=== PATIENT | female | born 1945 | race Caucasian/White ===

== ENCOUNTER 2018-12-16 11:54 | Inpatient (IN) ==
--- NOTE | 2018-12-16 13:00 | Emergency Department Note ---
Disposition Clinical Impression: Leg weakness Qualifiers: Laterality: left Qualified Code(s): R29.898 - Other symptoms and signs involving the musculoskeletal system Disposition: Admitted As Inpatient Condition: Good Time of Disposition: 16:57 Weakness HPI - General Chief complaint: ED Weakness Stated complaint: difficulty walking Time Seen by Provider: 12/16/18 12:00 Source: EMS Mode of arrival: ambulatory Limitations: no limitations Nursing Notes Reviewed: Yes Vital Signs Reviewed: Yes - History of Present Illness HPI Narrative: 73-year-old female presents to the emergency department for generalized weakness. Home health nurse came in today and said that she was having a more difficult time walking or worried that something was wrong. Patient has had no fevers, chills, cough congestion, painful urination or any pain anywhere else. She says she does feel little bit weaker in her legs where she is having more difficult time lifting up and moving them.. Patient said she noticed this about 2-3 days ago and it slowly progressively gotten worse. She is not complaining of any pain. She did fall partly 2 weeks ago said she has been acting normal since then. Patient otherwise having no other complaints at this time. Pain Scale: 0 - Related Data Allergies Allergy/AdvReac Type Severity Reaction Status Date / Time No Known Allergies Allergy Verified 11/20/18 11:42 All systems ED: reviewed and negative except as stated. Review of Systems: As Per HPI Past Medical History - Past Medical History Attestation: Yes The following information was validated with the patient. Source: patient Medical history: Reports: CVA, hyperlipidemia, hypertension, myocardial infarction, seizures Psychiatric history: Reports: no psych history - Social History Smoking Status: Light tobacco smoker Smokeless Tobacco Status: No Alcohol use: Reports: none Drug use: Reports: none Physical Exam - General Limitations: no limitations General appearance: alert, in no apparent distress - Head Head exam: atraumatic, normocephalic, normal inspection - Eye Eye exam: Present: normal appearance, PERRL, EOMI - ENT ENT exam: normal exam, normal oropharynx, mucous membranes moist - Neck Neck exam: Present: normal inspection, full ROM, trachea midline - Chest Chest inspection: Present: normal inspection, symmetric chest wall rise - Respiratory Respiratory exam: Present: normal lung sounds bilaterally - Cardiovascular Cardiovascular exam: Present: regular rate, normal rhythm, normal heart sounds - Abdominal Exam Abdominal exam: Present: soft, Non-Tender, normal bowel sounds. Absent: tenderness, distention, guarding, rebound, rigidity - Extremities Exam Extremities exam: Present: normal inspection, full ROM. Absent: tenderness, pedal edema - Back Exam Back exam: Present: normal inspection, full ROM. Absent: tenderness, CVA tenderness (R), CVA tenderness (L) - Neurological Exam Neurological exam: Present: alert, oriented X3 - Expanded Neurological Exam Patient oriented to: Present: person, place, time Cranial nerves: EOM function (II, III, IV, ): Normal, facial sensation (V): Normal, facial palsy (VII): Normal, spinal accessory function (XI): Normal, tongue deviation (XII): Normal Cerebellar function: finger to nose: Normal, heel to martinez: Normal Motor strength - LUE: 4/5 Motor strength - RUE: 4/5 Motor strength - LLE: 4/5 Motor strength - RLE: 4/5 Upper motor neuron exam: rosette neglect: Absent bilaterally, pronator drift: Absent bilaterally Sensory exam upper extremity: light touch: Normal Sensory exam lower extremity: light touch: Normal Coma Scale Eye Opening: Spontaneous Coma Scale Motor Response: Obeys Commands Coma Scale Verbal Response: Oriented Coma Scale Total: 15 - Skin Skin exam: Present: warm, dry, intact, normal color Course Course Narrative: We have basic lab work including CBC BMP, mag, urinalysis chest x-ray troponin as well as a CT of the head throat any acute pathology. Patient stable at this time. Disposition is pending results Vital Signs Temperature 97.7 F 12/16/18 11:56 Pulse Rate 61 12/16/18 11:56 Respiratory Rate 16 12/16/18 11:56 Blood Pressure 161/61 12/16/18 11:56 O2 Sat by Pulse Oximetry 100 12/16/18 11:56 Temperature 97.7 F 12/16/18 11:56 Pulse Rate 95 12/16/18 13:53 Respiratory Rate 16 12/16/18 11:56 Blood Pressure 153/70 12/16/18 13:53 O2 Sat by Pulse Oximetry 100 12/16/18 13:53 Oxygen Delivery Oxygen Delivery Room Air Weakness - MDM Narrative Medical decision making narrative: 73-year-old female here with weakness. Labs BACK no acute abnormalities. Lumbar x-ray had no acute findings head CT also was normal. Patient is still unable to walk but she did have a normal neurological exam of both motor and sensation to both legs bilaterally. Due to this they wanted to admit the patient for further evaluation of the leg weakness. Patient's okay with this plan. Spoke with the on-call hospitalist Dr. Kruse who agreed to admit the patient to their service. Patient is admitted in stable condition. They wanted us to speak with pain management and Dr. Funes before the admission. I did speak with both of them and they said they will consult and see the patient while in the hospital. Patient stable at time of disposition Chest X-Ray 12/16/18 12:18 IMPRESSION: No acute process. D/ / Rashid Izquierdo MD / Rashid Izquierdo MD Interpreting Provider: Rashid Izquierdo MD Head CT 12/16/18 12:18 IMPRESSION: No acute intracranial abnormality. Multiple remote infarcts as described above. Consider MRI for further evaluation. D/ / Evin Maki MD / Evin Maki MD Interpreting Provider: Evin Maki MD Lumbar Spine X-Ray 12/16/18 12:19 IMPRESSION: Unchanged compression deformity of L1 and moderate multilevel degenerative changes. D/ / Evin Maki MD / Evin Maki MD Interpreting Provider: Evin Maki MD - Medical Records Medical records reviewed: Yes I reviewed the patient's medical records. - Lab Data Lab results reviewed: Yes I reviewed the patient's lab results. Result diagrams: 12/16/18 13:30 12/16/18 13:55 Lab Results 12/16/18 12/16/18 12/16/18 Range/Units 13:05 13:30 13:30 WBC 6.5 (4.3-11.1) K/mcL RBC 3.90 (3.82-4.97) M/mcL Hgb 12.5 (11.5-15.4) g/dL Hct 38.6 (35.3-44.9) % MCV 99.0 (83.0-100.0) fL MCH 32.1 (28.0-33.3) pg MCHC 32.4 (31.6-35.5) g/dL RDW 14.0 (11.5-14.5) % Plt Count 121 L (140-400) K/mcL MPV 10.5 (9.4-12.4) fL Immature Gran % 0.3 (0-4) % Seg Neutrophils % 65.0 % Lymphocytes % 23.5 % Monocytes % 8.8 % Eosinophils % 1.8 % Basophils % 0.6 % Neutrophils # 4.2 (1.6-8.9) K/mcL Lymphocytes # 1.5 (0.6-4.6) K/mcL Monocytes # 0.6 (0.0-1.3) K/mcL Eosinophils # 0.1 (0.0-0.6) K/mcL Basophils # 0.0 (0.0-0.2) K/mcL Sodium (136-145) mEq/L Potassium (3.5-5.1) mEq/L Chloride (98-107) mEq/L Carbon Dioxide (23-29) mEq/L BUN (8-23) mg/dL Creatinine (0.60-1.20) mg/dL Est GFR ( Amer) (> 60) Est GFR (Non-Af Amer) (> 60) BUN/Creatinine Ratio (6-26) Glucose (70-105) mg/dL Calculated Osmolality (280-300) Calcium (8.6-10.3) mg/dL Magnesium (1.6-2.6) mg/dL Total Bilirubin (0.3-1.0) mg/dL AST (13-39) Units/L ALT (7-52) Units/L Alkaline Phosphatase (34-104) Units/L Troponin I < 0.03 (< 0.04) ng/mL Serum Total Protein (6.4-8.9) g/dL Albumin (3.5-5.7) g/dL Globulin (2.4-3.5) g/dL Albumin/Globulin Ratio (1.1-2.2) Urine Color (Yellow) Urine Clarity (Clear) Urine pH (5.0-8.0) pH Units Ur Specific [place] (1.010-1.025) Urine Protein (Neg-Trace) mg/dL Urine Glucose (UA) (Normal) mg/dL Urine Ketones (Negative) mg/dL Urine Blood (Negative) Urine Nitrite (Negative) Urine Bilirubin (Negative) Urine Urobilinogen (Normal) mg/dL Ur Leukocyte Esterase (Negative) Ur Culture Indicated? (NO) Specimen Rejected Hemolyzed 12/16/18 12/16/18 Range/Units 13:40 13:55 WBC (4.3-11.1) K/mcL RBC (3.82-4.97) M/mcL Hgb (11.5-15.4) g/dL Hct (35.3-44.9) % MCV (83.0-100.0) fL MCH (28.0-33.3) pg MCHC (31.6-35.5) g/dL RDW (11.5-14.5) % Plt Count (140-400) K/mcL MPV (9.4-12.4) fL Immature Gran % (0-4) % Seg Neutrophils % % Lymphocytes % % Monocytes % % Eosinophils % % Basophils % % Neutrophils # (1.6-8.9) K/mcL Lymphocytes # (0.6-4.6) K/mcL Monocytes # (0.0-1.3) K/mcL Eosinophils # (0.0-0.6) K/mcL Basophils # (0.0-0.2) K/mcL Sodium 133 L (136-145) mEq/L Potassium 4.7 (3.5-5.1) mEq/L Chloride 108 H (98-107) mEq/L Carbon Dioxide 18 L (23-29) mEq/L BUN 39 H (8-23) mg/dL Creatinine 1.73 H (0.60-1.20) mg/dL Est GFR ( Amer) 35 L (> 60) Est GFR (Non-Af Amer) 29 L (> 60) BUN/Creatinine Ratio 23 (6-26) Glucose 83 (70-105) mg/dL Calculated Osmolality 285 (280-300) Calcium 9.9 (8.6-10.3) mg/dL Magnesium 2.1 (1.6-2.6) mg/dL Total Bilirubin 0.6 (0.3-1.0) mg/dL AST 13 (13-39) Units/L ALT 9 (7-52) Units/L Alkaline Phosphatase 87 (34-104) Units/L Troponin I (< 0.04) ng/mL Serum Total Protein 7.0 (6.4-8.9) g/dL Albumin 4.3 (3.5-5.7) g/dL Globulin 2.7 (2.4-3.5) g/dL Albumin/Globulin Ratio 1.6 (1.1-2.2) Urine Color Yellow (Yellow) Urine Clarity Clear (Clear) Urine pH 5.5 (5.0-8.0) pH Units Ur Specific [place] 1.015 (1.010-1.025) Urine Protein Negative (Neg-Trace) mg/dL Urine Glucose (UA) Normal (Normal) mg/dL Urine Ketones Negative (Negative) mg/dL Urine Blood Negative (Negative) Urine Nitrite Negative (Negative) Urine Bilirubin Negative (Negative) Urine Urobilinogen Normal (Normal) mg/dL Ur Leukocyte Esterase Negative (Negative) Ur Culture Indicated? NO (NO) Specimen Rejected - Radiology Data Radiology results reviewed: Yes I reviewed the patient's radiology results. - EKG Data EKG attestation: Yes I reviewed and interpreted this EKG. EKG results narrative: EKG done at 1227 review by myself and attending shows sinus rhythm a rate of 61, CT interval 209, QRS 98, QTC 434. There is no acute ST changes no acute T-wave changes no other signs of ischemia. No signs of hypertrophy, heart strain, heart block. No WPW/Brugada/HOCM. No old EKG to compare with Attestation Statement - Attestation Attestation: I, Govind Sharma DO, examined this patient [id number] and my medical decision-making was reviewed with Dr. Ismael Oropeza, Resident Physician. I agree with the documented findings, disposition and treatment plan as described except to the extent set forth below. I personally supervised and was present for the busch/critical portions of the procedures completed by the resident documented below. Please see my progress notes for details.
[2018-12-16 13:39] LABS: Basophils % 0.6 %; Eosinophils # 0.1 K/mcL (0.0-0.6); Eosinophils % 1.8 %; Hematocrit 38.6 % (35.3-44.9); Hemoglobin 12.5 g/dL (11.5-15.4); Immature Granulocytes % 0.3 % (0-4); Lymphocytes # 1.5 K/mcL (0.6-4.6); Lymphocytes % 23.5 %; Mean Corpuscular HGB Conc 32.4 g/dL (31.6-35.5); Mean Corpuscular Hemoglobin 32.1 pg (28.0-33.3); Mean Platelet Volume 10.5 fL (9.4-12.4); Monocytes # 0.6 K/mcL (0.0-1.3); Monocytes % 8.8 %; Neutrophils # 4.2 K/mcL (1.6-8.9); Platelet Count 121 K/mcL (140-400)
--- NOTE | 2018-12-16 13:46 | Emergency Department Note ---
Disposition Clinical Impression: Leg weakness Qualifiers: Laterality: left Qualified Code(s): R29.898 - Other symptoms and signs involving the musculoskeletal system Disposition: Admitted As Inpatient Condition: Fair Referrals: NONE,PCP [Primary Care Provider] - Time of Disposition: 17:38 General Adult HPI - General Chief complaint: ED Weakness Stated complaint: difficulty walking Time Seen by Provider: 12/16/18 12:00 Source: EMS Mode of arrival: ambulatory Limitations: no limitations - History of Present Illness Pain Scale: 0 - Related Data Allergies Allergy/AdvReac Type Severity Reaction Status Date / Time No Known Allergies Allergy Verified 11/20/18 11:42 Past Medical History - Past Medical History Medical history: Reports: CVA, hyperlipidemia, hypertension, myocardial infarction, seizures Psychiatric history: Reports: no psych history - Social History Smoking Status: Light tobacco smoker Smokeless Tobacco Status: No Alcohol use: Reports: none Drug use: Reports: none Physical Exam - General Limitations: no limitations General appearance: alert, in no apparent distress Course Vital Signs Temperature 97.7 F 12/16/18 11:56 Pulse Rate 61 12/16/18 11:56 Respiratory Rate 16 12/16/18 11:56 Blood Pressure 161/61 12/16/18 11:56 O2 Sat by Pulse Oximetry 100 12/16/18 11:56 Temperature 97.7 F 12/16/18 11:56 Pulse Rate 95 12/16/18 13:53 Respiratory Rate 16 12/16/18 11:56 Blood Pressure 153/70 12/16/18 13:53 O2 Sat by Pulse Oximetry 100 12/16/18 13:53 Oxygen Delivery Oxygen Delivery Room Air Medical Decision Making - Lab Data Result diagrams: 12/16/18 13:30 12/16/18 13:55 Lab Results 12/16/18 12/16/18 12/16/18 Range/Units 13:05 13:30 13:30 WBC 6.5 (4.3-11.1) K/mcL RBC 3.90 (3.82-4.97) M/mcL Hgb 12.5 (11.5-15.4) g/dL Hct 38.6 (35.3-44.9) % MCV 99.0 (83.0-100.0) fL MCH 32.1 (28.0-33.3) pg MCHC 32.4 (31.6-35.5) g/dL RDW 14.0 (11.5-14.5) % Plt Count 121 L (140-400) K/mcL MPV 10.5 (9.4-12.4) fL Immature Gran % 0.3 (0-4) % Seg Neutrophils % 65.0 % Lymphocytes % 23.5 % Monocytes % 8.8 % Eosinophils % 1.8 % Basophils % 0.6 % Neutrophils # 4.2 (1.6-8.9) K/mcL Lymphocytes # 1.5 (0.6-4.6) K/mcL Monocytes # 0.6 (0.0-1.3) K/mcL Eosinophils # 0.1 (0.0-0.6) K/mcL Basophils # 0.0 (0.0-0.2) K/mcL Sodium (136-145) mEq/L Potassium (3.5-5.1) mEq/L Chloride (98-107) mEq/L Carbon Dioxide (23-29) mEq/L BUN (8-23) mg/dL Creatinine (0.60-1.20) mg/dL Est GFR ( Amer) (> 60) Est GFR (Non-Af Amer) (> 60) BUN/Creatinine Ratio (6-26) Glucose (70-105) mg/dL Calculated Osmolality (280-300) Calcium (8.6-10.3) mg/dL Magnesium (1.6-2.6) mg/dL Total Bilirubin (0.3-1.0) mg/dL AST (13-39) Units/L ALT (7-52) Units/L Alkaline Phosphatase (34-104) Units/L Troponin I < 0.03 (< 0.04) ng/mL Serum Total Protein (6.4-8.9) g/dL Albumin (3.5-5.7) g/dL Globulin (2.4-3.5) g/dL Albumin/Globulin Ratio (1.1-2.2) Urine Color (Yellow) Urine Clarity (Clear) Urine pH (5.0-8.0) pH Units Ur Specific [place] (1.010-1.025) Urine Protein (Neg-Trace) mg/dL Urine Glucose (UA) (Normal) mg/dL Urine Ketones (Negative) mg/dL Urine Blood (Negative) Urine Nitrite (Negative) Urine Bilirubin (Negative) Urine Urobilinogen (Normal) mg/dL Ur Leukocyte Esterase (Negative) Ur Culture Indicated? (NO) Specimen Rejected Hemolyzed 12/16/18 12/16/18 Range/Units 13:40 13:55 WBC (4.3-11.1) K/mcL RBC (3.82-4.97) M/mcL Hgb (11.5-15.4) g/dL Hct (35.3-44.9) % MCV (83.0-100.0) fL MCH (28.0-33.3) pg MCHC (31.6-35.5) g/dL RDW (11.5-14.5) % Plt Count (140-400) K/mcL MPV (9.4-12.4) fL Immature Gran % (0-4) % Seg Neutrophils % % Lymphocytes % % Monocytes % % Eosinophils % % Basophils % % Neutrophils # (1.6-8.9) K/mcL Lymphocytes # (0.6-4.6) K/mcL Monocytes # (0.0-1.3) K/mcL Eosinophils # (0.0-0.6) K/mcL Basophils # (0.0-0.2) K/mcL Sodium 133 L (136-145) mEq/L Potassium 4.7 (3.5-5.1) mEq/L Chloride 108 H (98-107) mEq/L Carbon Dioxide 18 L (23-29) mEq/L BUN 39 H (8-23) mg/dL Creatinine 1.73 H (0.60-1.20) mg/dL Est GFR ( Amer) 35 L (> 60) Est GFR (Non-Af Amer) 29 L (> 60) BUN/Creatinine Ratio 23 (6-26) Glucose 83 (70-105) mg/dL Calculated Osmolality 285 (280-300) Calcium 9.9 (8.6-10.3) mg/dL Magnesium 2.1 (1.6-2.6) mg/dL Total Bilirubin 0.6 (0.3-1.0) mg/dL AST 13 (13-39) Units/L ALT 9 (7-52) Units/L Alkaline Phosphatase 87 (34-104) Units/L Troponin I (< 0.04) ng/mL Serum Total Protein 7.0 (6.4-8.9) g/dL Albumin 4.3 (3.5-5.7) g/dL Globulin 2.7 (2.4-3.5) g/dL Albumin/Globulin Ratio 1.6 (1.1-2.2) Urine Color Yellow (Yellow) Urine Clarity Clear (Clear) Urine pH 5.5 (5.0-8.0) pH Units Ur Specific [place] 1.015 (1.010-1.025) Urine Protein Negative (Neg-Trace) mg/dL Urine Glucose (UA) Normal (Normal) mg/dL Urine Ketones Negative (Negative) mg/dL Urine Blood Negative (Negative) Urine Nitrite Negative (Negative) Urine Bilirubin Negative (Negative) Urine Urobilinogen Normal (Normal) mg/dL Ur Leukocyte Esterase Negative (Negative) Ur Culture Indicated? NO (NO) Specimen Rejected Attestation Statement - Attestation Attestation: I, Govind Sharma DO, examined this patient [id number] and my medical decision-making was reviewed with Dr. Ismael Oropeza Resident Physician. I agree with the documented findings, disposition and treatment plan as described except to the extent set forth below. I personally supervised and was present for the busch/critical portions of the procedures completed by the resident documented below. Please see my progress notes for details. 73-year-old female presents emergency room with complaint of generalized weakness. Patient was seen by her home health aide today and they are concerned because of her acting ill. She denies any fevers or chills. She has not fallen or injured herself recently. She did fall one week ago. She is on Plavix. She denies any chest pain or shortness of breath. She has not had any other compla ints or issues at this point. She does have a known lower lumbar related issue at his had MRI completed approximate one month ago. She is chronically incontinent of urine. Denies any other symptoms or complaints at this point. Patient is resting comfortably in the bed. She is slightly slow to respond but shows no neurologic deficits. Pupils are equal round reactive. Extraocular muscles are intact. Oropharynx is patent. Trachea is midline. Lungs are clear. Heart is regular. She has no guarding or rigidity to the abdomen. She has no point tenderness at this time. No pulsatile masses or lesions noted. Extremities otherwise normal. No visible signs of ataxia. Patient does have w eakness in the lower extremities were otherwise her pulses are intact. Weakness is chronic in nature. Patient does not have any other complaints or issues at this point. Screening evaluation clinic CT the head chest x-ray EKG CBC chemistry troponin and urinalysis along with imaging of the lumbar spine will be completed. Patient is otherwise stable. She does not want any pain medication at this time. She denies any other complaints or issues. See detailed documentation of the physical exam, medical intervention, medical decision- making and disposition in the resident physician's note. No critical care by the patient's treatment course at this time. 1715 Patient has negative workup. This time. Admission process to be established secondary to inability to ambulate and weakness in her left leg. MRI imaging was reviewed. The hospitalist was contacted in detailed review the presentation symptoms medical history were discussed. Dr. Noel reviewed the case. She requested that a consult be placed for spinal surgery. We did discuss the findings with the on-call spinal physician Dr. Funes. Recommended consultation the inpatient setting for evaluation. Otherwise no other emergent intervention required. Patient will be managed here in the emergency department until the admission process is completed. No other acute issues noted during this treatment course are evaluation. Patient otherwise stable.
[2018-12-16 13:50] LABS: Bilirubin,Urine Negative (Negative); Blood,Urine Negative (Negative); Clarity,Urine Clear (Clear); Color,Urine Yellow (Yellow); Glucose,Urine (UA) Normal (Normal); Ketones,Urine Negative (Negative); Leukocyte Esterase,Urine Negative (Negative); Nitrite,Urine Negative (Negative); PH,Urine 5.5 pH Units (5.0-8.0); Protein,Urine Negative (Neg-Trace); Specific Gravity,Urine 1.015 (1.010-1.025); Urobilinogen,Urine Normal (Normal)
[2018-12-16 15:11] LABS: Albumin 4.3 g/dL (3.5-5.7); Albumin/Globulin Ratio 1.6 (1.1-2.2); Bilirubin,Total 0.6 mg/dL (0.3-1.0); Calcium 9.9 mg/dL (8.6-10.3); Globulin 2.7 g/dL (2.4-3.5); Potassium 4.7 mEq/L (3.5-5.1)
[2018-12-16 15:47] LABS: Magnesium 2.1 mg/dL (1.6-2.6)
--- NOTE | 2018-12-16 17:01 | Internal Med History&Physical ---
Date of Encounter: 12/16/18 Time of Encounter: 16:53 Internal Medicine - H&P: HPI Chief complaint: leg weakness Admitted From: Home Plans for Post Hospital Care: Transfer Halfway Facility History of present illness: Ms. Paige is a 73 year old female with past medical history of CVA, seizures, hypertension, hyperlipidemia, peripheral vascular disease status post stenting, [place] in 97 history of incontinence for about 7 years came in as she was sent by home health as she was concerned about her weakness. Patient mentioned she has been feeling difficulty walking for past 3-4 days especially on her right leg. Mentions her left leg feels at baseline but right feels weak. Denies any numbness or tingling. She has baseline urinary incontinence for 7 years which was managed by primary care physician. She does not know why she had incontinence. Denies any bowel incontinence. Denies any fevers chills nausea vomiting or diarrhea. Denies any injury or fall except few months ago. She has chronic back pain since last year. Denies any vision difficulty or difficulty speaking or swallowing. Denies any abdominal pain. She has a history of peripheral vascular disease with a stent placed in 2012 for nonhealing ulcer on left leg. Denies any leg pain with ambulation before her current illness. Denies any shooting pain. Patient had a MRI done outpatient about a month ago which did not show any acute abnormality but showed spinal telma narrowing and foraminal narrowing in lumbar spine. Patient had x-ray of the spine which did not show any new finding except compression deformity at L1 and degenerative changes. Head CT was obtained which showed multiple remote infarcts. She does not know all of her medication but mentioned few which she is taking including Keppra, metoprolol, lisinopril, aspirin, vitamin D and iron. Nares any allergies. Does not know any family history significant in parents or siblings. Past Med Surg Social Fam HX - Past Medical History Medical history: CVA, hyperlipidemia, hypertension, myocardial infarction, seizures Additional medical history: Patient states she has a broken back but is unaware when she broke it. Psychiatric history: no psych history - Past Surgical History Additional surgical history: stent in heart, stent in leg. hysterectomy, appendectomy - Social History Smoking Status: Light tobacco smoker Smokeless Tobacco Status: No Alcohol use: none Drug use: none Internal Medicine - H&P: Meds Allergy/AdvReac Type Severity Reaction Status Date / Time No Known Allergies Allergy Verified 11/20/18 11:42 All Systems PM: A 10-system review of systems was performed and is negative for pertinent find ings except as documented above in the HPI. - Constitutional Vitals: Temp Pulse Resp BP Pulse Ox 97.7 F 95 16 153/70 100 12/16/18 11:56 12/16/18 13:53 12/16/18 11:56 12/16/18 13:53 12/16/18 13:53 Exam: Constitutional: Vitals as noted. Conversant. No Apparent Distress.slow to respond. Eyes : Sclera white, conjunctiva clear, no lid lag, PEARLA. ENT : Grossly normal hearing. Oropharyngeal exam unremarkable. Moist mucus membranes. No JVD, no cervical lymphadenopathy. no thyromegaly or mass. Respiratory : Clear to auscultation bilaterally. No accessory muscle use, rales, rhonchi or wheezes Cardiovascular : RRR, +S1, +S2. systolic murmur present, no gallop, rubs. GI/Abdominal : Soft, Non-tender, Non-distended, normal bowel sounds, soft, no peritoneal signs. Musculoskeletal: no edema or cyanosis. warm extremities, weak peripheral pulses b/l,no calf tenderness. Neurological: AO X3, CN II-XII grossly intact, LLE 3/5, 2/5 in RLE, weak Rt planter flexor and extensors than left. Pych: Good insight and judgement. Intact memory. AOx3. Internal Med - H&P Results - Labs CBC & Chem 7: 12/16/18 13:30 12/16/18 13:55 Labs: Short CBC 12/16/18 Range/Units 13:30 WBC 6.5 (4.3-11.1) K/mcL Hgb 12.5 (11.5-15.4) g/dL Hct 38.6 (35.3-44.9) % Plt Count 121 L (140-400) K/mcL Neutrophils # 4.2 (1.6-8.9) K/mcL BMP 12/16/18 13:55 Sodium 133 L Potassium 4.7 Chloride 108 H Carbon Dioxide 18 L BUN 39 H Creatinine 1.73 H Glucose 83 Calcium 9.9 Cardiac Enzymes 12/16/18 Range/Units 13:05 Troponin I < 0.03 (< 0.04) ng/mL Liver Function 12/16/18 Range/Units 13:55 Total Bilirubin 0.6 (0.3-1.0) mg/dL AST 13 (13-39) Units/L ALT 9 (7-52) Units/L Alkaline Phosphatase 87 (34-104) Units/L Albumin 4.3 (3.5-5.7) g/dL Urine 12/16/18 Range/Units 13:40 Urine Color Yellow (Yellow) Urine Clarity Clear (Clear) Urine pH 5.5 (5.0-8.0) pH Units Ur Specific [place] 1.015 (1.010-1.025) Urine Protein Negative (Neg-Trace) mg/dL Urine Glucose (UA) Normal (Normal) mg/dL - EKG Data -: EKG Interpreted by Myself - Impressions ITS Impressions Chest X-Ray 12/16/18 12:18 IMPRESSION: No acute process. D/ / Rashid Izquierdo MD / Rashid Izquierdo MD Interpreting Provider: Rashid Izquierdo MD Head CT 12/16/18 12:18 IMPRESSION: No acute intracranial abnormality. Multiple remote infarcts as described above. Consider MRI for further evaluation. D/ / Evin Maki MD / Evin Maki MD Interpreting Provider: Evin Maki MD Lumbar Spine X-Ray 12/16/18 12:19 IMPRESSION: Unchanged compression deformity of L1 and moderate multilevel degenerative changes. D/ / Evin Maki MD / Evin Maki MD Interpreting Provider: Evin Maki MD - Assessment and Plan (1) Right leg weakness Current Visit: Yes Status: Acute Assessment and plan: Concern for lower extremity weakness with difficulty walking for 3-4 days Right lower extremity weakness more pronounced than left Lumbar spinal imaging with compression fracture which is unchanged previous MRI with spinal Narrowing and Foraminal Narrowing CT had with multiple old strokes. Patient without any other focal deficit except right lower extremity weakness and unchanged left lower extremity weakness We will get MRI of brain to rule out any acute/subacute stroke. Will resume antiplatelet once confirmed Spinal surgery has been consulted for evaluation for spinal stenosis contributing to her symptoms (2) PVD (peripheral vascular disease) Current Visit: Yes Status: Acute (3) HTN (hypertension) Current Visit: Yes Status: Acute Assessment and plan: Relatively stable slightly on the higher end Hold home lisinopril for now given renal function Resume other antihypertensive after confirming pharmacy including metoprolol Qualifiers: Hypertension type: essential hypertension Qualified Code(s): I10 - Essential (primary) hypertension (4) Seizures Current Visit: Yes Status: Acute Assessment and plan: Patient on Keppra at home. Patient unaware of her dosage Reconfirm home dosage with pharmacy and resume (5) Acute kidney injury superimposed on CKD Current Visit: Yes Status: Acute Assessment and plan: Patient with some decreased appetite over the past few days We will keep on gentle IV fluids (6) DVT prophylaxis Current Visit: Yes Status: Acute Assessment and plan: heparin sc - Time Spent With Patient Total time spent is greater than 50% in coordination of care (as documented) at patient's floor/unit and/or counseling patient:
[2018-12-16] MEDS ORDERED: Naloxone 0.4 MG/ML INJ IVP PRN (17:46)
[2018-12-17] MEDS: Ringers Solution, Lactated 1,000 ML IVC SCH ×3 (00:35→23:27)
[2018-12-17] MEDS: *HR* Heparin 5,000 UNIT/ML VIAL SQ SCH ×4 (00:38→21:26)
[2018-12-17] MEDS ORDERED: Aspirin 81 MG TAB.CHEW PO ONE (06:13)
--- NOTE | 2018-12-17 08:08 | Internal Med Progress Note ---
Hospitalist Progress Note - Encounter Date of Encounter: 12/17/18 Time of Encounter: 08:05 - Subjective Interval History: Patient seen and examined this morning at bedside. No acute overnight events. Denies new complaints. Still complaining of back pain. Still with right lower extremity weakness - Exam Vitals: Temp Pulse Resp BP Pulse Ox 98 F 98 18 139/66 92 12/17/18 04:16 12/17/18 07:54 12/17/18 07:54 12/17/18 07:54 12/17/18 07:54 Exam: Constitutional: Vitals as noted. Conversant. No Apparent Distress.slow to respond. Respiratory : Clear to auscultation bilaterally. No accessory muscle use, rales, rhonchi or wheezes Cardiovascular : RRR, +S1, +S2. systolic murmur present, no gallop, rubs. GI/Abdominal : Soft, Non-tender, Non-distended, normal bowel sounds, soft, no peritoneal signs. Musculoskeletal: no edema or cyanosis. warm extremities, weak peripheral pulses b/l,no calf tenderness. Neurological: AO X3, CN II-XII grossly intact, LT Pupil slightly larger than rt but extarocular movement intact, LLE 3/5, 2/5 in RLE, weak Rt planter flexor and extensors than left. Pych: Good insight and judgement. Intact memory. AOx3. - Assessment and Plan (1) Right leg weakness Current Visit: Yes Status: Acute (2) PVD (peripheral vascular disease) Current Visit: Yes Status: Acute (3) HTN (hypertension) Current Visit: Yes Status: Acute (4) Seizures Current Visit: Yes Status: Acute (5) Acute kidney injury superimposed on CKD Current Visit: Yes Status: Acute (6) DVT prophylaxis Current Visit: Yes Status: Acute - Summary of Assessment and Plan Summary of Assessment and Plan: Assessment Right leg weakness Acute stroke PVD HTN Seizures Paulino DVT ppx Plan - MRI with acute stroke on Lt may be contributing to Rt LE weakness. Also with spinal Narrowing and Foraminal Narrowing on MRI. ortho and neuro consulted - Give aspirin 325. Is on aspirin and plavix at home.Will resume. Patient compliant. Await neurology recommendations. c/w Home seizure medications. f/u ECHO, carotid. c/w tele - c/w IVF. f/u labs - Hold antihypertensive for permissive HTN for now. - c/w home levothyroxin - Time Spent with Patient Total time spent is greater than 50% in coordination of care (as documented) at patient's floor/unit and/or counseling patient: Internal Medicine: Result - Labs CBC & Chem 7: 12/16/18 13:30 12/16/18 13:55 Labs: Short CBC 12/16/18 Range/Units 13:30 WBC 6.5 (4.3-11.1) K/mcL Hgb 12.5 (11.5-15.4) g/dL Hct 38.6 (35.3-44.9) % Plt Count 121 L (140-400) K/mcL Neutrophils # 4.2 (1.6-8.9) K/mcL BMP 12/16/18 13:55 Sodium 133 L Potassium 4.7 Chloride 108 H Carbon Dioxide 18 L BUN 39 H Creatinine 1.73 H Glucose 83 Calcium 9.9 Cardiac Enzymes 12/16/18 Range/Units 13:05 Troponin I < 0.03 (< 0.04) ng/mL Liver Function 12/16/18 Range/Units 13:55 Total Bilirubin 0.6 (0.3-1.0) mg/dL AST 13 (13-39) Units/L ALT 9 (7-52) Units/L Alkaline Phosphatase 87 (34-104) Units/L Albumin 4.3 (3.5-5.7) g/dL Urine 12/16/18 Range/Units 13:40 Urine Color Yellow (Yellow) Urine Clarity Clear (Clear) Urine pH 5.5 (5.0-8.0) pH Units Ur Specific [place] 1.015 (1.010-1.025) Urine Protein Negative (Neg-Trace) mg/dL Urine Glucose (UA) Normal (Normal) mg/dL - Impressions Impressions Chest X-Ray 12/16/18 12:18 IMPRESSION: No acute process. D/ / Rashid Izquierdo MD / Rashid Izquierdo MD Interpreting Provider: Rashid Izquierdo MD Head CT 12/16/18 12:18 IMPRESSION: No acute intracranial abnormality. Multiple remote infarcts as described above. Consider MRI for further evaluation. D/ / Evin Maki MD / Evin Maki MD Interpreting Provider: Evin Maki MD Lumbar Spine X-Ray 12/16/18 12:19 IMPRESSION: Unchanged compression deformity of L1 and moderate multilevel degenerative changes. D/ / Evin Maki MD / Evin Maki MD Interpreting Provider: Evin Maki MD Brain MRI 12/16/18 17:34 IMPRESSION: 1. Acute ischemic infarcts in the high left frontal lobe. 2. No mass effect or hemorrhage. 3. Left frontal and right occipital encephalomalacia in keeping with sequela of prior infarct. 4. Remote lacunar infarcts in the bilateral basal ganglia, thalami, and cerebellar hemispheres. D/ / Tee Robles / Tee Robles Interpreting Provider: Tee Robles Consult Discharge Plan - Plan Referrals: NONE,PCP [Primary Care Provider] - (3) HTN (hypertension) Qualifiers: Hypertension type: essential hypertension Qualified Code(s): I10 - Essential (primary) hypertension
[2018-12-17] MEDS: levETIRAcetam 250 MG TABLET PO SCH ×2 (08:57→21:25)
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
[2018-12-17] MEDS ORDERED: Perflutren Lipid Microsphere 1.3 ML in 0.9 % Sodium Chloride 8.7 ML IVP ONE (10:20)
[2018-12-17] MEDS: Nystatin POWDER 30 GM BOTTLE TP SCH ×2 (11:20→21:28)
[2018-12-17] MEDS: Aspirin Enteric Coated 81 MG Tablet PO SCH (12:37)
--- NOTE | 2018-12-17 15:12 | Electrocardiograph Report ---
[place] [id number] Test Date: 2018-12-16 Pat Name: Lanette Paige Department: [id number] Room: 2NE16 Gender: F Treasury Manager: : 1945 Requested By: Ismael Oropeza Order Number: [id number] Reading MD: Josef Berry Measurements Intervals Fisher Rate: 61 P: 93 KS: 209 QRS: 20 QRSD: 98 T: 151 QT: 430 QTc: 434 Interpretive Statements Sinus rhythm T wave abnormalities, lateral leads Electronically Signed On 12-17-2018 15:11:14 EDT by Josef Berry
--- NOTE | 2018-12-17 16:30 | Pain Management Consultation ---
Date of Encounter: 12/17/18 Time of Encounter: 16:30 Assessment and Plan (1) Leg weakness Current Visit: Yes Status: Acute The assessment and plan as outlined above was discussed with the patient and/or family members who expressed understanding and agreement. All questions were answered. The patient has acute findings suggestive of a central rather than peripheral disorder. I reviewed the MRI and do not feel as though, in combination with physical exam findings, the patient demonstrates an acute radiculopathy. Rather, the patient appears to have more acute weakness possibly coming from the brain and her complicated central nervous system history. Would recommend management based on prevailing acute stroke guidelines. I can see the patient in the spine Center on follow-up for continuity of care on discharge from the hospital. Qualifiers: Laterality: right Qualified Code(s): R29.898 - Other symptoms and signs involving the musculoskeletal system History of Present Illness Chief complaint: Right lower extremity weakness HPI: Ms. Paige is a 73 year old female Has fallen twice in the last week. The patient lives at home with her family. The patient complains of new onset right foot weakness and inability to move her foot in a dorsiflexion or plantarflexion manner. She has a history of seizure disorder as well as lumbar spine problems. The patient feels as this to be a new acute change. The patient has no additional complaints other than her leg feels as though she is unable to tell what to do. There is no sciatic involvement. The patient does not report pain and some words. The patient reports more acute weakness. She has a history of central nervous system disorder to include history of mini strokes. She reports no other additional symptoms and reports no bowel or bladder dysfunction. She does not complain of back pain at all. Past Med Surg Social Fam HX - Past Medical History Medical history: CVA, hyperlipidemia, hypertension, myocardial infarction, seizures Additional medical history: Lumbar stenosis Psychiatric history: no psych history - Past Surgical History Surgical History: angioplasty/stent Additional surgical history: stent in heart, stent in leg. hysterectomy, appendectomy - Social History Smoking Status: Light tobacco smoker Smokeless Tobacco Status: No Alcohol use: none Drug use: none - Family History Mother Hx Family Neuromuscular Disorders: No Medications and Allergies Amlodipine Besylate 5 mg PO DAILY 12/16/18 [History] Aspirin Enteric Coated [Aspirin EC] 81 mg PO DAILY 12/16/18 [History] Atorvastatin Calcium [Lipitor] 20 mg PO QPM 12/16/18 [History] Citalopram Hydrobromide [Citalopram HBr] 20 mg PO DAILY 12/16/18 [History] Clopidogrel [Plavix] 75 mg PO DAILY 12/16/18 [History] Ferrous Sulfate 325 mg PO DAILY 12/16/18 [History] Levothyroxine Sodium 88 mcg PO QAM 12/16/18 [History] Lisinopril [Zestril] 20 mg PO DAILY 12/16/18 [History] Metoprolol [Lopressor] 25 mg PO BID PRN 12/16/18 [History] levETIRAcetam [Keppra] 250 mg PO BID 12/16/18 [History] Allergy/AdvReac Type Severity Reaction Status Date / Time No Known Allergies Allergy Verified 11/20/18 11:42 Review of Systems - Constitutional Constitutional ROS IM: as per HPI - Cardiovascular Cardiovascular ROS: no chest pain, no leg edema, no lightheadedness - Respiratory Respiratory: no pain on inspiration, no pain with cough - Gastrointestinal Gastrointestinal: no abdominal pain, no constipation, no diarrhea, no heartburn - Genitourinary Genitourinary ROS: no difficulty urinating, no flank pain, no urinary hesitancy - Musculoskeletal Musculoskeletal ROS: abnormal gait, muscle weakness - Integumentary Integumentary: no erythema, no lesions, no swelling - Neurological Neurological ROS: abnormal gait, focal weakness - Psychiatric Psychiatric general: confusion - Hematologic/Lymphatic Hematologic/Lymphatic pediatric: no easy bleeding, no easy bruising Physical Exam Initial Vital Signs Temp Pulse Resp BP Pulse Ox 97.7 F 61 16 161/61 100 12/16/18 11:56 12/16/18 11:56 12/16/18 11:56 12/16/18 11:56 12/16/18 11:56 - General physical appearance General physical appearance: awake & oriented, no distress - Eyes Eye exam: PERRL - Respiratory normal respiratory effort - Integumentary Integumentary general surgery: no rash - Neurologic normal sensation - Musculoskeletal Musculoskeletal: other (Weakness with dorsiflexion and plantarflexion at 0/5) - Psychiatric Psychiatric: oriented to time, oriented to person, oriented to place Results - Labs 12/16/18 13:30 12/16/18 13:55 Abnormal lab results Plt Count 121 K/mcL (140-400) L 12/16/18 13:30 Sodium 133 mEq/L (136-145) L 12/16/18 13:55 Chloride 108 mEq/L (98-107) H 12/16/18 13:55 Carbon Dioxide 18 mEq/L (23-29) L 12/16/18 13:55 BUN 39 mg/dL (8-23) H 12/16/18 13:55 1.73 mg/dL (0.60-1.20) H 12/16/18 13:55 Est GFR ( Amer) 35 (> 60) L 12/16/18 13:55 Est GFR (Non-Af Amer) 29 (> 60) L 12/16/18 13:55 All other labs normal. - Imaging Additional studies: I reviewed the lumbar MRI from 11/14/2018 as well as the MRI of the brain from 12/16/2018. Acute neurological findings on MRI of the brain. MRI lumbar spine demonstrates multiple degenerative changes and focal stenosis in January scoliosis throughout. No acute changes on MRI of the lumbar spine noted. Consult Discharge Plan - Plan Referrals: NONE,PCP [Primary Care Provider] -
[2018-12-18] MEDS: *HR* Heparin 5,000 UNIT/ML VIAL SQ SCH ×3 (05:25→22:04)
[2018-12-18 06:54] LABS: Potassium 4.3 mEq/L (3.5-5.1)
--- NOTE | 2018-12-18 08:17 | Cardiology Consult Note ---
Date of Encounter: 12/18/18 Assessment and Plan Discussion w patient/family: The assessment and plan as outlined above was discussed with the patient and/or family members who expressed understanding and agreement. All questions were answered. Thank you for involving us in the care of your patient. Please call with any questions. History of Present Illness History of present illness: Ms. Paige is a 73 year old female Past Med Surg Social Fam HX - Past Medical History Medical history: CVA, hyperlipidemia, hypertension, myocardial infarction, seizures Additional medical history: Lumbar stenosis Psychiatric history: no psych history - Past Surgical History Surgical History: angioplasty/stent Additional surgical history: stent in heart, stent in leg. hysterectomy, appendectomy - Social History Smoking Status: Light tobacco smoker Smokeless Tobacco Status: No Alcohol use: none Drug use: none - Family History Mother Hx Family Neuromuscular Disorders: No Medications and Allergies Amlodipine Besylate 5 mg PO DAILY 12/16/18 [History] Aspirin Enteric Coated [Aspirin EC] 81 mg PO DAILY 12/16/18 [History] Atorvastatin Calcium [Lipitor] 20 mg PO QPM 12/16/18 [History] Citalopram Hydrobromide [Citalopram HBr] 20 mg PO DAILY 12/16/18 [History] Clopidogrel [Plavix] 75 mg PO DAILY 12/16/18 [History] Ferrous Sulfate 325 mg PO DAILY 12/16/18 [History] Levothyroxine Sodium 88 mcg PO QAM 12/16/18 [History] Lisinopril [Zestril] 20 mg PO DAILY 12/16/18 [History] Metoprolol [Lopressor] 25 mg PO BID PRN 12/16/18 [History] levETIRAcetam [Keppra] 250 mg PO BID 12/16/18 [History] Allergy/AdvReac Type Severity Reaction Status Date / Time No Known Allergies Allergy Verified 11/20/18 11:42 All Systems Review: The remainder of the systems were reviewed and are negative Physical Examination Vital Signs, Last 4 Hours Temp Pulse Resp BP Pulse Ox 12/18/18 07:02 98.0 F 60 16 126/69 12/18/18 05:07 66 18 238/66 12/18/18 04:31 98.2 F 54 16 128/66 96 Results 12/16/18 13:30 12/18/18 04:09 Lab Results 12/18/18 04:09 Sodium 137 Potassium 4.3 Chloride 108 H Carbon Dioxide 21 L BUN 33 H Creatinine 1.64 H Glucose 78 Calcium 10.0 Consult Discharge Plan - Plan Referrals: NONE,PCP [Primary Care Provider] -
[2018-12-18] MEDS: Aspirin Enteric Coated 81 MG Tablet PO SCH (08:39)
[2018-12-18] MEDS: levETIRAcetam 250 MG TABLET PO SCH ×2 (08:39→22:04)
[2018-12-18] MEDS: Nystatin POWDER 30 GM BOTTLE TP SCH ×2 (08:41→22:09)
[2018-12-18] MEDS ORDERED: *HR* Midazolam HCl 5 MG/5 ML VIAL IVP PRN (09:18)
[2018-12-18] MEDS ORDERED: *HR* FentaNYL (PF) 100 MCG/2 ML VIAL IVP PRN (09:18)
[2018-12-18] MEDS ORDERED: 0.9 % Sodium Chloride 500 ML IVC ONE (09:18)
[2018-12-18] MEDS ORDERED: Lidocaine Viscous Oral Soln 15 ML SOLUTION MM PRN (09:18)
--- NOTE | 2018-12-18 09:32 | Neurology Progress Note ---
<Margarito Arteaga - Last Filed: 12/18/18 14:17> Date of Encounter: 12/18/18 Time of Encounter: 09:30 Assessment and Plan (1) Acute CVA (cerebrovascular accident) Current Visit: Yes Status: Acute Dx. Ischemic stroke in the high left frontal lobe Ischemia appears to be in both the left SHANIKA and MCA territories As such this is concerning for an embolic source No h/o a-fib and not on AC Briefly, On presentation right leg weakness and ambulatory dysfunction x 3-days MRI brain-acute ischemic infarcts in the high left frontal lobe; again appear to be SHANIKA, MCA territory Currently taking DAPT (ASA and Statin); agree with continuing Carotid duplex imaging reveals 40-59% stenosis of both internal carotid arteries TTE-No PFO or embolic source identified KATRINA-No PFO, no thrombus in LT atrial appendage; with negative findings and no h/o a-fib AC not recommended She continues to display Rt leg weakness but this appears to be somewhat improved on today's exam. She has had use of her Rt leg throughout this stay but it has been weak. I suspect that with therapy and time she may regain close to normal strength and function of her Rt leg. In regards to her neuroimaging and subsequent workup there does not appear to any embolic source. We would not recommend altering current treatment modalities at this juncture. She should follow up with the neurology team within 5-7 days of discharge given acute CVA. Continue tele C/W Neuro assessments per protocol Okay to begin to normalize BP as she is day 5 from [facility] Recommend PT/OT Aggressive risk factor modifications d/w patient (2) Right leg weakness Current Visit: Yes Status: Acute Subjective Principal diagnosis: acute CVA Interval history: Seen at the bedside today for follow-up for acute CVA. Discussed MRI findings including infarct in 2 territories both MCA and SHANIKA. Further, discussed the need for a metabolic evaluation with KATRINA. Patient verbalizes understanding. Denies any further questions. Clinically, she remained stable without any new focal neurological deficits and appears to have somewhat improved. Objective - Constitutional Vitals: Temp Pulse Resp BP Pulse Ox 98.0 F 60 16 126/69 96 12/18/18 07:02 12/18/18 07:02 12/18/18 07:02 12/18/18 07:02 12/18/18 04:31 Exam: Examination: General Examination: *CONSTITUTIONAL: Alert and oriented x3, no acute distress *GENERAL APPEARANCE OF PATIENT elderly female *EYES: pupils equal, round, reactive to light and accommodation, conjunct audra clear *CARDIOVASCULAR no peripheral edema, distal temperature normal, dorsalis pedis pulses normal. see vital signs Musculoskeletal: *GAIT AND STATION deferred, unable to stand d/t right leg weakness *ASSESSMENT OF MUSCLE STRENGTH IN THE UPPER AND LOWER EXTREMITIES right deltoid, bicep, tricep, bumper operator strength 5/5, right hip flexors ,anterior tibialis, dorsoflexion of the foot 4/5, still has some drift present of RLE but overall strength is improved compared to yesterday. left deltoid, bicep, tricep, bumper operator strength, hip flexors ,anterior tibialis, dorsoflexion of the foot 5/5 *MUSCLE TONE IN THE UPPER AND LOWER EXTREMITIES normal. No abnormal movements, fasciculations or atrophy identified. Neurological: *ORIENTATION to person, situation, time and place *RECURRENT AND REMOTE MEMORY intact *ATTENTION AND CONCENTRATION are normal *LANGUAGE FUNCTION no significant aphasia or dysarthia was noted. *FUND OF KNOWLEDGE aware of current events, past history, vocabulary *MENTAL attention span and concentration normal. *CN II optic fundi were normal, no papilledema noted. *CN III,IV, PERRLA extraocular eye movements were full, no nystagmus and no ptosis noted. *CN V shows normal sensation and jaw opens symmetrically. *CN VII shows normal facial movement symmetrically, upper and lower b ilaterally. *CN VIII shows no significant hearing loss on exam *CN IX,,X palate elevated symmetrically *CN XI normal strength in the sternocleidomastoid muscles, symmetrical shoulder shrugging. *CN XII tongue protruded in the midline, with normal strength and movement. *SENSORY EXAMINATION light touch intact *REFLEXES: deep tendon reflexes were normal and symmetrical , grade 2/4 diffusely, no pathological reflexes were noted. *CEREBELLAR TESTING normal finger to nose, heel/knee/martinez *PAIN LEVEL 0 Results - Laboratory Findings CBC and BMP: 12/16/18 13:30 12/18/18 04:09 Abnormal lab findings: Abnormal lab results Plt Count 121 K/mcL (140-400) L 12/16/18 13:30 Sodium 133 mEq/L (136-145) L 12/16/18 13:55 Chloride 108 mEq/L (98-107) H 12/18/18 04:09 Carbon Dioxide 21 mEq/L (23-29) L 12/18/18 04:09 BUN 33 mg/dL (8-23) H 12/18/18 04:09 1.64 mg/dL (0.60-1.20) H 12/18/18 04:09 Est GFR ( Amer) 37 (> 60) L 12/18/18 04:09 Est GFR (Non-Af Amer) 31 (> 60) L 12/18/18 04:09 Consult Discharge Plan - Plan Referrals: NONE,PCP [Primary Care Provider] - <Jason Ram - Last Filed: 12/18/18 17:13> Date of Encounter: 12/18/18 Assessment and Plan (1) Right leg weakness Current Visit: Yes Status: Acute (2) Acute CVA (cerebrovascular accident) Current Visit: Yes Status: Acute I have personally performed a aton-[id number]-bnyk assessment of the patient and have reviewed the PA/FACTORY WORKER note. My impressions are as follows: I agree entirely with the assessment to and plan as stated by the CIVIL ENGINEERING ASSISTANT. Unfor tunately, I believe that these events his simply secondary to intracranial atherosclerotic disease. Anticoagulation is not proven to be of any benefit then this scenario. Simply recommend maintaining her clopidogrel and aspirin 81 mg. Aggressive management of risk factors as stated above. We will reevaluate at your request. Subjective Interval history: Chart was reviewed in its entirety, the patient was seen and examined independently. Test results from today were reviewed. KATRINA reveals no evidence of a cardioembolic source. Patient does seem to be clinically improved that she has increased strength in the right lower extremity today. She is able to raise the right leg off the bed against gravity. MRI scans revealed significant multifocal areas of stenosis of the left vertebral artery. There is moderate stenosis of the right proximal internal carotid artery, and mild stenosis of the proximal left ICA. Patient is already on double antiplatelet therapy. Objective - Constitutional Vitals: Temp Pulse Resp BP Pulse Ox 97.8 F 71 16 128/72 97 12/18/18 11:42 12/18/18 11:42 12/18/18 11:42 12/18/18 11:42 12/18/18 09:41 Exam: I have personally performed a [id number] assessment of the patient and have reviewed the PA/FACTORY WORKER note. My impressions are as follows: Patient was seen and examined independently. I agree with the documentation of the neurologic examination as outlined above. Results - Laboratory Findings CBC and BMP: 12/16/18 13:30 12/18/18 04:09 Abnormal lab findings: Abnormal lab results Plt Count 121 K/mcL (140-400) L 12/16/18 13:30 Sodium 133 mEq/L (136-145) L 12/16/18 13:55 Chloride 108 mEq/L (98-107) H 12/18/18 04:09 Carbon Dioxide 21 mEq/L (23-29) L 12/18/18 04:09 BUN 33 mg/dL (8-23) H 12/18/18 04:09 1.64 mg/dL (0.60-1.20) H 12/18/18 04:09 Est GFR ( Amer) 37 (> 60) L 12/18/18 04:09 Est GFR (Non-Af Amer) 31 (> 60) L 12/18/18 04:09
--- NOTE | 2018-12-18 09:32 | Event Note ---
Date of Encounter: 12/18/18 Time of Encounter: 09:30 - Cardiology Event Note Personally reviewed Echo images. LV systolic function is normal without wall motion when visualized with Definity. Consultation cancelled.
--- NOTE | 2018-12-18 12:22 | Internal Med Progress Note ---
Hospitalist Progress Note - Encounter Date of Encounter: 12/18/18 Time of Encounter: 09:00 - Subjective Interval History: Patient feels right leg weakness has improved. Come lift right leg which she cannot previously. Denies arm weakness or slurred speech or facial drop. Vitals are stable. - Exam Vitals: Temp Pulse Resp BP Pulse Ox 97.8 F 71 16 128/72 97 12/18/18 11:42 12/18/18 11:42 12/18/18 11:42 12/18/18 11:42 12/18/18 09:41 Exam: Pt is AAO x 3, in NAD HEENT: NC/AT, PERRL Neck: Supple, no JVD, no LAD Lungs: CTA b/l Heart: S1S2, RRR Abd: Soft, nontender, BS present Ext: ROM wnl, no pedal edema Neuro: Right LE motor 4/5, CN II-XII generally intact. - Assessment and Plan (1) HTN (hypertension) Current Visit: Yes Status: Acute Assessment and Plan: Relatively stable slightly on the higher end Hold home lisinopril for now given renal function and for permissive hypertension. (2) Right leg weakness Current Visit: Yes Status: Acute Assessment and Plan: MRI shows left frontal lobe acute CVA and multiple old CVA. - Neurology consult appreciated. - Continue aspirin, Plavix, and atorvastatin - Continue telemetric monitoring to rule out occult A. fib - TTE/KATRINA has been done, which shows unremarkable, specifically no PFO, no thrombosis. - Carotid Doppler and neck MRI shows bilateral carotid stenosis. Per Doppler, bilateral 40-59% stenosis. Patient also has vertebral artery stenosis. Will continue aspirin and Plavix and statin. Further management per neurology recommendation. - Continue PTOT. (3) PVD (peripheral vascular disease) Current Visit: Yes Status: Acute (4) Seizures Current Visit: Yes Status: Acute Assessment and Plan: Continue home medication Keppra 250mg po bid. (5) Acute kidney injury superimposed on CKD Current Visit: Yes Status: Acute Assessment and Plan: Patient with some decreased appetite over the past few days We will keep on gentle IV fluids, closely monitor renal function, avoid nephrotoxic medications. (6) DVT prophylaxis Current Visit: Yes Status: Acute Assessment and Plan: heparin sc - Time Spent with Patient Total time spent is greater than 50% in coordination of care (as documented) at patient's floor/unit and/or counseling patient: 30 minutes 25 - 35 minutes Plan of Care Discussed with: patient Internal Medicine: Result - Labs CBC & Chem 7: 12/16/18 13:30 12/18/18 04:09 Labs: BMP 12/18/18 04:09 Sodium 137 Potassium 4.3 Chloride 108 H Carbon Dioxide 21 L BUN 33 H Creatinine 1.64 H Glucose 78 Calcium 10.0 - Impressions Impressions Head MRA 12/17/18 17:58 IMPRESSION: 1. Severe A2 segment stenosis of the left anterior cerebral artery. 2. Moderate A3 segment stenosis of the right anterior cerebral artery. 3. No significant posterior intracranial circulation stenosis. D/ / Tee Robles / Tee Robles Interpreting Provider: Tee Robles Neck MRA 12/17/18 17:59 IMPRESSION: 1. Motion limited evaluation. 2. Severe multifocal stenosis of the left vertebral artery. 3. Bilateral proximal internal carotid artery stenosis, moderate on the right and mild on the left at the exact degree of stenosis difficult to measure due to motion artifact. 4. Moderate stenosis of the distal right common carotid artery. D/ / Tee Robles / Tee Robles Interpreting Provider: Tee Robles Consult Discharge Plan - Plan Referrals: NONE,PCP [Primary Care Provider] - (1) HTN (hypertension) Qualifiers: Hypertension type: essential hypertension Qualified Code(s): I10 - Essential (primary) hypertension
[2018-12-18] MEDS: Ringers Solution, Lactated 1,000 ML IVC SCH ×2 (13:47→14:07)
[2018-12-19] MEDS: Ringers Solution, Lactated 1,000 ML IVC SCH (04:16)
[2018-12-19 04:38] LABS: Basophils % 0.6 %; Eosinophils # 0.1 K/mcL (0.0-0.6); Eosinophils % 2.9 %; Hematocrit 31.6 % (35.3-44.9); Hemoglobin 10.6 g/dL (11.5-15.4); Immature Granulocytes % 0.2 % (0-4); Lymphocytes # 1.8 K/mcL (0.6-4.6); Lymphocytes % 38.3 %; Mean Corpuscular HGB Conc 33.5 g/dL (31.6-35.5); Mean Corpuscular Hemoglobin 32.4 pg (28.0-33.3); Mean Corpuscular Volume 96.6 fL (83.0-100.0); Mean Platelet Volume 10.7 fL (9.4-12.4); Monocytes # 0.4 K/mcL (0.0-1.3); Monocytes % 8.5 %; Neutrophils # 2.4 K/mcL (1.6-8.9); Platelet Count 117 K/mcL (140-400); Red Blood Count 3.27 M/mcL (3.82-4.97); Red Cell Distribution Width 13.7 % (11.5-14.5); Segmented Neutrophils % 49.5 %
[2018-12-19 04:56] LABS: Calcium 9.3 mg/dL (8.6-10.3); Potassium 4.5 mEq/L (3.5-5.1)
[2018-12-19] MEDS: *HR* Heparin 5,000 UNIT/ML VIAL SQ SCH ×2 (05:52→12:11)
[2018-12-19] MEDS: levETIRAcetam 250 MG TABLET PO SCH (08:40)
[2018-12-19] MEDS: Aspirin Enteric Coated 81 MG Tablet PO SCH (08:41)
[2018-12-19] MEDS: Nystatin POWDER 30 GM BOTTLE TP SCH (08:41)
[2018-12-19] MEDS ORDERED: amLODIPine 5 MG TABLET PO SCH (09:00)
[2018-12-19] MEDS ORDERED: Lisinopril 20 MG TABLET PO SCH ×2 (09:00)
[2018-12-19 10:36] VITALS: BP 156/76
--- NOTE | 2018-12-19 11:02 | Discharge Summary ---
- NOTES TO OUTPATIENT PROVIDER Notes to Outpatient Provider: 1. Pt has b/l carotid stenosis 40-59%, on plavix, ASA, and statin. Please repeat duplex carotid in 6 month to monitor progression. Date of Encounter: 12/19/18 Time of Encounter: 09:00 - Discharge Diagnosis (1) HTN (hypertension) Priority: Secondary Status: Acute Qualifiers: Hypertension type: essential hypertension Qualified Code(s): I10 - Essential (primary) hypertension (2) Right leg weakness Priority: Primary Status: Acute (3) PVD (peripheral vascular disease) Priority: Secondary Status: Acute (4) Seizures Priority: Secondary Status: Acute (5) Acute kidney injury superimposed on CKD Priority: Secondary Status: Acute (6) DVT prophylaxis Priority: Secondary Status: Acute (7) Acute CVA (cerebrovascular accident) Priority: Primary Status: Acute (8) Carotid stenosis Priority: Secondary Status: Acute Qualifiers: Laterality: bilateral Qualified Code(s): I65.23 - Occlusion and stenosis of bilateral carotid arteries Hospital course: Ms. Paige is a 73 year old female present to emergency room for right leg weakness. MRI has been done, which shows left frontal lobe infarct. Neurology consult saw patient. Patient had KATRINA, which shows no thrombosis. Patient has no A. fib. Patient has bilateral carotid stenosis 40-59%. Will continue Plavix, aspirin, and atorvastatin. Will increase atorvastatin dose to 40 mg daily upon discharge. Patient with DC to rehabilitation center. I have seen and examined this patient today. Patient feels right leg weakness has improved. No further neuro deficit. I have explained to patient that she has bilateral carotid stenosis, no indication for surgery at this point but need close follow-up as outpatient. Patient shows undertanding. Will DC patient to rehabilitation center for further PTOT. Continue follow-up with PCP as outpatient. Discharge discussed with: patient - Time Spent with Patient Total time spent providing and/or coordinating discharge services: 40 minutes Time spent: Greater than 30 minutes - Discharge Medications Prescriptions: Continued Aspirin Enteric Coated [Aspirin EC] 81 mg PO DAILY Lisinopril [Zestril] 20 mg PO DAILY Levothyroxine Sodium 88 mcg PO QAM levETIRAcetam [Keppra] 250 mg PO BID Ferrous Sulfate 325 mg PO DAILY Clopidogrel [Plavix] 75 mg PO DAILY Citalopram Hydrobromide [Citalopram HBr] 20 mg PO DAILY Amlodipine Besylate 5 mg PO DAILY Atorvastatin Calcium [Lipitor] 40 mg PO QPM 30 Days #60 tablet Discontinued Atorvastatin Calcium [Lipitor] 20 mg PO QPM Metoprolol [Lopressor] 25 mg PO BID PRN PRN Reason: SEE NOTES Home Medications: Amlodipine Besylate 5 mg PO DAILY 12/16/18 [History] Aspirin Enteric Coated [Aspirin EC] 81 mg PO DAILY 12/16/18 [History] Citalopram Hydrobromide [Citalopram HBr] 20 mg PO DAILY 12/16/18 [History] Clopidogrel [Plavix] 75 mg PO DAILY 12/16/18 [History] Ferrous Sulfate 325 mg PO DAILY 12/16/18 [History] Levothyroxine Sodium 88 mcg PO QAM 12/16/18 [History] Lisinopril [Zestril] 20 mg PO DAILY 12/16/18 [History] levETIRAcetam [Keppra] 250 mg PO BID 12/16/18 [History] Atorvastatin Calcium [Lipitor] 40 mg PO QPM 30 Days #60 tablet 12/19/18 [Rx] Allergies/Adverse Reactions: Allergy/AdvReac Type Severity Reaction Status Date / Time No Known Allergies Allergy Verified 11/20/18 11:42 Date of admission: 12/17/18 15:32 Primary care physician: PCP NONE Consults: 12/16/18 16:09 Consult to Pain Management [CONS] Stat Consulting Provider: Shaun Mgeliud Paul Denise Reason for Consult: left leg weakness Time Notified: 16:10 Call Completed: Yes 12/16/18 16:32 Consult to Orthopedic Surgery [CONS] Stat Consulting Provider: Quintin Funes Jr Reason for Consult: left leg weakness with spinal stenosis on MRI Time Notified: 16:34 Call Completed: Yes 12/16/18 17:47 Consult to Occupational Therapy [CONS] Routine Comment: Evaluate, develop and implement POC Reason for Consult: Leg weakness Does patient have active BEDREST order?: No Is patient medically & hemodynamically stable?: Yes Consult to Physical Therapy [CONS] Routine Comment: Evaluate, develop and implement POC Reason for Consult: Leg weakness Does patient have active BEDREST order?: No Is patient medically & hemodynamically stable?: Yes 12/16/18 23:52 Consult to Selling Manager [CONS] Routine Reason for SW Consult: From home, will likely require placement 12/17/18 07:11 Consult to Neurology [CONS] Routine Consulting Provider: [facility] Reason for Consult: acute stroke Call Completed: No 12/17/18 16:49 Consult to Cardiology [CONS] Routine Comment: Consulting Provider: Cardiology [facility] Reason for Consult: abnormal echo, stroke Call Completed: Yes Discharging clinician: Luis Manuel Saab Anticipated date of discharge: 12/19/18 - Constitutional Vitals: Temp Pulse Resp BP Pulse Ox 97.8 F 62 14 156/76 96 12/19/18 10:33 12/19/18 10:33 12/19/18 10:33 12/19/18 10:33 12/19/18 10:33 General appearance: Present: A&O X 3 Exam: Pt is AAO x 3, in NAD HEENT: NC/AT, PERRL Neck: Supple, no JVD, no LAD Lungs: CTA b/l Heart: S1S2, RRR Abd: Soft, nontender, BS present Ext: ROM wnl, no pedal edema Neuro: Right LE motor 4/5, no other neuro deficits. - Patient Status Disposition: Transfer Inpatient Rehab Fac Condition: Fair Functional capacity at discharge: uses cane/walker Overall status at discharge: patient is progressing back to baseline - Discharge Instructions Follow Up With: NONE,PCP [Primary Care Provider] - - Diet and Activity Activity: as per physical therapy Diet: low fat, low cholesterol, low salt diet
--- NOTE | 2018-12-19 11:15 | Physician Discharge Referral ---
ExtendedCare Referral Info Transfer To: [facility] Provider in Charge after Transfer: PCP, Other (F physician) - Diagnosis (1) HTN (hypertension) Status: Acute (2) Right leg weakness Status: Acute (3) PVD (peripheral vascular disease) Status: Acute (4) Seizures Status: Acute (5) Acute kidney injury superimposed on CKD Status: Acute (6) DVT prophylaxis Status: Acute (7) Acute CVA (cerebrovascular accident) Status: Acute (8) Carotid stenosis Status: Acute - Transfer Medications Prescriptions: Atorvastatin Calcium [Lipitor] 40 mg PO QPM 30 Days #60 tablet Home Medications: Amlodipine Besylate 5 mg PO DAILY 12/16/18 [History] Aspirin Enteric Coated [Aspirin EC] 81 mg PO DAILY 12/16/18 [History] Citalopram Hydrobromide [Citalopram HBr] 20 mg PO DAILY 12/16/18 [History] Clopidogrel [Plavix] 75 mg PO DAILY 12/16/18 [History] Ferrous Sulfate 325 mg PO DAILY 12/16/18 [History] Levothyroxine Sodium 88 mcg PO QAM 12/16/18 [History] Lisinopril [Zestril] 20 mg PO DAILY 12/16/18 [History] levETIRAcetam [Keppra] 250 mg PO BID 12/16/18 [History] Atorvastatin Calcium [Lipitor] 40 mg PO QPM 30 Days #60 tablet 12/19/18 [Rx] Allergies/Adverse Reactions: Allergy/AdvReac Type Severity Reaction Status Date / Time No Known Allergies Allergy Verified 11/20/18 11:42 - Respiratory Orders Smoking Cessation: Smoking cessation has been advised. For more information, call the [place] Tobacco Quit Line at 6-100-VEWNNOW. - Advance Directives Code Status: Full Code - Rehabiliation Orders Rehab Orders: Evaluation for Physical Therapy, Evaluation for Occupational Therapy - Diet Orders Cardiac CERTIFICATION: I certify that the transfer of the above named patient to an Extended Care Facility is necessary for the continuing treatment of the diagnosis listed. The above information is true and accurate reflection of patient's current condition. Confidential - Redisclosure prohibited without a patient's written consent.
--- NOTE | 2018-12-19 11:35 | Neurology Progress Note ---
<Margarito Arteaga - Last Filed: 12/19/18 11:41> Date of Encounter: 12/19/18 Time of Encounter: 11:32 Assessment and Plan (1) Right leg weakness Status: Acute (2) Acute CVA (cerebrovascular accident) Status: Acute Diagnosis of ischemic stroke in the left frontal lobe Initially, there was some concern as to whether or not there was an embolic source due to distribution of left SHANIKA and MCA territory TTE and KATRINA negative for embolic source No history of A. fib, not on KIN Briefly, she presented with right leg weakness and or dysfunction 3 days MRI of the brain confirmed acute ischemic infarct in left frontal lobe; again ap pears to be SHANIKA and MCA territory Currently taking tapped with aspirin and Plavix, continue, continue statin Discussed aggressive risk factor modification, and medication compliance She will need follow-up with neurology within 7-10 days of discharge We will reevaluate your request Okay to DC from neurology's perspective at the discretion of the primary team Per primary team discussion patient is a DVT to swing bed for rehabilitation Subjective Principal diagnosis: acute CVA Interval history: Patient seen in follow-up today for acute CVA. Today discussed again aggressive risk factor modification as well as medication compliance. Further, I discussed results of neuroimaging, TTE and KATRINA. The patient denies any further questions at this time. Clinically, she remains stable without any new neurological deficits overnight. Objective - Constitutional Vitals: Temp Pulse Resp BP Pulse Ox 97.8 F 62 14 156/76 96 12/19/18 10:33 12/19/18 10:33 12/19/18 10:33 12/19/18 10:33 12/19/18 10:33 Exam: Examination: General Examination: *CONSTITUTIONAL: Alert and oriented x3, no acute distress *GENERAL APPEARANCE OF PATIENT elderly female *EYES: pupils equal, round, reactive to light and accommodation, conjunctiva clear *CARDIOVASCULAR no peripheral edema, distal temperature normal, dorsalis pedis pulses normal. see vital signs Musculoskeletal: *GAIT AND STATION deferred, unable to stand d/t right leg weakness *ASSESSMENT OF MUSCLE STRENGTH IN THE UPPER AND LOWER EXTREMITIES right deltoid, bicep, tricep, wrapper stripper strength 5/5, right hip flexors ,anterior tibialis, dorsoflexion of the foot 4/5, RLE drift persists but continues to improve, left deltoid, bicep, tricep, wrapper stripper strength, hip flexors ,anterior tibialis, dorsoflexion of the foot 5/5 *MUSCLE TONE IN THE UPPER AND LOWER EXTREMITIES normal. No abnormal movements, fasciculations or atrophy identified. Neurological: *ORIENTATION A and O 4 *RECURRENT AND REMOTE MEMORY intact *ATTENTION AND CONCENTRATION are normal *LANGUAGE FUNCTION no significant aphasia or dysarthia was noted. *FUND OF KNOWLEDGE aware of current events, past history, vocabulary *MENTAL attention span and concentration normal. *CN II optic fundi were normal, no papilledema noted. *CN III,IV, PERRLA extraocular eye movements were full, no nystagmus and no ptosis noted. *CN V shows normal sensation and jaw opens symmetrically. *CN VII shows normal facial movement symmetrically, upper and lower bilaterally. *CN VIII shows no significant hearing loss on exam *CN IX,,X palate elevated symmetrically *CN XI normal strength in the sternocleidomastoid muscles, symmetrical shoulder shrugging. *CN XII tongue protruded in the midline, with normal strength and movement. *SENSORY EXAMINATION light touch intact *REFLEXES: deep tendon reflexes were normal and symmetrical , grade 2/4 diffusely, no pathological reflexes were noted. *CEREBELLAR TESTING normal finger to nose, heel/knee/martinez *PAIN LEVEL 0 Results - Laboratory Findings CBC and BMP: 12/19/18 04:05 12/19/18 04:05 Abnormal lab findings: Abnormal lab results RBC 3.27 M/mcL (3.82-4.97) L 12/19/18 04:05 Hgb 10.6 g/dL (11.5-15.4) L D 12/19/18 04:05 Hct 31.6 % (35.3-44.9) L 12/19/18 04:05 Plt Count 117 K/mcL (140-400) L 12/19/18 04:05 Sodium 133 mEq/L (136-145) L 12/16/18 13:55 Chloride 112 mEq/L (98-107) H 12/19/18 04:05 Carbon Dioxide 21 mEq/L (23-29) L 12/19/18 04:05 BUN 25 mg/dL (8-23) H 12/19/18 04:05 1.36 mg/dL (0.60-1.20) H 12/19/18 04:05 Est GFR ( Amer) 46 (> 60) L 12/19/18 04:05 Est GFR (Non-Af Amer) 38 (> 60) L 12/19/18 04:05 Consult Discharge Plan - Plan Instructions: Ischemic Stroke (DC) Referrals: NONE,PCP [Primary Care Provider] - Prescriptions: Atorvastatin Calcium [Lipitor] 40 mg PO QPM 30 Days #60 tablet <Jason Ram Selwyn - Last Filed: 12/20/18 07:18> Date of Encounter: 12/20/18 Assessment and Plan (1) Right leg weakness Status: Acute (2) Acute CVA (cerebrovascular accident) Status: Acute Patient was not seen by me on this date. I agree with the assessment and plan as stated above. I intend to follow up with her after discharge. Subjective Interval history: The patient was not seen by me on this date. Objective - Constitutional Vitals: Temp Pulse Resp BP Pulse Ox 97.8 F 62 14 156/76 96 12/19/18 10:33 12/19/18 10:33 12/19/18 10:33 12/19/18 10:33 12/19/18 10:33 Results - Laboratory Findings CBC and BMP: 12/19/18 04:05 12/19/18 04:05 Abnormal lab findings: Abnormal lab results RBC 3.27 M/mcL (3.82-4.97) L 12/19/18 04:05 Hgb 10.6 g/dL (11.5-15.4) L D 12/19/18 04:05 Hct 31.6 % (35.3-44.9) L 12/19/18 04:05 Plt Count 117 K/mcL (140-400) L 12/19/18 04:05 Sodium 133 mEq/L (136-145) L 12/16/18 13:55 Chloride 112 mEq/L (98-107) H 12/19/18 04:05 Carbon Dioxide 21 mEq/L (23-29) L 12/19/18 04:05 BUN 25 mg/dL (8-23) H 12/19/18 04:05 1.36 mg/dL (0.60-1.20) H 12/19/18 04:05 Est GFR ( Amer) 46 (> 60) L 12/19/18 04:05 Est GFR (Non-Af Amer) 38 (> 60) L 12/19/18 04:05
== END 2018-12-19 16:36 | DRG 65 ==
LOC: 2ANU 11:54 → EMEROOARM 11:54 → SUATTDRO 16:45 → 2NENU 20:05
PROVIDERS: ADMIT Internal Medicine; ATTEND Internal Medicine

== ENCOUNTER 2020-01-20 10:51 | Inpatient (IN) ==
[2020-01-20] MEDS ORDERED: Nitroglycerin 0.4 MG TAB.SUBL SL PRN (11:25)
[2020-01-20] MEDS ORDERED: Aspirin 325 MG TABLET PO ONE (11:25)
[2020-01-20 11:36] LABS: Basophils % 0.2 %; Eosinophils # 0.1 K/mcL (0.0-0.6); Eosinophils % 0.5 %; Hematocrit 38.2 % (35.3-44.9); Hemoglobin 12.4 g/dL (11.5-15.4); Immature Granulocytes % 0.3 % (0-4); Lymphocytes # 1.3 K/mcL (0.6-4.6); Lymphocytes % 12.6 %; Mean Corpuscular HGB Conc 32.5 g/dL (31.6-35.5); Mean Corpuscular Hemoglobin 30.5 pg (28.0-33.3); Mean Corpuscular Volume 94.1 fL (83.0-100.0); Mean Platelet Volume 11.1 fL (9.4-12.4); Monocytes # 0.7 K/mcL (0.0-1.3); Monocytes % 6.9 %; Neutrophils # 8.3 K/mcL (1.6-8.9); Platelet Count 180 K/mcL (140-400); Red Blood Count 4.06 M/mcL (3.82-4.97); Red Cell Distribution Width 13.6 % (11.5-14.5); Segmented Neutrophils % 79.5 %; White Blood Count 10.4 K/mcL (4.3-11.1)
[2020-01-20 11:45] LABS: Prothrombin Time 11.6 Seconds (9.4-12.1)
[2020-01-20 12:03] LABS: BUN/Creatinine Ratio 17 (6-26); Blood Urea Nitrogen 18 mg/dL (8-23); Carbon Dioxide 22 mEq/L (23-29); Chloride 102 mEq/L (98-107); Glucose 112 mg/dL (70-105); Osmolality,Calculated 279 (280-300); Potassium 4.3 mEq/L (3.5-5.1); Sodium 133 mEq/L (136-145); Troponin I 26.12 ng/mL (< 0.04); eGFR For African Americans > 60 (> 60); eGFR For Non-African Americans 52 (> 60)
[2020-01-20] MEDS ORDERED: *HR* Heparin 5,000 UNIT/ML VIAL IVP ONE (12:04)
[2020-01-20] MEDS ORDERED: *HR* Heparin 5,000 UNIT/ML VIAL IVP PRN ×2 (12:04)
[2020-01-20 12:12] LABS: Heparin anti-factor XA UFH 0.05 IU/mL (0.30-0.70)
[2020-01-20] MEDS ORDERED: Heparin 25,000 UNIT/250 ML D5W 25,000 UNIT/250 ML IV.SOLN IVC SCH (12:15)
[2020-01-20] MEDS ORDERED: 0.9 % Sodium Chloride 2,000 ML ONE (13:48)
[2020-01-20] MEDS ORDERED: Nitroglycerin 1,000 MCG/10 ML VIAL IV ONE (13:48)
[2020-01-20] MEDS ORDERED: Heparin 1,000 UNITS/500 mL 500 ML ONE (13:48)
[2020-01-20] MEDS ORDERED: *HR* Heparin 10,000 UNIT/10 ML VIAL ONE (13:48)
[2020-01-20] MEDS ORDERED: ISOVUE-370 200 ML INFUS..BTL ONE (13:48)
[2020-01-20] MEDS ORDERED: *HR* Midazolam HCl 2 MG/2 ML VIAL ONE (13:55)
[2020-01-20] MEDS ORDERED: *HR* FentaNYL (PF) 100 MCG/2 ML VIAL ONE (13:55)
[2020-01-20] MEDS ORDERED: *HR* Promethazine 25 MG/ML VIAL IVP PRN (14:17)
[2020-01-20] MEDS ORDERED: 0.9 % Sodium Chloride 500 ML IVC ONE (14:31)
[2020-01-20] MEDS ORDERED: *HR* Bivalirudin 250 MG VIAL IVC ONE (14:48)
[2020-01-20] MEDS ORDERED: 0.9 % Sodium Chloride 1,000 ML IVC SCH (15:45)
[2020-01-20] MEDS: *HR* OxyCODONE Immed Rel 5 MG TABLET PO PRN ×2 (17:16→19:55)
[2020-01-20] MEDS ORDERED: *HR* Atropine Sulfate 1 MG/10 ML SYRINGE ONE (18:21)
[2020-01-20] MEDS ORDERED: Perflutren Lipid Microsphere 1.3 ML in 0.9 % Sodium Chloride 8.7 ML IVP ONE (21:20)
[2020-01-20] MEDS: Acetaminophen 325 MG TABLET PO PRN (22:12)
[2020-01-20] MEDS: *HR* Heparin 5,000 UNIT/ML VIAL SQ SCH (22:13)
[2020-01-21] MEDS: *HR* Heparin 5,000 UNIT/ML VIAL SQ SCH ×2 (04:42→13:29)
[2020-01-21 05:26] LABS: Hematocrit 34.9 % (35.3-44.9); Hemoglobin 11.3 g/dL (11.5-15.4); Mean Corpuscular HGB Conc 32.4 g/dL (31.6-35.5); Mean Corpuscular Hemoglobin 30.9 pg (28.0-33.3); Mean Corpuscular Volume 95.4 fL (83.0-100.0); Mean Platelet Volume 11.7 fL (9.4-12.4); Platelet Count 170 K/mcL (140-400); Red Blood Count 3.66 M/mcL (3.82-4.97); Red Cell Distribution Width 13.7 % (11.5-14.5); White Blood Count 10.8 K/mcL (4.3-11.1)
[2020-01-21 05:44] LABS: Calcium 9.7 mg/dL (8.6-10.3); Chol/HDL Ratio 3.9 (0-4.9); Potassium 4.3 mEq/L (3.5-5.1)
[2020-01-21] MEDS ORDERED: Perflutren Lipid Microsphere 1.3 ML in 0.9 % Sodium Chloride 8.7 ML IVP ONE (07:16)
[2020-01-21] MEDS ORDERED: Aspirin 81 MG TAB.CHEW PO SCH (09:00)
[2020-01-21] MEDS ORDERED: Furosemide 40 MG/4 ML VIAL IVP SCH ×2 (10:00→17:00)
[2020-01-21] MEDS: Ipratropium Neb 0.5 MG NEBULIZER IH SCH ×2 (14:34→22:28)
[2020-01-21] MEDS ORDERED: Haloperidol Lactate 5 MG/ML VIAL IVP ONE (15:17)
[2020-01-21] MEDS ORDERED: Albuterol 2.5 MG/3 ML NEBULIZER IH SCH (16:00)
[2020-01-21] MEDS ORDERED: *HR* Heparin 5,000 UNIT/ML VIAL IVP PRN ×2 (16:38)
[2020-01-21] MEDS ORDERED: *HR* Heparin 5,000 UNIT/ML VIAL IVP ONE (16:38)
[2020-01-21 19:14] LABS: Hematocrit 34.1 % (35.3-44.9); Hemoglobin 10.9 g/dL (11.5-15.4); Mean Corpuscular Hemoglobin 30.9 pg (28.0-33.3); Mean Corpuscular Volume 96.6 fL (83.0-100.0); Mean Platelet Volume 11.6 fL (9.4-12.4); Platelet Count 144 K/mcL (140-400); Red Blood Count 3.53 M/mcL (3.82-4.97); Red Cell Distribution Width 13.7 % (11.5-14.5); White Blood Count 10.4 K/mcL (4.3-11.1)
[2020-01-21 19:31] LABS: Heparin anti-factor XA UFH < 0.04 IU/mL (0.30-0.70); INR 1.1
[2020-01-21] MEDS: levETIRAcetam 250 MG TABLET PO SCH (20:14)
[2020-01-21] MEDS: *HR* OxyCODONE Immed Rel 5 MG TABLET PO PRN (20:15)
[2020-01-21] MEDS: Heparin 25,000 UNIT/250 ML D5W 25,000 UNIT/250 ML IV.SOLN IVC SCH (20:17)
[2020-01-21] MEDS: Acetaminophen 325 MG TABLET PO PRN (20:23)
[2020-01-21 21:31] LABS: Bilirubin,Urine Negative (Negative); Blood,Urine Large (Negative); Clarity,Urine Turbid (Clear); Color,Urine Yellow (Yellow); Glucose,Urine (UA) Normal (Normal); Ketones,Urine Negative (Negative); Leukocyte Esterase,Urine Large (Negative); Nitrite,Urine Negative (Negative); Protein,Urine Negative (Neg-Trace); Specific Gravity,Urine 1.013 (1.010-1.025); Urobilinogen,Urine Normal (Normal)
[2020-01-21 22:45] LABS: Squamous Epithelial Cell,Urine Moderate per lpf (None-Few); WBC,Urine TNTC per hpf (0-3)
[2020-01-21 22:46] LABS: Amorphous Sediment,Urine Moderate per hpf (None-Few); Bacteria,Urine Moderate per hpf (None-Few)
[2020-01-22] MEDS: Ipratropium Neb 0.5 MG NEBULIZER IH SCH ×4 (03:19→23:21)
[2020-01-22 04:36] LABS: Hematocrit 31.8 % (35.3-44.9); Hemoglobin 10.1 g/dL (11.5-15.4); Mean Corpuscular HGB Conc 31.8 g/dL (31.6-35.5); Mean Corpuscular Hemoglobin 30.6 pg (28.0-33.3); Mean Corpuscular Volume 96.4 fL (83.0-100.0); Mean Platelet Volume 11.6 fL (9.4-12.4); Platelet Count 131 K/mcL (140-400); Red Cell Distribution Width 13.8 % (11.5-14.5); White Blood Count 7.4 K/mcL (4.3-11.1)
[2020-01-22 04:54] LABS: Potassium 3.5 mEq/L (3.5-5.1)
[2020-01-22] MEDS: levETIRAcetam 250 MG TABLET PO SCH ×2 (08:24→19:34)
[2020-01-22] MEDS: Cyanocobalamin (B-12) 1,000 MCG TABLET PO SCH (08:24)
[2020-01-22] MEDS: Aspirin Enteric Coated 81 MG Tablet PO SCH (08:24)
[2020-01-22] MEDS: Cholecalciferol (D-3) 1,000 UNIT (25MCG) TABLET PO SCH (08:25)
[2020-01-22] MEDS ORDERED: Furosemide 40 MG/4 ML VIAL IVP SCH (09:00)
[2020-01-22] MEDS: cefTRIAXone 1,000 MG in Water for inj. (sterile) 10 ML IVP SCH (09:34)
[2020-01-22] MEDS: *HR* OxyCODONE Immed Rel 5 MG TABLET PO PRN (09:38)
[2020-01-22] MEDS: Melatonin 3 MG TABLET PO SCH (19:35)
[2020-01-22] MEDS: QUEtiapine Fumarate 25 MG TABLET PO SCH (19:35)
[2020-01-22] MEDS: Metoprolol XL (24 HR) Succ 25 MG TAB.ER.24H PO SCH (19:35)
[2020-01-22] MEDS: Acetaminophen 325 MG TABLET PO PRN (19:40)
[2020-01-22] MEDS: Heparin 25,000 UNIT/250 ML D5W 25,000 UNIT/250 ML IV.SOLN IVC SCH (23:33)
[2020-01-23 01:33] LABS: Hematocrit 28.3 % (35.3-44.9); Hemoglobin 9.1 g/dL (11.5-15.4); Immature Platelets 6.4 % (1.1-6.1); Mean Corpuscular HGB Conc 32.2 g/dL (31.6-35.5); Mean Corpuscular Volume 96.3 fL (83.0-100.0); Mean Platelet Volume 11.7 fL (9.4-12.4); Red Blood Count 2.94 M/mcL (3.82-4.97); Red Cell Distribution Width 13.7 % (11.5-14.5); White Blood Count 7.4 K/mcL (4.3-11.1)
[2020-01-23 01:44] LABS: Potassium 3.7 mEq/L (3.5-5.1)
[2020-01-23] MEDS: *HR* OxyCODONE Immed Rel 5 MG TABLET PO PRN ×4 (01:58→19:58)
[2020-01-23] MEDS: Ipratropium Neb 0.5 MG NEBULIZER IH SCH ×4 (03:48→22:17)
[2020-01-23] MEDS: Metoprolol XL (24 HR) Succ 25 MG TAB.ER.24H PO SCH ×2 (08:36→19:58)
[2020-01-23] MEDS: Cholecalciferol (D-3) 1,000 UNIT (25MCG) TABLET PO SCH (08:36)
[2020-01-23] MEDS: Aspirin Enteric Coated 81 MG Tablet PO SCH (08:36)
[2020-01-23] MEDS: Cyanocobalamin (B-12) 1,000 MCG TABLET PO SCH (08:36)
[2020-01-23] MEDS: levETIRAcetam 250 MG TABLET PO SCH ×2 (08:37→19:58)
[2020-01-23] MEDS: cefTRIAXone 1,000 MG in Water for inj. (sterile) 10 ML IVP SCH (08:37)
[2020-01-23] MEDS ORDERED: *HR* Heparin 10,000 UNIT/10 ML VIAL ONE (12:03)
[2020-01-23] MEDS ORDERED: ISOVUE-370 200 ML INFUS..BTL ONE (12:03)
[2020-01-23] MEDS ORDERED: Heparin 1,000 UNITS/500 mL 500 ML ONE (12:03)
[2020-01-23] MEDS ORDERED: Nitroglycerin 1,000 MCG/10 ML VIAL IV ONE (12:03)
[2020-01-23] MEDS ORDERED: 0.9 % Sodium Chloride 1,000 ML ONE (12:03)
[2020-01-23] MEDS ORDERED: *HR* Midazolam HCl 2 MG/2 ML VIAL ONE (12:55)
[2020-01-23] MEDS ORDERED: *HR* FentaNYL (PF) 100 MCG/2 ML VIAL ONE (12:56)
[2020-01-23] MEDS ORDERED: *HR* Atropine Sulfate 1 MG/10 ML SYRINGE ONE (15:42)
[2020-01-23] MEDS: QUEtiapine Fumarate 25 MG TABLET PO SCH (19:57)
[2020-01-23] MEDS: Acetaminophen 325 MG TABLET PO PRN (19:58)
[2020-01-23] MEDS: Melatonin 3 MG TABLET PO SCH (19:58)
[2020-01-24 01:38] LABS: Hematocrit 27.3 % (35.3-44.9); Hemoglobin 8.7 g/dL (11.5-15.4); Mean Corpuscular HGB Conc 31.9 g/dL (31.6-35.5); Mean Corpuscular Hemoglobin 30.5 pg (28.0-33.3); Mean Corpuscular Volume 95.8 fL (83.0-100.0); Mean Platelet Volume 11.7 fL (9.4-12.4); Platelet Count 153 K/mcL (140-400); Red Blood Count 2.85 M/mcL (3.82-4.97); Red Cell Distribution Width 13.4 % (11.5-14.5)
[2020-01-24 02:01] LABS: Calcium 9.3 mg/dL (8.6-10.3)
[2020-01-24 02:22] LABS: Folate 7.3 ng/mL (3.0-16.0)
[2020-01-24] MEDS: Ipratropium Neb 0.5 MG NEBULIZER IH SCH ×4 (03:18→22:19)
[2020-01-24] MEDS: levETIRAcetam 250 MG TABLET PO SCH ×2 (08:34→20:30)
[2020-01-24] MEDS: Aspirin Enteric Coated 81 MG Tablet PO SCH (08:35)
[2020-01-24] MEDS: Sodium Ferric Gluconat/Sucrose 125 MG in 0.9 % Sodium Chloride 100 ML IVPB SCH (08:35)
[2020-01-24] MEDS: cefTRIAXone 1,000 MG in Water for inj. (sterile) 10 ML IVP SCH (08:35)
[2020-01-24] MEDS: Cholecalciferol (D-3) 1,000 UNIT (25MCG) TABLET PO SCH (08:35)
[2020-01-24] MEDS: Cyanocobalamin (B-12) 1,000 MCG TABLET PO SCH (08:35)
[2020-01-24] MEDS: Metoprolol XL (24 HR) Succ 25 MG TAB.ER.24H PO SCH ×2 (08:35→20:30)
[2020-01-24] MEDS: lisinopriL 5 MG TABLET PO SCH (11:02)
[2020-01-24] MEDS: Spironolactone 25 MG TABLET PO SCH (15:32)
[2020-01-24] MEDS: Melatonin 3 MG TABLET PO SCH (20:29)
[2020-01-24] MEDS: QUEtiapine Fumarate 25 MG TABLET PO SCH (20:29)
[2020-01-25 03:56] LABS: Mean Corpuscular HGB Conc 32.1 g/dL (31.6-35.5); Mean Corpuscular Hemoglobin 30.9 pg (28.0-33.3); Mean Corpuscular Volume 96.2 fL (83.0-100.0); Mean Platelet Volume 11.6 fL (9.4-12.4); Platelet Count 161 K/mcL (140-400); Red Blood Count 2.91 M/mcL (3.82-4.97); Red Cell Distribution Width 13.5 % (11.5-14.5); White Blood Count 5.8 K/mcL (4.3-11.1)
[2020-01-25] MEDS: Ipratropium Neb 0.5 MG NEBULIZER IH SCH ×4 (04:06→22:26)
[2020-01-25 04:12] LABS: Calcium 9.7 mg/dL (8.6-10.3); Potassium 3.9 mEq/L (3.5-5.1)
[2020-01-25] MEDS: Sodium Ferric Gluconat/Sucrose 125 MG in 0.9 % Sodium Chloride 100 ML IVPB SCH (08:54)
[2020-01-25] MEDS: Aspirin Enteric Coated 81 MG Tablet PO SCH (09:04)
[2020-01-25] MEDS: levETIRAcetam 250 MG TABLET PO SCH ×2 (09:04→22:09)
[2020-01-25] MEDS: Spironolactone 25 MG TABLET PO SCH (09:04)
[2020-01-25] MEDS: Sulfamethoxazole/Trimeth DS 1 EACH TABLET PO SCH ×2 (09:04→22:09)
[2020-01-25] MEDS: Cyanocobalamin (B-12) 1,000 MCG TABLET PO SCH (09:05)
[2020-01-25] MEDS: Cholecalciferol (D-3) 1,000 UNIT (25MCG) TABLET PO SCH (09:05)
[2020-01-25] MEDS: lisinopriL 5 MG TABLET PO SCH (09:05)
[2020-01-25] MEDS: Metoprolol XL (24 HR) Succ 25 MG TAB.ER.24H PO SCH ×2 (09:05→22:23)
[2020-01-25] MEDS: QUEtiapine Fumarate 25 MG TABLET PO SCH (22:09)
[2020-01-25] MEDS: Melatonin 3 MG TABLET PO SCH (22:10)
[2020-01-26 01:20] LABS: Hemoglobin 8.4 g/dL (11.5-15.4); Mean Corpuscular HGB Conc 32.3 g/dL (31.6-35.5); Mean Corpuscular Hemoglobin 31.1 pg (28.0-33.3); Mean Corpuscular Volume 96.3 fL (83.0-100.0); Mean Platelet Volume 10.9 fL (9.4-12.4); Platelet Count 169 K/mcL (140-400); Red Cell Distribution Width 13.7 % (11.5-14.5)
[2020-01-26 01:37] LABS: Calcium 9.2 mg/dL (8.6-10.3); Potassium 3.8 mEq/L (3.5-5.1)
[2020-01-26] MEDS: Ipratropium Neb 0.5 MG NEBULIZER IH SCH ×4 (03:39→21:47)
[2020-01-26 08:02] LABS: Hematocrit 27.8 % (35.3-44.9); Hemoglobin 8.9 g/dL (11.5-15.4)
[2020-01-26] MEDS ORDERED: 0.9 % Sodium Chloride 1,000 ML IVC ONE ×2 (09:03→09:21)
[2020-01-26] MEDS: levETIRAcetam 250 MG TABLET PO SCH ×2 (09:10→20:13)
[2020-01-26] MEDS: Metoprolol XL (24 HR) Succ 25 MG TAB.ER.24H PO SCH ×2 (09:11→20:13)
[2020-01-26] MEDS: Sulfamethoxazole/Trimeth DS 1 EACH TABLET PO SCH ×2 (09:11→20:13)
[2020-01-26] MEDS: Aspirin Enteric Coated 81 MG Tablet PO SCH (09:11)
[2020-01-26] MEDS: Spironolactone 25 MG TABLET PO SCH (09:11)
[2020-01-26] MEDS: Cyanocobalamin (B-12) 1,000 MCG TABLET PO SCH (09:11)
[2020-01-26] MEDS: lisinopriL 5 MG TABLET PO SCH (09:11)
[2020-01-26] MEDS: Cholecalciferol (D-3) 1,000 UNIT (25MCG) TABLET PO SCH (09:12)
[2020-01-26] MEDS: Sodium Ferric Gluconat/Sucrose 125 MG in 0.9 % Sodium Chloride 100 ML IVPB SCH (11:42)
[2020-01-26] MEDS: Melatonin 3 MG TABLET PO SCH (20:13)
[2020-01-26] MEDS: QUEtiapine Fumarate 25 MG TABLET PO SCH (20:13)
[2020-01-27] MEDS: Ipratropium Neb 0.5 MG NEBULIZER IH SCH ×3 (03:43→15:53)
[2020-01-27] MEDS: Sulfamethoxazole/Trimeth DS 1 EACH TABLET PO SCH (08:04)
[2020-01-27] MEDS: Cyanocobalamin (B-12) 1,000 MCG TABLET PO SCH (08:04)
[2020-01-27] MEDS: Aspirin Enteric Coated 81 MG Tablet PO SCH (08:04)
[2020-01-27] MEDS: Spironolactone 25 MG TABLET PO SCH (08:04)
[2020-01-27] MEDS: levETIRAcetam 250 MG TABLET PO SCH (08:05)
[2020-01-27] MEDS: Cholecalciferol (D-3) 1,000 UNIT (25MCG) TABLET PO SCH (08:06)
[2020-01-27] MEDS: lisinopriL 5 MG TABLET PO SCH (08:07)
[2020-01-27] MEDS: Metoprolol XL (24 HR) Succ 25 MG TAB.ER.24H PO SCH (08:07)
[2020-01-27] MEDS: Sodium Ferric Gluconat/Sucrose 125 MG in 0.9 % Sodium Chloride 100 ML IVPB SCH (08:07)
[2020-01-27 15:50] VITALS: BP 120/69
== END 2020-01-27 17:58 | DRG 246 ==
LOC: 2ANU 10:51 → EMEROOARM 10:51 → 2ANU 14:00 → 2NNU 14:57 → SUATTDRO 01-21 11:58 → 2ANU 01-24 15:55
PROVIDERS: ADMIT Student in an Organized Health Care Education/Training Program; ATTEND Internal Medicine

== ENCOUNTER 2020-03-29 23:31 | Inpatient (IN) ==
[2020-03-29] MEDS ORDERED: methylPREDNISolone 125 MG/2 ML VIAL IVP ONE (23:54)
[2020-03-29] MEDS ORDERED: 0.9 % Sodium Chloride 1,000 ML IVC ONE (23:59)
[2020-03-30] MEDS ORDERED: Azithromycin 500 MG in 0.9 % Sodium Chloride 250 ML IVPB ONE (01:17)
[2020-03-30] MEDS ORDERED: cefTRIAXone 1,000 MG in Water for inj. (sterile) 10 ML IVP ONE (01:17)
[2020-03-30 01:51] LABS: Basophils % 0.5 %; Eosinophils # 0.2 K/mcL (0.0-0.6); Hematocrit 25.7 % (35.3-44.9); INR 1.1; Immature Granulocytes % 0.5 % (0-4); Lymphocytes # 1.3 K/mcL (0.6-4.6); Lymphocytes % 15.3 %; Mean Corpuscular HGB Conc 31.1 g/dL (31.6-35.5); Mean Corpuscular Hemoglobin 29.4 pg (28.0-33.3); Mean Corpuscular Volume 94.5 fL (83.0-100.0); Mean Platelet Volume 10.5 fL (9.4-12.4); Monocytes # 0.7 K/mcL (0.0-1.3); Monocytes % 7.8 %; Neutrophils # 6.4 K/mcL (1.6-8.9); Platelet Count 207 K/mcL (140-400); Prothrombin Time 12.7 Seconds (9.4-12.1); Red Blood Count 2.72 M/mcL (3.82-4.97); Red Cell Distribution Width 14.6 % (11.5-14.5); Segmented Neutrophils % 73.9 %; White Blood Count 8.7 K/mcL (4.3-11.1)
[2020-03-30 01:54] LABS: Activated Partial Thrombo Time 28.8 Seconds (26.0-36.0)
[2020-03-30 02:15] LABS: Albumin 3.5 g/dL (3.5-5.7); Albumin/Globulin Ratio 1.3 (1.1-2.2); Bilirubin,Direct 0.2 mg/dL (0.0-0.2); Bilirubin,Indirect 0.7 mg/dL (0.0-1.0); Bilirubin,Total 0.9 mg/dL (0.3-1.0); Calcium 9.4 mg/dL (8.6-10.3); Globulin 2.8 g/dL (2.4-3.5); Potassium 4.5 mEq/L (3.5-5.1); Total Protein 6.3 g/dL (6.4-8.9); Troponin I 1.4 ng/mL (< 0.04)
[2020-03-30 03:08] LABS: Adenovirus Not Detected (Not Detect); Coronavirus 229E Not Detected (Not Detect); Coronavirus HKU1 Not Detected (Not Detect); Coronavirus NL63 Not Detected (Not Detect); Coronavirus OC43 Not Detected (Not Detect)
[2020-03-30 03:10] LABS: Bordetella Pertussis Not Detected (Not Detect); Chlamydophila pneumoniae Not Detected (Not Detect); Human Metapneumovirus Not Detected (Not Detect); Human Rhinovirus/Enterovirus Not Detected (Not Detect); Influenza A Subtype 2009 H1 Not Detected (Not Detect); Influenza B Not Detected (Not Detect); Mycoplasma pneumoniae Not Detected (Not Detect); Parainfluenza Virus 1 Not Detected (Not Detect); Parainfluenza Virus 2 Not Detected (Not Detect); Parainfluenza Virus 3 Not Detected (Not Detect); Parainfluenza Virus 4 Not Detected (Not Detect); Respiratory Syncytial Virus Not Detected (Not Detect)
[2020-03-30] MEDS ORDERED: *HR* Rocuronium Bromide 50 MG/5 ML VIAL IVP ONE ×2 (03:44→10:59)
[2020-03-30] MEDS ORDERED: *HR* Etomidate 20 MG/10 ML AMPUL IVP ONE ×2 (03:44→10:59)
[2020-03-30] MEDS ORDERED: Heparin 25,000UNIT/250ML 1/2NS 25,000 UNIT/250 ML IV.SOLN IVC SCH (03:45)
[2020-03-30] MEDS ORDERED: *HR* Heparin 5,000 UNIT/ML VIAL IVP PRN ×2 (03:45)
[2020-03-30] MEDS ORDERED: *HR* Heparin 5,000 UNIT/ML VIAL IVP ONE (03:45)
[2020-03-30 03:58] LABS: ABG Base Excess -9 mEq/L (-2 to 3); ABG HCO3 16 mEq/L (21-27); ABG Oxygen Saturation 98 % (95-98); ABG PCO2 30 mmHg (35-45); ABG PH 7.34 pH Units (7.32-7.45); ABG PO2 107 mmHg (85-104); ABG TCO2 17 mEq/L (20-26); Blood Gas VT 450 cc
[2020-03-30] MEDS: Norepinephrine 4 MG/254 ML IV.SOLN IVC SCH ×2 (03:58→21:41)
[2020-03-30] MEDS: Midazolam HCl 50 MG/100 ML IV.SOLN IVC SCH (04:00)
[2020-03-30] MEDS: FentaNYL (PF) 1,000 MCG/100 ML IV.SOLN IVC SCH ×2 (04:00→20:40)
[2020-03-30] MEDS ORDERED: Naloxone 0.4 MG/ML INJ IVP PRN (04:28)
[2020-03-30] MEDS: Furosemide 40 MG/4 ML VIAL IVP ONE (04:42)
[2020-03-30] MEDS ORDERED: *HR* Midazolam HCl 5 MG/5 ML VIAL IVP ONE ×2 (04:49→10:59)
[2020-03-30] MEDS ORDERED: Artificial Tears SOLN 15 ML BOTTLE BOTH EYES PRN (06:14)
[2020-03-30 06:43] LABS: Hematocrit 26.3 % (35.3-44.9); Hemoglobin 8.3 g/dL (11.5-15.4); Mean Corpuscular HGB Conc 31.6 g/dL (31.6-35.5); Mean Corpuscular Hemoglobin 29.7 pg (28.0-33.3); Mean Corpuscular Volume 94.3 fL (83.0-100.0); Mean Platelet Volume 10.2 fL (9.4-12.4); Platelet Count 266 K/mcL (140-400); Red Blood Count 2.79 M/mcL (3.82-4.97); Red Cell Distribution Width 14.6 % (11.5-14.5); White Blood Count 10.1 K/mcL (4.3-11.1)
[2020-03-30 06:56] LABS: Heparin anti-factor XA UFH 0.43 IU/mL (0.30-0.70)
[2020-03-30 06:57] LABS: INR 1.1; Prothrombin Time 12.6 Seconds (9.4-12.1)
[2020-03-30 07:30] LABS: ABG Base Excess -5 mEq/L (-2 to 3); ABG HCO3 21 mEq/L (21-27); ABG Oxygen Saturation 100 % (95-98); ABG PCO2 43 mmHg (35-45); ABG PO2 395 mmHg (85-104); ABG TCO2 22 mEq/L (20-26); Blood Gas Modality VC+; Blood Gas VT 450 cc
[2020-03-30] MEDS ORDERED: Perflutren Lipid Microsphere 1.3 ML in 0.9 % Sodium Chloride 8.7 ML IVP PRN (07:48)
[2020-03-30] MEDS ORDERED: Doxycycline 100 MG in 0.9 % Sodium Chloride Mini Bag 100 ML IVPB SCH (08:00)
[2020-03-30 08:23] LABS: Troponin I 1.18 ng/mL (< 0.04)
[2020-03-30] MEDS ORDERED: Furosemide 40 MG/4 ML VIAL IVP SCH (09:00)
[2020-03-30] MEDS: Artificial Tears SOLN 15 ML BOTTLE BOTH EYES SCH ×4 (09:02→20:44)
[2020-03-30] MEDS: Chlorhexidine Rinse 15 ML MOUTHWASH MM SCH ×2 (09:02→20:39)
[2020-03-30] MEDS: Furosemide 40 MG/4 ML VIAL IVP SCH ×2 (09:02→17:45)
[2020-03-30] MEDS ORDERED: Aspirin Enteric Coated 81 MG Tablet PO SCH (09:30)
[2020-03-30] MEDS: Aspirin 81 MG TAB.CHEW PO SCH ×2 (10:26→11:32)
[2020-03-30] MEDS ORDERED: Phenylephrine 10 MG in 0.9 % Sodium Chloride 250 ML IVC SCH (11:00)
[2020-03-30 11:24] LABS: Folate 4.7 ng/mL (3.0-16.0)
[2020-03-30] MEDS: Famotidine 20 MG/2 ML VIAL IVP SCH (13:29)
[2020-03-30] MEDS: Phenylephrine 50 MG in 0.9 % Sodium Chloride 250 ML IVC SCH ×2 (13:35→21:41)
[2020-03-30 13:50] LABS: VBG Ionized Calcium 1.22 mmol/L (1.15-1.35)
[2020-03-30 14:31] LABS: Calcium 9.1 mg/dL (8.6-10.3); Magnesium 1.6 mg/dL (1.6-2.6); Phosphorous 4.3 mg/dL (2.7-4.5); Potassium 4.4 mEq/L (3.5-5.1)
[2020-03-30] MEDS: levETIRAcetam 500 MG/5 ML UDC GTUBE SCH (15:19)
[2020-03-30] MEDS: DOXYCYCLINE ORAL SUSPENSION 100 MG/10 ML UDC PO SCH (17:46)
[2020-03-30] MEDS: *HR* Heparin 5,000 UNIT/ML VIAL SQ SCH (17:46)
[2020-03-30] MEDS ORDERED: Famotidine 20 MG/2 ML VIAL IVP SCH (18:00)
[2020-03-30] MEDS ORDERED: levETIRAcetam 250 MG TABLET PO SCH (18:00)
[2020-03-31] MEDS: cefTRIAXone 1,000 MG in 0.9 % Sodium Chloride Mini Bag 100 ML IVPB SCH ×2 (00:14→23:26)
[2020-03-31] MEDS: Artificial Tears SOLN 15 ML BOTTLE BOTH EYES SCH ×7 (00:15→23:26)
[2020-03-31] MEDS ORDERED: Azithromycin 500 MG in 0.9 % Sodium Chloride 250 ML IVPB SCH (01:00)
[2020-03-31 01:24] LABS: Basophils % 0.1 %; Hematocrit 23.7 % (35.3-44.9); Hemoglobin 7.4 g/dL (11.5-15.4); Immature Granulocytes % 0.6 % (0-4); Lymphocytes # 0.9 K/mcL (0.6-4.6); Lymphocytes % 7.4 %; Mean Corpuscular HGB Conc 31.2 g/dL (31.6-35.5); Mean Corpuscular Hemoglobin 29.2 pg (28.0-33.3); Mean Corpuscular Volume 93.7 fL (83.0-100.0); Mean Platelet Volume 10.2 fL (9.4-12.4); Monocytes % 7.9 %; Neutrophils # 10.5 K/mcL (1.6-8.9); Platelet Count 269 K/mcL (140-400); Red Blood Count 2.53 M/mcL (3.82-4.97); Red Cell Distribution Width 14.6 % (11.5-14.5); White Blood Count 12.5 K/mcL (4.3-11.1)
[2020-03-31 01:46] LABS: Albumin 3.3 g/dL (3.5-5.7); Albumin/Globulin Ratio 1.1 (1.1-2.2); Bilirubin,Total 0.5 mg/dL (0.3-1.0); Calcium 9.1 mg/dL (8.6-10.3); Globulin 2.9 g/dL (2.4-3.5); Potassium 4.1 mEq/L (3.5-5.1); Total Protein 6.2 g/dL (6.4-8.9)
[2020-03-31 01:52] LABS: Troponin I 1.48 ng/mL (< 0.04)
[2020-03-31] MEDS: Midazolam HCl 50 MG/100 ML IV.SOLN IVC SCH ×2 (02:05→22:26)
[2020-03-31] MEDS: levETIRAcetam 500 MG/5 ML UDC GTUBE SCH ×2 (03:01→16:04)
[2020-03-31 04:22] LABS: ABG Base Excess -3 mEq/L (-2 to 3); ABG HCO3 21 mEq/L (21-27); ABG Oxygen Saturation 97 % (95-98); ABG PCO2 34 mmHg (35-45); ABG PH 7.41 pH Units (7.32-7.45); ABG PO2 90 mmHg (85-104); ABG TCO2 22 mEq/L (20-26); Blood Gas Modality ASSIST CONTROL; Blood Gas VT 400 cc
[2020-03-31] MEDS: Furosemide 40 MG/4 ML VIAL IVP SCH (05:04)
[2020-03-31] MEDS: *HR* Heparin 5,000 UNIT/ML VIAL SQ SCH ×2 (05:04→17:51)
[2020-03-31] MEDS: DOXYCYCLINE ORAL SUSPENSION 100 MG/10 ML UDC PO SCH ×2 (05:05→17:51)
[2020-03-31] MEDS: Phenylephrine 50 MG in 0.9 % Sodium Chloride 250 ML IVC SCH (05:53)
[2020-03-31] MEDS: Cholecalciferol (D-3) 1,000 UNIT (25MCG) TABLET PO SCH (07:49)
[2020-03-31] MEDS: Chlorhexidine Rinse 15 ML MOUTHWASH MM SCH ×2 (07:49→19:46)
[2020-03-31] MEDS: Aspirin 81 MG TAB.CHEW PO SCH (07:49)
[2020-03-31] MEDS: FentaNYL (PF) 1,000 MCG/100 ML IV.SOLN IVC SCH ×2 (07:49→16:57)
[2020-03-31] MEDS: Cyanocobalamin (B-12) 1,000 MCG TABLET PO SCH (07:49)
[2020-03-31] MEDS ORDERED: Spironolactone 25 MG TABLET PO SCH (09:00)
[2020-03-31] MEDS: Famotidine 20 MG/2 ML VIAL IVP SCH (11:49)
[2020-03-31 12:11] LABS: Hematocrit 23.7 % (35.3-44.9); Hemoglobin 7.5 g/dL (11.5-15.4); Mean Corpuscular HGB Conc 31.6 g/dL (31.6-35.5); Mean Corpuscular Hemoglobin 29.4 pg (28.0-33.3); Mean Corpuscular Volume 92.9 fL (83.0-100.0); Mean Platelet Volume 10.3 fL (9.4-12.4); Platelet Count 263 K/mcL (140-400); Red Blood Count 2.55 M/mcL (3.82-4.97); Red Cell Distribution Width 14.9 % (11.5-14.5); White Blood Count 13.8 K/mcL (4.3-11.1)
[2020-03-31] MEDS ORDERED: Furosemide 20 MG/2 ML VIAL IVP ONE (14:44)
[2020-03-31] MEDS: Norepinephrine 4 MG/254 ML IV.SOLN IVC SCH (16:04)
[2020-03-31] MEDS ORDERED: 0.9 % Sodium Chloride 250 ML ONE (16:37)
[2020-03-31] MEDS: QUEtiapine Fumarate 25 MG TABLET PO SCH (21:38)
[2020-04-01] MEDS: Norepinephrine 4 MG/254 ML IV.SOLN IVC SCH ×2 (02:42→14:18)
[2020-04-01] MEDS: levETIRAcetam 500 MG/5 ML UDC GTUBE SCH ×2 (03:13→15:27)
[2020-04-01] MEDS: Artificial Tears SOLN 15 ML BOTTLE BOTH EYES SCH ×6 (03:13→23:28)
[2020-04-01 03:37] LABS: Basophils % 0.5 %; Eosinophils % 0.4 %; Hematocrit 25.6 % (35.3-44.9); Hemoglobin 8.2 g/dL (11.5-15.4); Immature Granulocytes % 0.6 % (0-4); Lymphocytes # 1.7 K/mcL (0.6-4.6); Lymphocytes % 20.1 %; Mean Corpuscular Hemoglobin 29.7 pg (28.0-33.3); Mean Corpuscular Volume 92.8 fL (83.0-100.0); Mean Platelet Volume 10.1 fL (9.4-12.4); Monocytes # 0.6 K/mcL (0.0-1.3); Monocytes % 7.3 %; Neutrophils # 5.9 K/mcL (1.6-8.9); Nucleated Red Blood Cells 0.5 /100 WBC (0); Platelet Count 215 K/mcL (140-400); Red Blood Count 2.76 M/mcL (3.82-4.97); Red Cell Distribution Width 14.8 % (11.5-14.5); Segmented Neutrophils % 71.1 %; White Blood Count 8.4 K/mcL (4.3-11.1)
[2020-04-01] MEDS: FentaNYL (PF) 1,000 MCG/100 ML IV.SOLN IVC SCH ×3 (03:54→21:09)
[2020-04-01 03:59] LABS: Calcium 9.1 mg/dL (8.6-10.3); Potassium 3.5 mEq/L (3.5-5.1)
[2020-04-01 04:13] LABS: ABG Base Excess -2 mEq/L (-2 to 3); ABG HCO3 22 mEq/L (21-27); ABG Oxygen Saturation 94 % (95-98); ABG PCO2 36 mmHg (35-45); ABG PO2 70 mmHg (85-104); ABG TCO2 24 mEq/L (20-26); Blood Gas Modality ASSIST CONTROL; Blood Gas VT 400 cc
[2020-04-01] MEDS: *HR* Heparin 5,000 UNIT/ML VIAL SQ SCH (04:57)
[2020-04-01] MEDS: DOXYCYCLINE ORAL SUSPENSION 100 MG/10 ML UDC PO SCH ×2 (04:58→17:21)
[2020-04-01] MEDS ORDERED: *HR* Heparin 5,000 UNIT/ML VIAL IVP PRN ×2 (07:05)
[2020-04-01] MEDS: Chlorhexidine Rinse 15 ML MOUTHWASH MM SCH ×2 (07:55→19:20)
[2020-04-01] MEDS: Cholecalciferol (D-3) 1,000 UNIT (25MCG) TABLET PO SCH (07:56)
[2020-04-01] MEDS: Heparin 25,000UNIT/250ML 1/2NS 25,000 UNIT/250 ML IV.SOLN IVC SCH (07:56)
[2020-04-01] MEDS: Aspirin 81 MG TAB.CHEW PO SCH (07:56)
[2020-04-01] MEDS: Cyanocobalamin (B-12) 1,000 MCG TABLET PO SCH (07:56)
[2020-04-01 08:24] LABS: INR 1.1; Prothrombin Time 12.5 Seconds (9.4-12.1)
[2020-04-01 08:25] LABS: Heparin anti-factor XA UFH 0.1 IU/mL (0.30-0.70)
[2020-04-01 08:27] LABS: Activated Partial Thrombo Time 26.3 Seconds (26.0-36.0)
[2020-04-01] MEDS: Famotidine 20 MG/2 ML VIAL IVP SCH (11:28)
[2020-04-01] MEDS: QUEtiapine Fumarate 25 MG TABLET PO SCH (19:20)
[2020-04-01 20:10] LABS: Hematocrit 25.3 % (35.3-44.9); Hemoglobin 7.9 g/dL (11.5-15.4)
[2020-04-01] MEDS: Midazolam HCl 50 MG/100 ML IV.SOLN IVC SCH (23:30)
[2020-04-01] MEDS: cefTRIAXone 1,000 MG in 0.9 % Sodium Chloride Mini Bag 100 ML IVPB SCH (23:30)
[2020-04-02] MEDS: Artificial Tears SOLN 15 ML BOTTLE BOTH EYES SCH ×6 (03:16→23:12)
[2020-04-02] MEDS: levETIRAcetam 500 MG/5 ML UDC GTUBE SCH ×2 (03:16→14:51)
[2020-04-02 03:36] LABS: Basophils % 0.3 %; Eosinophils # 0.1 K/mcL (0.0-0.6); Eosinophils % 1.3 %; Hemoglobin 7.6 g/dL (11.5-15.4); Immature Granulocytes % 0.9 % (0-4); Lymphocytes # 1.3 K/mcL (0.6-4.6); Lymphocytes % 16.3 %; Mean Corpuscular HGB Conc 30.4 g/dL (31.6-35.5); Mean Corpuscular Hemoglobin 28.8 pg (28.0-33.3); Mean Corpuscular Volume 94.7 fL (83.0-100.0); Mean Platelet Volume 10.2 fL (9.4-12.4); Monocytes # 0.7 K/mcL (0.0-1.3); Monocytes % 8.9 %; Neutrophils # 5.6 K/mcL (1.6-8.9); Nucleated Red Blood Cells 0.4 /100 WBC (0); Platelet Count 187 K/mcL (140-400); Red Blood Count 2.64 M/mcL (3.82-4.97); Segmented Neutrophils % 72.3 %; White Blood Count 7.8 K/mcL (4.3-11.1)
[2020-04-02 03:49] LABS: VBG Ionized Calcium 1.24 mmol/L (1.15-1.35)
[2020-04-02 03:55] LABS: Calcium 9.1 mg/dL (8.6-10.3); Potassium 3.5 mEq/L (3.5-5.1)
[2020-04-02 03:56] LABS: Albumin 3.1 g/dL (3.5-5.7); Albumin/Globulin Ratio 1.2 (1.1-2.2); Bilirubin,Total 0.5 mg/dL (0.3-1.0); Globulin 2.6 g/dL (2.4-3.5); Magnesium 1.9 mg/dL (1.6-2.6); Phosphorous 3.1 mg/dL (2.7-4.5); Potassium 3.5 mEq/L (3.5-5.1); Total Protein 5.7 g/dL (6.4-8.9)
[2020-04-02] MEDS: DOXYCYCLINE ORAL SUSPENSION 100 MG/10 ML UDC PO SCH ×2 (04:57→17:39)
[2020-04-02 05:11] LABS: ABG Base Excess -1 mEq/L (-2 to 3); ABG HCO3 23 mEq/L (21-27); ABG Oxygen Saturation 62 % (95-98); ABG PCO2 33 mmHg (35-45); ABG PH 7.45 pH Units (7.32-7.45); ABG PO2 30 mmHg (85-104); ABG TCO2 24 mEq/L (20-26); Blood Gas VT 400 cc
[2020-04-02 05:38] LABS: ABG Base Excess 0 mEq/L (-2 to 3); ABG HCO3 23 mEq/L (21-27); ABG Oxygen Saturation 100 % (95-98); ABG PCO2 28 mmHg (35-45); ABG PH 7.51 pH Units (7.32-7.45); ABG PO2 145 mmHg (85-104); ABG TCO2 24 mEq/L (20-26); Blood Gas VT 400 cc
[2020-04-02] MEDS: Heparin 25,000UNIT/250ML 1/2NS 25,000 UNIT/250 ML IV.SOLN IVC SCH ×2 (07:34→08:12)
[2020-04-02] MEDS: Cyanocobalamin (B-12) 1,000 MCG TABLET PO SCH (07:35)
[2020-04-02] MEDS: Cholecalciferol (D-3) 1,000 UNIT (25MCG) TABLET PO SCH (07:35)
[2020-04-02] MEDS: Aspirin 81 MG TAB.CHEW PO SCH (07:35)
[2020-04-02] MEDS: Chlorhexidine Rinse 15 ML MOUTHWASH MM SCH ×2 (07:35→20:17)
[2020-04-02] MEDS: FentaNYL (PF) 1,000 MCG/100 ML IV.SOLN IVC SCH ×2 (08:12→21:03)
[2020-04-02] MEDS: Phenylephrine 50 MG in 0.9 % Sodium Chloride 250 ML IVC SCH (11:30)
[2020-04-02] MEDS: Famotidine 20 MG/2 ML VIAL IVP SCH (12:46)
[2020-04-02] MEDS: QUEtiapine Fumarate 25 MG TABLET PO SCH (20:17)
[2020-04-02] MEDS: cefTRIAXone 1,000 MG in 0.9 % Sodium Chloride Mini Bag 100 ML IVPB SCH (23:12)
[2020-04-03] MEDS: levETIRAcetam 500 MG/5 ML UDC GTUBE SCH ×2 (03:09→14:15)
[2020-04-03] MEDS: Midazolam HCl 50 MG/100 ML IV.SOLN IVC SCH (03:09)
[2020-04-03] MEDS: Artificial Tears SOLN 15 ML BOTTLE BOTH EYES SCH ×6 (03:09→23:45)
[2020-04-03 03:25] LABS: Basophils % 0.3 %; Eosinophils # 0.2 K/mcL (0.0-0.6); Eosinophils % 1.9 %; Hematocrit 22.7 % (35.3-44.9); Hemoglobin 6.9 g/dL (11.5-15.4); Lymphocytes # 1.3 K/mcL (0.6-4.6); Lymphocytes % 17.1 %; Mean Corpuscular HGB Conc 30.4 g/dL (31.6-35.5); Mean Corpuscular Hemoglobin 29.2 pg (28.0-33.3); Mean Corpuscular Volume 96.2 fL (83.0-100.0); Mean Platelet Volume 9.8 fL (9.4-12.4); Monocytes # 0.6 K/mcL (0.0-1.3); Monocytes % 7.3 %; Neutrophils # 5.6 K/mcL (1.6-8.9); Nucleated Red Blood Cells 1.2 /100 WBC (0); Platelet Count 168 K/mcL (140-400); Red Blood Count 2.36 M/mcL (3.82-4.97); Red Cell Distribution Width 15.2 % (11.5-14.5); Segmented Neutrophils % 72.4 %; White Blood Count 7.7 K/mcL (4.3-11.1)
[2020-04-03 03:46] LABS: Calcium 9.2 mg/dL (8.6-10.3); Potassium 3.8 mEq/L (3.5-5.1)
[2020-04-03 04:53] LABS: ABG Base Excess 0 mEq/L (-2 to 3); ABG HCO3 24 mEq/L (21-27); ABG Oxygen Saturation 95 % (95-98); ABG PCO2 36 mmHg (35-45); ABG PH 7.43 pH Units (7.32-7.45); ABG PO2 72 mmHg (85-104); ABG TCO2 25 mEq/L (20-26); Blood Gas Modality ASSIST CONTROL; Blood Gas VT 400 cc
[2020-04-03] MEDS: DOXYCYCLINE ORAL SUSPENSION 100 MG/10 ML UDC PO SCH ×2 (05:06→16:42)
[2020-04-03] MEDS: Cyanocobalamin (B-12) 1,000 MCG TABLET PO SCH (07:11)
[2020-04-03] MEDS: Cholecalciferol (D-3) 1,000 UNIT (25MCG) TABLET PO SCH (07:11)
[2020-04-03] MEDS: Aspirin 81 MG TAB.CHEW PO SCH (07:11)
[2020-04-03] MEDS: Chlorhexidine Rinse 15 ML MOUTHWASH MM SCH ×2 (07:11→19:55)
[2020-04-03] MEDS ORDERED: Furosemide 40 MG/4 ML VIAL IVP ONE (07:36)
[2020-04-03] MEDS: Pantoprazole 40 MG VIAL IVP SCH ×2 (08:49→16:41)
[2020-04-03] MEDS: Furosemide 40 MG/4 ML VIAL IVP ONE ×2 (10:01→10:17)
[2020-04-03] MEDS: *HR* Metoprolol 5 MG/5 ML VIAL IVP PRN (10:27)
[2020-04-03] MEDS: Phenylephrine 50 MG in 0.9 % Sodium Chloride 250 ML IVC SCH (10:50)
[2020-04-03] MEDS: Dexmedetomidine HCl 400 MCG/100 ML MLS IVC SCH (12:27)
[2020-04-03] MEDS: FentaNYL (PF) 1,000 MCG/100 ML IV.SOLN IVC SCH (14:42)
[2020-04-03] MEDS: *HR* Heparin 5,000 UNIT/ML VIAL SQ SCH (16:41)
[2020-04-03] MEDS: QUEtiapine Fumarate 25 MG TABLET PO SCH (21:16)
[2020-04-04] MEDS: cefTRIAXone 1,000 MG in 0.9 % Sodium Chloride Mini Bag 100 ML IVPB SCH (00:53)
[2020-04-04] MEDS: levETIRAcetam 500 MG/5 ML UDC GTUBE SCH ×2 (03:18→13:06)
[2020-04-04] MEDS: Midazolam HCl 50 MG/100 ML IV.SOLN IVC SCH (03:18)
[2020-04-04] MEDS: Artificial Tears SOLN 15 ML BOTTLE BOTH EYES SCH ×5 (03:21→19:57)
[2020-04-04 03:54] LABS: Basophils % 0.5 %; Eosinophils # 0.3 K/mcL (0.0-0.6); Eosinophils % 3.1 %; Hematocrit 28.9 % (35.3-44.9); Hemoglobin 9.1 g/dL (11.5-15.4); Lymphocytes # 1.4 K/mcL (0.6-4.6); Lymphocytes % 16.2 %; Mean Corpuscular HGB Conc 31.5 g/dL (31.6-35.5); Mean Corpuscular Hemoglobin 29.4 pg (28.0-33.3); Mean Corpuscular Volume 93.5 fL (83.0-100.0); Mean Platelet Volume 10.7 fL (9.4-12.4); Monocytes # 0.8 K/mcL (0.0-1.3); Monocytes % 9.6 %; Neutrophils # 6.1 K/mcL (1.6-8.9); Nucleated Red Blood Cells 1.1 /100 WBC (0); Platelet Count 160 K/mcL (140-400); Red Blood Count 3.09 M/mcL (3.82-4.97); Segmented Neutrophils % 69.6 %; White Blood Count 8.8 K/mcL (4.3-11.1)
[2020-04-04 04:13] LABS: INR 1.1; Prothrombin Time 12.8 Seconds (9.4-12.1)
[2020-04-04 04:15] LABS: Activated Partial Thrombo Time 26.6 Seconds (26.0-36.0); Albumin 3.2 g/dL (3.5-5.7); Albumin/Globulin Ratio 1.1 (1.1-2.2); Bilirubin,Direct 0.2 mg/dL (0.0-0.2); Bilirubin,Indirect 0.5 mg/dL (0.0-1.0); Bilirubin,Total 0.7 mg/dL (0.3-1.0); Calcium 9.6 mg/dL (8.6-10.3); Globulin 2.8 g/dL (2.4-3.5); Magnesium 2.2 mg/dL (1.6-2.6)
[2020-04-04 04:19] LABS: Troponin I 0.71 ng/mL (< 0.04)
[2020-04-04 04:44] LABS: ABG Base Excess -1 mEq/L (-2 to 3); ABG HCO3 22 mEq/L (21-27); ABG Oxygen Saturation 91 % (95-98); ABG PCO2 33 mmHg (35-45); ABG PH 7.44 pH Units (7.32-7.45); ABG PO2 57 mmHg (85-104); ABG TCO2 23 mEq/L (20-26); Blood Gas Modality ASSIST CONTROL; Blood Gas VT 400 cc
[2020-04-04] MEDS: Pantoprazole 40 MG VIAL IVP SCH ×2 (05:53→16:18)
[2020-04-04] MEDS: *HR* Heparin 5,000 UNIT/ML VIAL SQ SCH ×2 (05:53→16:19)
[2020-04-04] MEDS: DOXYCYCLINE ORAL SUSPENSION 100 MG/10 ML UDC PO SCH ×2 (06:32→16:19)
[2020-04-04] MEDS: Cholecalciferol (D-3) 1,000 UNIT (25MCG) TABLET PO SCH (07:03)
[2020-04-04] MEDS: Chlorhexidine Rinse 15 ML MOUTHWASH MM SCH ×2 (07:03→19:56)
[2020-04-04] MEDS: Cyanocobalamin (B-12) 1,000 MCG TABLET PO SCH (07:04)
[2020-04-04] MEDS: Aspirin 81 MG TAB.CHEW PO SCH (07:04)
[2020-04-04] MEDS ORDERED: Ipratropium/Albuterol Neb 3 ML IH PRN (08:48)
[2020-04-04] MEDS: Dexmedetomidine HCl 400 MCG/100 ML MLS IVC SCH (08:52)
[2020-04-04] MEDS: FentaNYL (PF) 1,000 MCG/100 ML IV.SOLN IVC SCH ×2 (10:44→17:58)
[2020-04-04] MEDS: QUEtiapine Fumarate 25 MG TABLET PO SCH ×2 (12:13→19:57)
[2020-04-04] MEDS: Phenylephrine 50 MG in 0.9 % Sodium Chloride 250 ML IVC SCH (12:18)
[2020-04-04] MEDS: *HR* LORazepam 2 MG/ML VIAL IVP PRN ×2 (13:05→20:21)
[2020-04-04] MEDS: MetroNIDAZOLE 500 MG/100 ML 500 MG/100 ML BAG IVPB SCH (14:07)
[2020-04-04] MEDS: Cefepime HCl 2,000 MG in Water for inj. (sterile) 20 ML IVP SCH (14:15)
[2020-04-04] MEDS ORDERED: Potassium Chloride 40 MEQ/200 ML BAG IVPB PRN (14:47)
[2020-04-04] MEDS ORDERED: Potassium Phosphate 44 MEQ in 0.9 % Sodium Chloride 250 ML IVPB PRN (14:47)
[2020-04-04] MEDS ORDERED: Calcium Gluconate 1gm/50mL 1 GM/50 ML BAG IVPB PRN (14:47)
[2020-04-04] MEDS ORDERED: Furosemide 240 MG in 0.9 % Sodium Chloride 96 ML IVC SCH (15:00)
[2020-04-04] MEDS ORDERED: Cefepime HCl 2,000 MG in Water for inj. (sterile) 20 ML IVP SCH (16:00)
[2020-04-05] MEDS: Metoclopramide 10 MG/2 ML VIAL IVP SCH ×5 (00:03→23:18)
[2020-04-05] MEDS: Artificial Tears SOLN 15 ML BOTTLE BOTH EYES SCH ×7 (00:03→23:18)
[2020-04-05] MEDS: MetroNIDAZOLE 500 MG/100 ML 500 MG/100 ML BAG IVPB SCH ×4 (00:03→23:18)
[2020-04-05] MEDS: FentaNYL (PF) 1,000 MCG/100 ML IV.SOLN IVC SCH (04:00)
[2020-04-05 04:22] LABS: ABG Base Excess 0 mEq/L (-2 to 3); ABG HCO3 25 mEq/L (21-27); ABG Oxygen Saturation 99 % (95-98); ABG PCO2 38 mmHg (35-45); ABG PH 7.42 pH Units (7.32-7.45); ABG PO2 113 mmHg (85-104); ABG TCO2 26 mEq/L (20-26); Blood Gas Modality ASSIST CONTROL; Blood Gas VT 400 cc
[2020-04-05] MEDS: Midazolam HCl 50 MG/100 ML IV.SOLN IVC SCH (04:47)
[2020-04-05] MEDS: levETIRAcetam 500 MG/5 ML UDC GTUBE SCH ×2 (04:47→15:30)
[2020-04-05] MEDS: Cefepime HCl 2,000 MG in Water for inj. (sterile) 20 ML IVP SCH ×2 (04:48→17:14)
[2020-04-05 05:26] LABS: Basophils % 0.5 %; Eosinophils # 0.4 K/mcL (0.0-0.6); Eosinophils % 4.2 %; Hematocrit 30.6 % (35.3-44.9); Hemoglobin 9.6 g/dL (11.5-15.4); Immature Granulocytes % 1.1 % (0-4); Lymphocytes # 1.2 K/mcL (0.6-4.6); Lymphocytes % 13.7 %; Mean Corpuscular HGB Conc 31.4 g/dL (31.6-35.5); Mean Corpuscular Hemoglobin 29.4 pg (28.0-33.3); Mean Corpuscular Volume 93.6 fL (83.0-100.0); Monocytes # 0.9 K/mcL (0.0-1.3); Monocytes % 10.4 %; Neutrophils # 6.2 K/mcL (1.6-8.9); Nucleated Red Blood Cells 0.3 /100 WBC (0); Platelet Count 156 K/mcL (140-400); Red Blood Count 3.27 M/mcL (3.82-4.97); Segmented Neutrophils % 70.1 %; White Blood Count 8.8 K/mcL (4.3-11.1)
[2020-04-05] MEDS: *HR* Heparin 5,000 UNIT/ML VIAL SQ SCH (05:31)
[2020-04-05] MEDS: Pantoprazole 40 MG VIAL IVP SCH ×2 (05:31→17:15)
[2020-04-05 05:47] LABS: Calcium 10.3 mg/dL (8.6-10.3); Magnesium 2.2 mg/dL (1.6-2.6); Potassium 3.9 mEq/L (3.5-5.1)
[2020-04-05] MEDS: DOXYCYCLINE ORAL SUSPENSION 100 MG/10 ML UDC PO SCH ×2 (06:04→17:15)
[2020-04-05] MEDS: Cyanocobalamin (B-12) 1,000 MCG TABLET PO SCH (08:22)
[2020-04-05] MEDS: Aspirin 81 MG TAB.CHEW PO SCH (08:22)
[2020-04-05] MEDS: Chlorhexidine Rinse 15 ML MOUTHWASH MM SCH ×2 (08:22→19:41)
[2020-04-05] MEDS: Cholecalciferol (D-3) 1,000 UNIT (25MCG) TABLET PO SCH (08:22)
[2020-04-05] MEDS: QUEtiapine Fumarate 25 MG TABLET PO SCH ×2 (08:22→19:41)
[2020-04-05] MEDS: Dexmedetomidine HCl 400 MCG/100 ML MLS IVC SCH (11:18)
[2020-04-05] MEDS ORDERED: *HR* Heparin 5,000 UNIT/ML VIAL IVP PRN ×2 (11:38)
[2020-04-05 12:56] LABS: VBG Ionized Calcium 1.25 mmol/L (1.15-1.35)
[2020-04-05] MEDS: Heparin 25,000UNIT/250ML 1/2NS 25,000 UNIT/250 ML IV.SOLN IVC SCH (13:03)
[2020-04-05] MEDS ORDERED: *HR* Heparin 5,000 UNIT/ML VIAL SQ SCH (14:00)
[2020-04-05 14:31] LABS: Hematocrit 29.1 % (35.3-44.9); Hemoglobin 9.3 g/dL (11.5-15.4)
[2020-04-05] MEDS: Phenylephrine 50 MG in 0.9 % Sodium Chloride 250 ML IVC SCH (15:39)
[2020-04-06] MEDS: Phenylephrine 50 MG in 0.9 % Sodium Chloride 250 ML IVC SCH (02:23)
[2020-04-06] MEDS: levETIRAcetam 500 MG/5 ML UDC GTUBE SCH ×2 (03:29→19:37)
[2020-04-06] MEDS: Cefepime HCl 2,000 MG in Water for inj. (sterile) 20 ML IVP SCH (03:29)
[2020-04-06] MEDS: Midazolam HCl 50 MG/100 ML IV.SOLN IVC SCH (03:30)
[2020-04-06] MEDS: Artificial Tears SOLN 15 ML BOTTLE BOTH EYES SCH ×5 (03:30→19:37)
[2020-04-06 04:03] LABS: Hematocrit 30.1 % (35.3-44.9); Hemoglobin 9.6 g/dL (11.5-15.4); Mean Corpuscular HGB Conc 31.9 g/dL (31.6-35.5); Mean Corpuscular Hemoglobin 30.5 pg (28.0-33.3); Mean Corpuscular Volume 95.6 fL (83.0-100.0); Mean Platelet Volume 10.6 fL (9.4-12.4); Platelet Count 162 K/mcL (140-400); Red Blood Count 3.15 M/mcL (3.82-4.97); Red Cell Distribution Width 15.1 % (11.5-14.5); White Blood Count 8.9 K/mcL (4.3-11.1)
[2020-04-06 04:11] LABS: ABG Base Excess -1 mEq/L (-2 to 3); ABG HCO3 23 mEq/L (21-27); ABG Oxygen Saturation 96 % (95-98); ABG PCO2 34 mmHg (35-45); ABG PH 7.44 pH Units (7.32-7.45); ABG PO2 76 mmHg (85-104); ABG TCO2 24 mEq/L (20-26); Blood Gas VT 400 cc
[2020-04-06 04:21] LABS: Calcium 10.4 mg/dL (8.6-10.3); Potassium 3.8 mEq/L (3.5-5.1)
[2020-04-06] MEDS ORDERED: *HR* Atropine Sulfate 1 MG/10 ML SYRINGE ONE (05:01)
[2020-04-06] MEDS: Metoclopramide 10 MG/2 ML VIAL IVP SCH ×4 (05:03→23:57)
[2020-04-06] MEDS: DOXYCYCLINE ORAL SUSPENSION 100 MG/10 ML UDC PO SCH (05:03)
[2020-04-06] MEDS: Pantoprazole 40 MG VIAL IVP SCH ×2 (05:03→17:44)
[2020-04-06] MEDS: Cyanocobalamin (B-12) 1,000 MCG TABLET PO SCH (08:14)
[2020-04-06] MEDS: Chlorhexidine Rinse 15 ML MOUTHWASH MM SCH ×2 (08:14→19:37)
[2020-04-06] MEDS: Aspirin 81 MG TAB.CHEW PO SCH (08:14)
[2020-04-06] MEDS: QUEtiapine Fumarate 25 MG TABLET PO SCH ×2 (08:15→19:37)
[2020-04-06] MEDS: Cholecalciferol (D-3) 1,000 UNIT (25MCG) TABLET PO SCH (08:15)
[2020-04-06] MEDS: MetroNIDAZOLE 500 MG/100 ML 500 MG/100 ML BAG IVPB SCH ×3 (08:15→23:58)
[2020-04-06] MEDS: Dexmedetomidine HCl 400 MCG/100 ML MLS IVC SCH (10:59)
[2020-04-06] MEDS: Norepinephrine 4 MG/254 ML IV.SOLN IVC SCH (13:49)
[2020-04-06] MEDS: Heparin 25,000UNIT/250ML 1/2NS 25,000 UNIT/250 ML IV.SOLN IVC SCH ×2 (17:41→18:14)
[2020-04-06] MEDS: Cefepime HCl 1,000 MG in Water for inj. (sterile) 10 ML IVP SCH (17:44)
[2020-04-06] MEDS: *HR* Metoprolol 5 MG/5 ML VIAL IVP PRN ×2 (19:31→20:50)
[2020-04-06] MEDS ORDERED: 0.9 % Sodium Chloride 500 ML IVC ONE (21:34)
[2020-04-06] MEDS: *HR* LORazepam 2 MG/ML VIAL IVP PRN (21:51)
[2020-04-06] MEDS ORDERED: Amiodarone Premix 150 MG/100 ML BAG IVPB ONE (22:19)
[2020-04-06] MEDS ORDERED: Amiodarone Premix 360 MG/200 ML BAG IVC ONE (22:30)
[2020-04-07] MEDS: *HR* Metoprolol 5 MG/5 ML VIAL IVP PRN ×3 (03:28→18:51)
[2020-04-07 03:50] LABS: Hematocrit 31.4 % (35.3-44.9); Hemoglobin 9.8 g/dL (11.5-15.4); Mean Corpuscular HGB Conc 31.2 g/dL (31.6-35.5); Mean Corpuscular Hemoglobin 29.8 pg (28.0-33.3); Mean Corpuscular Volume 95.4 fL (83.0-100.0); Platelet Count 146 K/mcL (140-400); Red Blood Count 3.29 M/mcL (3.82-4.97); White Blood Count 7.1 K/mcL (4.3-11.1)
[2020-04-07 04:07] LABS: Calcium 10.4 mg/dL (8.6-10.3)
[2020-04-07] MEDS: Amiodarone Premix 360 MG/200 ML BAG IVC SCH ×2 (04:36→15:38)
[2020-04-07] MEDS: Pantoprazole 40 MG VIAL IVP SCH (05:21)
[2020-04-07] MEDS: Cefepime HCl 1,000 MG in Water for inj. (sterile) 10 ML IVP SCH ×2 (05:21→16:23)
[2020-04-07] MEDS: Metoclopramide 10 MG/2 ML VIAL IVP SCH ×3 (05:21→16:22)
[2020-04-07] MEDS: *HR* LORazepam 2 MG/ML VIAL IVP PRN (05:28)
[2020-04-07] MEDS: MetroNIDAZOLE 500 MG/100 ML 500 MG/100 ML BAG IVPB SCH ×2 (07:15→15:41)
[2020-04-07] MEDS: levETIRAcetam 500 MG/5 ML UDC GTUBE SCH (08:14)
[2020-04-07] MEDS: Aspirin 81 MG TAB.CHEW PO SCH (08:14)
[2020-04-07] MEDS: Cholecalciferol (D-3) 1,000 UNIT (25MCG) TABLET PO SCH (08:15)
[2020-04-07] MEDS: Cyanocobalamin (B-12) 1,000 MCG TABLET PO SCH (08:15)
[2020-04-07] MEDS: QUEtiapine Fumarate 25 MG TABLET PO SCH ×2 (08:15→20:14)
[2020-04-07] MEDS: levETIRAcetam 750 MG in 0.9 % Sodium Chloride 100 ML IVPB SCH ×2 (09:09→21:00)
[2020-04-07] MEDS: Dexmedetomidine HCl 400 MCG/100 ML MLS IVC SCH (09:12)
[2020-04-07] MEDS: Norepinephrine 4 MG/254 ML IV.SOLN IVC SCH (09:12)
[2020-04-07] MEDS ORDERED: MethylPREDNISolone 40 MG/ML VIAL IVP SCH (09:15)
[2020-04-07] MEDS: MethylPREDNISolone 40 MG/ML VIAL IVP SCH ×2 (09:45→16:23)
[2020-04-07] MEDS ORDERED: Albumin 25% 25gram/100mL 25 GM/100 ML IV.SOLN IVPB ONE (10:50)
[2020-04-07] MEDS: Ipratropium/Albuterol Neb 3 ML IH SCH ×3 (11:14→21:18)
[2020-04-07] MEDS ORDERED: Furosemide 40 MG/4 ML VIAL IVP ONE (13:00)
[2020-04-07] MEDS ORDERED: *HR* Dextrose 50 % in Water (Vial) 50 ML VIAL IVP PRN (13:10)
[2020-04-07] MEDS ORDERED: D5% in Water 1,000 ML IVC PRN (13:10)
[2020-04-07] MEDS ORDERED: Dextrose Gel 15 GM/37.5 ML TUBE PO PRN ×2 (13:10)
[2020-04-07] MEDS: Heparin 25,000UNIT/250ML 1/2NS 25,000 UNIT/250 ML IV.SOLN IVC SCH (15:39)
[2020-04-07] MEDS: Insulin LISPRO 300 UNITS/3 ML VIAL SQ SCH (17:09)
[2020-04-08] MEDS: MethylPREDNISolone 40 MG/ML VIAL IVP SCH ×2 (00:29→08:29)
[2020-04-08] MEDS: MetroNIDAZOLE 500 MG/100 ML 500 MG/100 ML BAG IVPB SCH ×2 (00:29→08:30)
[2020-04-08] MEDS: Insulin LISPRO 300 UNITS/3 ML VIAL SQ SCH ×6 (00:30→23:51)
[2020-04-08] MEDS: Metoclopramide 10 MG/2 ML VIAL IVP SCH ×6 (00:30→23:53)
[2020-04-08] MEDS: Ipratropium/Albuterol Neb 3 ML IH SCH ×4 (03:17→22:15)
[2020-04-08] MEDS: Amiodarone Premix 360 MG/200 ML BAG IVC SCH (04:09)
[2020-04-08 04:19] LABS: ABG Base Excess -4 mEq/L (-2 to 3); ABG HCO3 19 mEq/L (21-27); ABG Oxygen Saturation 97 % (95-98); ABG PCO2 29 mmHg (35-45); ABG PH 7.43 pH Units (7.32-7.45); ABG PO2 85 mmHg (85-104); ABG TCO2 20 mEq/L (20-26); Blood Gas Pressure Support 6 cm H2O
[2020-04-08 04:33] LABS: Hematocrit 33.4 % (35.3-44.9); Hemoglobin 10.2 g/dL (11.5-15.4); Mean Corpuscular HGB Conc 30.5 g/dL (31.6-35.5); Mean Corpuscular Hemoglobin 29.3 pg (28.0-33.3); Mean Platelet Volume 11.2 fL (9.4-12.4); Platelet Count 180 K/mcL (140-400); Red Blood Count 3.48 M/mcL (3.82-4.97); Red Cell Distribution Width 15.1 % (11.5-14.5)
[2020-04-08 05:05] LABS: Calcium 10.5 mg/dL (8.6-10.3); Magnesium 2.3 mg/dL (1.6-2.6); Phosphorous 3.1 mg/dL (2.7-4.5); Potassium 4.2 mEq/L (3.5-5.1)
[2020-04-08 05:10] LABS: White Blood Count 11.7 K/mcL (4.3-11.1)
[2020-04-08] MEDS: Cefepime HCl 1,000 MG in Water for inj. (sterile) 10 ML IVP SCH (05:13)
[2020-04-08] MEDS: Aspirin 81 MG TAB.CHEW PO SCH (07:21)
[2020-04-08] MEDS: Dexmedetomidine HCl 400 MCG/100 ML MLS IVC SCH (08:26)
[2020-04-08] MEDS: Cyanocobalamin (B-12) 1,000 MCG TABLET PO SCH (08:26)
[2020-04-08] MEDS: Norepinephrine 4 MG/254 ML IV.SOLN IVC SCH (08:26)
[2020-04-08] MEDS: QUEtiapine Fumarate 25 MG TABLET PO SCH ×2 (08:26→21:56)
[2020-04-08] MEDS: Cholecalciferol (D-3) 1,000 UNIT (25MCG) TABLET PO SCH (08:26)
[2020-04-08] MEDS: levETIRAcetam 750 MG in 0.9 % Sodium Chloride 100 ML IVPB SCH (08:29)
[2020-04-08] MEDS ORDERED: Pantoprazole 40 MG VIAL IVP SCH (09:00)
[2020-04-08 09:06] LABS: Albumin 3.9 g/dL (3.5-5.7); Albumin/Globulin Ratio 1.3 (1.1-2.2); Bilirubin,Direct 0.2 mg/dL (0.0-0.2); Bilirubin,Indirect 0.9 mg/dL (0.0-1.0); Bilirubin,Total 1.1 mg/dL (0.3-1.0); Globulin 2.9 g/dL (2.4-3.5); Total Protein 6.8 g/dL (6.4-8.9)
[2020-04-08] MEDS: *HR* Metoprolol 5 MG/5 ML VIAL IVP PRN (10:54)
[2020-04-08] MEDS ORDERED: E-Z-PAQUE (BARIUM SULF) SUSP 1 BOTTLE PO ONE (13:11)
[2020-04-08] MEDS ORDERED: E-Z-HD (BARIUM SULF) SUSPENSION PO ONE (13:11)
[2020-04-08] MEDS: Heparin 25,000UNIT/250ML 1/2NS 25,000 UNIT/250 ML IV.SOLN IVC SCH (16:35)
[2020-04-08] MEDS ORDERED: *HR* Rivaroxaban 15 MG TABLET PO SCH (17:00)
[2020-04-08] MEDS ORDERED: D5% in Water 1,000 ML IVC PRN (17:19)
[2020-04-08] MEDS ORDERED: Ipratropium/Albuterol Neb 3 ML IH PRN (17:19)
[2020-04-08] MEDS ORDERED: *HR* Dextrose 50 % in Water (Vial) 50 ML VIAL IVP PRN (17:19)
[2020-04-08] MEDS ORDERED: Calcium Gluconate 1gm/50mL 1 GM/50 ML BAG IVPB PRN (17:19)
[2020-04-08] MEDS ORDERED: Dextrose Gel 15 GM/37.5 ML TUBE PO PRN ×2 (17:19)
[2020-04-08] MEDS ORDERED: Naloxone 0.4 MG/ML INJ IVP PRN (17:19)
[2020-04-08] MEDS ORDERED: levETIRAcetam 500 MG/5 ML UDC PO SCH (21:00)
[2020-04-08] MEDS: levETIRAcetam 500 MG/5 ML UDC PO SCH (21:56)
[2020-04-09] MEDS: Ipratropium/Albuterol Neb 3 ML IH SCH ×4 (03:33→21:52)
[2020-04-09 03:53] LABS: Basophils % 0.2 %; Eosinophils % 0.2 %; Hematocrit 30.2 % (35.3-44.9); Hemoglobin 9.2 g/dL (11.5-15.4); Immature Granulocytes % 0.6 % (0-4); Lymphocytes # 0.8 K/mcL (0.6-4.6); Lymphocytes % 7.1 %; Mean Corpuscular HGB Conc 30.5 g/dL (31.6-35.5); Mean Corpuscular Hemoglobin 29.7 pg (28.0-33.3); Mean Corpuscular Volume 97.4 fL (83.0-100.0); Mean Platelet Volume 11.2 fL (9.4-12.4); Monocytes # 0.8 K/mcL (0.0-1.3); Monocytes % 7.3 %; Neutrophils # 9.4 K/mcL (1.6-8.9); Platelet Count 158 K/mcL (140-400); Red Cell Distribution Width 15.4 % (11.5-14.5); Segmented Neutrophils % 84.6 %; White Blood Count 11.1 K/mcL (4.3-11.1)
[2020-04-09 03:57] LABS: INR 1.8; Prothrombin Time 20.3 Seconds (9.4-12.1)
[2020-04-09 04:12] LABS: Calcium 10.5 mg/dL (8.6-10.3); Magnesium 2.3 mg/dL (1.6-2.6); Potassium 3.9 mEq/L (3.5-5.1)
[2020-04-09] MEDS: Insulin LISPRO 300 UNITS/3 ML VIAL SQ SCH ×2 (05:38→19:51)
[2020-04-09] MEDS: Metoclopramide 10 MG/2 ML VIAL IVP SCH (05:38)
[2020-04-09] MEDS ORDERED: predniSONE 20 MG TABLET PO SCH (09:00)
[2020-04-09] MEDS: levETIRAcetam 500 MG/5 ML UDC PO SCH ×2 (09:21→20:35)
[2020-04-09] MEDS: QUEtiapine Fumarate 25 MG TABLET PO SCH ×2 (09:23→20:35)
[2020-04-09] MEDS: predniSONE 20 MG TABLET PO SCH (09:23)
[2020-04-09] MEDS: Cyanocobalamin (B-12) 1,000 MCG TABLET PO SCH (09:24)
[2020-04-09] MEDS: Aspirin 81 MG TAB.CHEW PO SCH (09:24)
[2020-04-09] MEDS: Cholecalciferol (D-3) 1,000 UNIT (25MCG) TABLET PO SCH (09:25)
[2020-04-09] MEDS: *HR* Rivaroxaban 15 MG TABLET PO SCH (18:14)
[2020-04-09] MEDS ORDERED: Insulin LISPRO 300 UNITS/3 ML VIAL SQ SCH (21:00)
[2020-04-10] MEDS: Ipratropium/Albuterol Neb 3 ML IH SCH ×4 (03:22→21:56)
[2020-04-10] MEDS: predniSONE 20 MG TABLET PO SCH (08:12)
[2020-04-10] MEDS: Aspirin 81 MG TAB.CHEW PO SCH (08:12)
[2020-04-10] MEDS: Cyanocobalamin (B-12) 1,000 MCG TABLET PO SCH (08:12)
[2020-04-10] MEDS: Cholecalciferol (D-3) 1,000 UNIT (25MCG) TABLET PO SCH (08:13)
[2020-04-10] MEDS: QUEtiapine Fumarate 25 MG TABLET PO SCH ×2 (08:13→21:11)
[2020-04-10] MEDS: Insulin LISPRO 300 UNITS/3 ML VIAL SQ SCH (08:14)
[2020-04-10 08:27] LABS: Basophils % 0.2 %; Eosinophils # 0.1 K/mcL (0.0-0.6); Eosinophils % 0.6 %; Hematocrit 29.1 % (35.3-44.9); Hemoglobin 9.1 g/dL (11.5-15.4); Immature Granulocytes % 0.6 % (0-4); Lymphocytes # 1.1 K/mcL (0.6-4.6); Lymphocytes % 12.8 %; Mean Corpuscular HGB Conc 31.3 g/dL (31.6-35.5); Mean Corpuscular Hemoglobin 30.4 pg (28.0-33.3); Mean Corpuscular Volume 97.3 fL (83.0-100.0); Mean Platelet Volume 11.8 fL (9.4-12.4); Monocytes # 0.8 K/mcL (0.0-1.3); Monocytes % 8.9 %; Neutrophils # 6.5 K/mcL (1.6-8.9); Platelet Count 135 K/mcL (140-400); Red Blood Count 2.99 M/mcL (3.82-4.97); Red Cell Distribution Width 15.4 % (11.5-14.5); Segmented Neutrophils % 76.9 %; White Blood Count 8.5 K/mcL (4.3-11.1)
[2020-04-10 08:45] LABS: Calcium 10.1 mg/dL (8.6-10.3); Magnesium 2.3 mg/dL (1.6-2.6); Potassium 4.1 mEq/L (3.5-5.1)
[2020-04-10] MEDS: levETIRAcetam 250 MG TABLET PO SCH ×2 (09:18→21:11)
[2020-04-10] MEDS: polyethylene glycoL 3350 17 GM POWD.PACK PO PRN (09:18)
[2020-04-10] MEDS: Metoprolol XL (24 HR) Succ 25 MG TAB.ER.24H PO SCH ×3 (09:22→21:10)
[2020-04-10 11:38] LABS: Estimated Average Glucose 120 mg/dl
[2020-04-10] MEDS: Furosemide 40 MG TABLET PO SCH (11:47)
[2020-04-10] MEDS: *HR* Rivaroxaban 15 MG TABLET PO SCH (17:45)
[2020-04-11] MEDS: Ipratropium/Albuterol Neb 3 ML IH SCH (04:09)
[2020-04-11] MEDS: QUEtiapine Fumarate 25 MG TABLET PO SCH ×2 (07:40→20:31)
[2020-04-11] MEDS: Aspirin 81 MG TAB.CHEW PO SCH (07:40)
[2020-04-11] MEDS: predniSONE 20 MG TABLET PO SCH (07:41)
[2020-04-11] MEDS: Cholecalciferol (D-3) 1,000 UNIT (25MCG) TABLET PO SCH (07:41)
[2020-04-11] MEDS: Cyanocobalamin (B-12) 1,000 MCG TABLET PO SCH (07:41)
[2020-04-11] MEDS: Furosemide 40 MG TABLET PO SCH (07:42)
[2020-04-11] MEDS: levETIRAcetam 250 MG TABLET PO SCH ×2 (07:42→20:30)
[2020-04-11] MEDS: Metoprolol XL (24 HR) Succ 25 MG TAB.ER.24H PO SCH ×4 (08:48→20:34)
[2020-04-11] MEDS: Levalbuterol Neb 0.63 MG/3 ML IH SCH ×3 (10:59→21:53)
[2020-04-11] MEDS: polyethylene glycoL 3350 17 GM POWD.PACK PO PRN (16:45)
[2020-04-11] MEDS: *HR* Rivaroxaban 15 MG TABLET PO SCH (16:45)
[2020-04-12 02:34] LABS: Basophils % 0.2 %; Eosinophils # 0.1 K/mcL (0.0-0.6); Eosinophils % 0.5 %; Hematocrit 31.6 % (35.3-44.9); Hemoglobin 9.8 g/dL (11.5-15.4); Immature Granulocytes % 0.9 % (0-4); Lymphocytes # 1.6 K/mcL (0.6-4.6); Lymphocytes % 13.9 %; Mean Corpuscular Hemoglobin 29.8 pg (28.0-33.3); Mean Platelet Volume 11.8 fL (9.4-12.4); Monocytes % 8.7 %; Neutrophils # 8.9 K/mcL (1.6-8.9); Nucleated Red Blood Cells 0.2 /100 WBC (0); Platelet Count 175 K/mcL (140-400); Red Blood Count 3.29 M/mcL (3.82-4.97); Red Cell Distribution Width 15.2 % (11.5-14.5); Segmented Neutrophils % 75.8 %; White Blood Count 11.7 K/mcL (4.3-11.1)
[2020-04-12 02:35] LABS: INR 1.7; Prothrombin Time 19.7 Seconds (9.4-12.1)
[2020-04-12 02:50] LABS: Calcium 9.8 mg/dL (8.6-10.3); Potassium 4.1 mEq/L (3.5-5.1)
[2020-04-12] MEDS: Levalbuterol Neb 0.63 MG/3 ML IH SCH ×4 (04:08→22:02)
[2020-04-12] MEDS: Furosemide 40 MG TABLET PO SCH (08:06)
[2020-04-12] MEDS: Metoprolol XL (24 HR) Succ 25 MG TAB.ER.24H PO SCH ×2 (08:06→20:45)
[2020-04-12] MEDS: Cyanocobalamin (B-12) 1,000 MCG TABLET PO SCH (08:06)
[2020-04-12] MEDS: Aspirin 81 MG TAB.CHEW PO SCH (08:06)
[2020-04-12] MEDS: levETIRAcetam 250 MG TABLET PO SCH ×2 (08:06→20:46)
[2020-04-12] MEDS: QUEtiapine Fumarate 25 MG TABLET PO SCH ×2 (08:06→20:46)
[2020-04-12] MEDS: Cholecalciferol (D-3) 1,000 UNIT (25MCG) TABLET PO SCH (08:06)
[2020-04-12] MEDS: *HR* Rivaroxaban 15 MG TABLET PO SCH (16:57)
[2020-04-13] MEDS: Levalbuterol Neb 0.63 MG/3 ML IH SCH ×4 (03:44→21:31)
[2020-04-13 04:49] LABS: Basophils % 0.3 %; Eosinophils # 0.3 K/mcL (0.0-0.6); Eosinophils % 3.2 %; Hematocrit 35.1 % (35.3-44.9); Hemoglobin 10.9 g/dL (11.5-15.4); Immature Granulocytes % 1.1 % (0-4); Lymphocytes # 2.2 K/mcL (0.6-4.6); Lymphocytes % 24.2 %; Mean Corpuscular HGB Conc 31.1 g/dL (31.6-35.5); Mean Corpuscular Hemoglobin 29.6 pg (28.0-33.3); Mean Corpuscular Volume 95.4 fL (83.0-100.0); Mean Platelet Volume 11.5 fL (9.4-12.4); Monocytes # 0.8 K/mcL (0.0-1.3); Monocytes % 8.3 %; Neutrophils # 5.6 K/mcL (1.6-8.9); Platelet Count 170 K/mcL (140-400); Red Blood Count 3.68 M/mcL (3.82-4.97); Red Cell Distribution Width 15.5 % (11.5-14.5); Segmented Neutrophils % 62.9 %
[2020-04-13 05:03] LABS: Calcium 9.6 mg/dL (8.6-10.3); Potassium 4.1 mEq/L (3.5-5.1)
[2020-04-13] MEDS: Aspirin 81 MG TAB.CHEW PO SCH (08:08)
[2020-04-13] MEDS: Metoprolol XL (24 HR) Succ 25 MG TAB.ER.24H PO SCH ×2 (08:08→20:15)
[2020-04-13] MEDS: levETIRAcetam 250 MG TABLET PO SCH ×2 (08:09→20:14)
[2020-04-13] MEDS: Furosemide 40 MG TABLET PO SCH (08:09)
[2020-04-13] MEDS: Cholecalciferol (D-3) 1,000 UNIT (25MCG) TABLET PO SCH (08:09)
[2020-04-13] MEDS: QUEtiapine Fumarate 25 MG TABLET PO SCH ×2 (08:09→20:14)
[2020-04-13] MEDS: Cyanocobalamin (B-12) 1,000 MCG TABLET PO SCH (08:10)
[2020-04-13] MEDS: *HR* Rivaroxaban 15 MG TABLET PO SCH (17:15)
[2020-04-14] MEDS: Levalbuterol Neb 0.63 MG/3 ML IH SCH ×4 (04:16→22:10)
[2020-04-14 06:05] LABS: Mean Corpuscular HGB Conc 31.6 g/dL (31.6-35.5); Mean Corpuscular Hemoglobin 29.5 pg (28.0-33.3); Mean Corpuscular Volume 93.4 fL (83.0-100.0); Platelet Count 184 K/mcL (140-400); Red Blood Count 4.07 M/mcL (3.82-4.97); Red Cell Distribution Width 15.6 % (11.5-14.5); White Blood Count 12.3 K/mcL (4.3-11.1)
[2020-04-14 06:24] LABS: Calcium 9.9 mg/dL (8.6-10.3); Potassium 3.9 mEq/L (3.5-5.1)
[2020-04-14] MEDS: Furosemide 40 MG TABLET PO SCH (07:49)
[2020-04-14] MEDS: levETIRAcetam 250 MG TABLET PO SCH ×2 (07:50→21:05)
[2020-04-14] MEDS: QUEtiapine Fumarate 25 MG TABLET PO SCH ×2 (07:50→21:06)
[2020-04-14] MEDS: Cholecalciferol (D-3) 1,000 UNIT (25MCG) TABLET PO SCH (07:50)
[2020-04-14] MEDS: Aspirin 81 MG TAB.CHEW PO SCH (07:50)
[2020-04-14] MEDS: Metoprolol XL (24 HR) Succ 25 MG TAB.ER.24H PO SCH ×2 (07:51→21:05)
[2020-04-14] MEDS: Cyanocobalamin (B-12) 1,000 MCG TABLET PO SCH (07:51)
[2020-04-14 11:09] LABS: Bilirubin,Urine Negative (Negative); Blood,Urine Negative (Negative); Clarity,Urine Clear (Clear); Color,Urine Light-Yellow (Yellow); Glucose,Urine (UA) Normal (Normal); Ketones,Urine Negative (Negative); Leukocyte Esterase,Urine Negative (Negative); Nitrite,Urine Negative (Negative); Protein,Urine Negative (Neg-Trace); Specific Gravity,Urine 1.015 (1.010-1.025); Urobilinogen,Urine Normal (Normal)
[2020-04-14] MEDS: *HR* Rivaroxaban 15 MG TABLET PO SCH (17:08)
[2020-04-15] MEDS: Levalbuterol Neb 0.63 MG/3 ML IH SCH ×3 (03:39→15:19)
[2020-04-15 04:11] LABS: Basophils % 0.3 %; Eosinophils # 0.4 K/mcL (0.0-0.6); Eosinophils % 3.6 %; Hematocrit 33.7 % (35.3-44.9); Lymphocytes # 1.7 K/mcL (0.6-4.6); Lymphocytes % 18.1 %; Mean Corpuscular HGB Conc 32.6 g/dL (31.6-35.5); Mean Corpuscular Hemoglobin 30.8 pg (28.0-33.3); Mean Corpuscular Volume 94.4 fL (83.0-100.0); Mean Platelet Volume 11.9 fL (9.4-12.4); Monocytes # 0.8 K/mcL (0.0-1.3); Monocytes % 8.2 %; Neutrophils # 6.6 K/mcL (1.6-8.9); Platelet Count 161 K/mcL (140-400); Red Blood Count 3.57 M/mcL (3.82-4.97); Red Cell Distribution Width 15.8 % (11.5-14.5); Segmented Neutrophils % 68.8 %; White Blood Count 9.6 K/mcL (4.3-11.1)
[2020-04-15 04:28] LABS: Calcium 9.7 mg/dL (8.6-10.3); Potassium 3.6 mEq/L (3.5-5.1)
[2020-04-15] MEDS: levETIRAcetam 250 MG TABLET PO SCH (10:16)
[2020-04-15] MEDS: Cyanocobalamin (B-12) 1,000 MCG TABLET PO SCH (10:16)
[2020-04-15] MEDS: Metoprolol XL (24 HR) Succ 25 MG TAB.ER.24H PO SCH (10:16)
[2020-04-15] MEDS: Aspirin 81 MG TAB.CHEW PO SCH (10:16)
[2020-04-15] MEDS: Cholecalciferol (D-3) 1,000 UNIT (25MCG) TABLET PO SCH (10:16)
[2020-04-15] MEDS: QUEtiapine Fumarate 25 MG TABLET PO SCH (10:16)
[2020-04-15 11:33] VITALS: BP 101/62
== END 2020-04-15 15:44 | DRG 207 ==
LOC: ICNU 23:31 → EMEROOARM 23:31 → ICNU 03-30 05:50 → SUATTDRO 03-30 06:08 → 2NNU 04-09 20:04 → 3ANU 04-14 12:47
PROVIDERS: ADMIT Student in an Organized Health Care Education/Training Program; ATTEND Internal Medicine

== ENCOUNTER 2020-06-08 15:46 | Inpatient (IN) ==
[2020-06-08 16:54] LABS: Basophils % 0.3 %; Eosinophils # 0.2 K/mcL (0.0-0.6); Eosinophils % 3.1 %; Hematocrit 24.1 % (35.3-44.9); Immature Granulocytes % 0.3 % (0-4); Lymphocytes # 1.9 K/mcL (0.6-4.6); Mean Corpuscular HGB Conc 30.3 g/dL (31.6-35.5); Mean Corpuscular Hemoglobin 30.9 pg (28.0-33.3); Mean Corpuscular Volume 102.1 fL (83.0-100.0); Mean Platelet Volume 9.4 fL (9.4-12.4); Monocytes # 0.6 K/mcL (0.0-1.3); Monocytes % 9.9 %; Neutrophils # 3.5 K/mcL (1.6-8.9); Platelet Count 167 K/mcL (140-400); Red Blood Count 2.36 M/mcL (3.82-4.97); Red Cell Distribution Width 16.3 % (11.5-14.5); Segmented Neutrophils % 56.4 %; White Blood Count 6.2 K/mcL (4.3-11.1)
[2020-06-08 16:56] LABS: Hemoglobin 7.3 g/dL (11.5-15.4)
[2020-06-08 16:58] LABS: INR 1.3; Prothrombin Time 14.6 Seconds (9.4-12.1)
[2020-06-08 17:20] LABS: Albumin 3.6 g/dL (3.5-5.7); Albumin/Globulin Ratio 1.6 (1.1-2.2); Bilirubin,Total 0.7 mg/dL (0.3-1.0); Calcium 9.1 mg/dL (8.6-10.3); Globulin 2.2 g/dL (2.4-3.5); Phosphorous 3.3 mg/dL (2.7-4.5); Potassium 4.5 mEq/L (3.5-5.1); Total Protein 5.8 g/dL (6.4-8.9); Troponin I 0.04 ng/mL (< 0.04)
[2020-06-08 17:58] LABS: Bilirubin,Urine Negative (Negative); Blood,Urine Negative (Negative); Clarity,Urine Clear (Clear); Color,Urine Light-Yellow (Yellow); Glucose,Urine (UA) Normal (Normal); Ketones,Urine Negative (Negative); Leukocyte Esterase,Urine Negative (Negative); Nitrite,Urine Negative (Negative); PH,Urine 5.5 pH Units (5.0-8.0); Protein,Urine Negative (Neg-Trace); Specific Gravity,Urine 1.014 (1.010-1.025); Urobilinogen,Urine Normal (Normal)
[2020-06-08] MEDS ORDERED: 0.9 % Sodium Chloride 1,000 ML IVC ONE ×3 (18:43→19:47)
[2020-06-08] MEDS ORDERED: 0.9 % Sodium Chloride 250 ML ONE ×2 (20:11→23:37)
[2020-06-08] MEDS ORDERED: Naloxone 0.4 MG/ML INJ IVP PRN (21:36)
[2020-06-08] MEDS ORDERED: *HR* OxyCODONE Immed Rel 5 MG TABLET PO PRN (21:42)
[2020-06-08] MEDS ORDERED: Acetaminophen 325 MG TABLET PO PRN (21:42)
[2020-06-08] MEDS ORDERED: Ondansetron 4 MG/2 ML VIAL IVP PRN (21:42)
[2020-06-08] MEDS ORDERED: Levalbuterol Neb 0.63 MG/3 ML IH PRN (21:50)
[2020-06-08] MEDS ORDERED: Nitroglycerin 0.4 MG TAB.SUBL SL PRN (21:50)
[2020-06-08] MEDS ORDERED: Melatonin 3 MG TABLET PO PRN (21:50)
[2020-06-08] MEDS ORDERED: polyethylene glycoL 3350 17 GM POWD.PACK PO PRN (21:50)
[2020-06-08 21:52] LABS: Reticulocyte % 4.2 % (1.6-2.8)
[2020-06-08] MEDS ORDERED: Metoprolol XL (24 HR) Succ 25 MG TAB.ER.24H PO ONE (22:00)
[2020-06-08 22:23] LABS: Folate 6.6 ng/mL (3.0-16.0)
[2020-06-08] MEDS: Ringers Solution, Lactated 1,000 ML IVC SCH (22:48)
[2020-06-09 00:53] LABS: Adenovirus Not Detected (Not Detect); Bordetella Pertussis Not Detected (Not Detect); Chlamydophila pneumoniae Not Detected (Not Detect); Coronavirus 229E Not Detected (Not Detect); Coronavirus HKU1 Not Detected (Not Detect); Coronavirus NL63 Not Detected (Not Detect); Coronavirus OC43 Not Detected (Not Detect); Human Metapneumovirus Not Detected (Not Detect); Human Rhinovirus/Enterovirus Not Detected (Not Detect); Influenza A Subtype 2009 H1 Not Detected (Not Detect); Influenza B Not Detected (Not Detect); Mycoplasma pneumoniae Not Detected (Not Detect); Parainfluenza Virus 1 Not Detected (Not Detect); Parainfluenza Virus 2 Not Detected (Not Detect); Parainfluenza Virus 3 Not Detected (Not Detect); Parainfluenza Virus 4 Not Detected (Not Detect); Respiratory Syncytial Virus Not Detected (Not Detect); SARS-CoV-2 Not Detected (Not Detect)
[2020-06-09 04:53] LABS: Basophils % 0.6 %; Eosinophils # 0.2 K/mcL (0.0-0.6); Eosinophils % 3.6 %; Hematocrit 28.4 % (35.3-44.9); Immature Granulocytes % 0.2 % (0-4); Lymphocytes # 1.5 K/mcL (0.6-4.6); Lymphocytes % 30.9 %; Mean Corpuscular HGB Conc 31.3 g/dL (31.6-35.5); Mean Corpuscular Hemoglobin 30.5 pg (28.0-33.3); Mean Corpuscular Volume 97.3 fL (83.0-100.0); Monocytes # 0.4 K/mcL (0.0-1.3); Monocytes % 8.8 %; Neutrophils # 2.8 K/mcL (1.6-8.9); Platelet Count 142 K/mcL (140-400); Red Blood Count 2.92 M/mcL (3.82-4.97); Red Cell Distribution Width 17.3 % (11.5-14.5); Segmented Neutrophils % 55.9 %
[2020-06-09 04:54] LABS: Hemoglobin 8.9 g/dL (11.5-15.4)
[2020-06-09 04:59] LABS: INR 1.1; Prothrombin Time 12.7 Seconds (9.4-12.1)
[2020-06-09 05:13] LABS: Albumin 3.2 g/dL (3.5-5.7); Albumin/Globulin Ratio 1.6 (1.1-2.2); Calcium 8.1 mg/dL (8.6-10.3); Magnesium 1.8 mg/dL (1.6-2.6); Potassium 4.1 mEq/L (3.5-5.1); Total Protein 5.2 g/dL (6.4-8.9)
[2020-06-09 05:28] LABS: Thyroid Stimulating Hormone 0.14 mcIU/mL (0.340-5.600)
[2020-06-09] MEDS: Spironolactone 25 MG TABLET PO SCH (08:05)
[2020-06-09] MEDS: Cyanocobalamin (B-12) 1,000 MCG TABLET PO SCH (08:05)
[2020-06-09] MEDS: Cholecalciferol (D-3) 1,000 UNIT (25MCG) TABLET PO SCH (08:05)
[2020-06-09] MEDS: FLUoxetine 20 MG CAPSULE PO SCH (08:05)
[2020-06-09] MEDS: levETIRAcetam 250 MG TABLET PO SCH ×2 (08:05→19:29)
[2020-06-09] MEDS: Aspirin Enteric Coated 81 MG Tablet PO SCH (08:05)
[2020-06-09] MEDS: lisinopriL 5 MG TABLET PO SCH (08:06)
[2020-06-09] MEDS: Ringers Solution, Lactated 1,000 ML IVC SCH (11:17)
[2020-06-09] MEDS: *HR* OxyCODONE Immed Rel 5 MG TABLET PO PRN ×2 (15:02→21:04)
[2020-06-09 15:12] LABS: Hematocrit 28.9 % (35.3-44.9); Hemoglobin 9.3 g/dL (11.5-15.4)
[2020-06-09] MEDS: *HR* Rivaroxaban 15 MG TABLET PO SCH (16:57)
[2020-06-10 02:10] LABS: Basophils # 0.1 K/mcL (0.0-0.2); Basophils % 0.6 %; Eosinophils # 0.3 K/mcL (0.0-0.6); Eosinophils % 3.2 %; Hematocrit 30.1 % (35.3-44.9); Hemoglobin 9.4 g/dL (11.5-15.4); Immature Granulocytes % 0.3 % (0-4); Lymphocytes # 2.3 K/mcL (0.6-4.6); Mean Corpuscular HGB Conc 31.2 g/dL (31.6-35.5); Mean Corpuscular Hemoglobin 31.1 pg (28.0-33.3); Mean Corpuscular Volume 99.7 fL (83.0-100.0); Mean Platelet Volume 10.2 fL (9.4-12.4); Monocytes # 0.6 K/mcL (0.0-1.3); Neutrophils # 4.6 K/mcL (1.6-8.9); Platelet Count 150 K/mcL (140-400); Red Blood Count 3.02 M/mcL (3.82-4.97); Red Cell Distribution Width 17.1 % (11.5-14.5); Segmented Neutrophils % 58.9 %; White Blood Count 7.8 K/mcL (4.3-11.1)
[2020-06-10 02:20] LABS: Magnesium 1.7 mg/dL (1.6-2.6); Potassium 4.2 mEq/L (3.5-5.1)
[2020-06-10] MEDS ORDERED: *HR* Metoprolol 5 MG/5 ML VIAL IVP ONE ×2 (03:29→03:55)
[2020-06-10] MEDS ORDERED: Furosemide 40 MG/4 ML VIAL ONE (03:31)
[2020-06-10] MEDS: Levalbuterol Neb 1.25 MG/3 ML IH PRN (03:41)
[2020-06-10] MEDS ORDERED: Furosemide 40 MG/4 ML VIAL IVP ONE ×2 (03:44→06:00)
[2020-06-10] MEDS ORDERED: Morphine Sulfate 2 MG/ML SYRINGE IVP ONE (03:44)
[2020-06-10 04:07] LABS: ABG Base Excess -7 mEq/L (-2 to 3); ABG HCO3 19 mEq/L (21-27); ABG Oxygen Saturation 84 % (95-98); ABG PCO2 39 mmHg (35-45); ABG PO2 54 mmHg (85-104); ABG TCO2 20 mEq/L (20-26)
[2020-06-10] MEDS ORDERED: Perflutren Lipid Microsphere 1.3 ML in 0.9 % Sodium Chloride 8.7 ML IVP PRN (04:16)
[2020-06-10] MEDS: Aspirin Enteric Coated 81 MG Tablet PO SCH (08:22)
[2020-06-10] MEDS: Spironolactone 25 MG TABLET PO SCH (08:22)
[2020-06-10] MEDS: lisinopriL 5 MG TABLET PO SCH (08:22)
[2020-06-10] MEDS: FLUoxetine 20 MG CAPSULE PO SCH (08:23)
[2020-06-10] MEDS: Cholecalciferol (D-3) 1,000 UNIT (25MCG) TABLET PO SCH (08:23)
[2020-06-10] MEDS: levETIRAcetam 250 MG TABLET PO SCH ×2 (08:23→20:25)
[2020-06-10] MEDS: Cyanocobalamin (B-12) 1,000 MCG TABLET PO SCH (08:23)
[2020-06-10 13:01] LABS: Albumin 3.6 g/dL (3.5-5.7); Albumin/Globulin Ratio 1.7 (1.1-2.2); Bilirubin,Direct 0.3 mg/dL (0.0-0.2); Bilirubin,Total 1.3 mg/dL (0.3-1.0); Globulin 2.1 g/dL (2.4-3.5); Total Protein 5.7 g/dL (6.4-8.9)
[2020-06-10 17:07] LABS: Hematocrit 28.8 % (35.3-44.9); Hemoglobin 9.3 g/dL (11.5-15.4)
[2020-06-10] MEDS: *HR* Rivaroxaban 15 MG TABLET PO SCH (17:09)
[2020-06-10] MEDS: Acetaminophen 325 MG TABLET PO PRN (18:56)
[2020-06-11 05:23] LABS: Basophils % 0.6 %; Eosinophils # 0.2 K/mcL (0.0-0.6); Eosinophils % 4.3 %; Hematocrit 27.8 % (35.3-44.9); Immature Granulocytes % 0.2 % (0-4); Lymphocytes # 1.4 K/mcL (0.6-4.6); Lymphocytes % 28.5 %; Mean Corpuscular HGB Conc 32.4 g/dL (31.6-35.5); Mean Corpuscular Hemoglobin 31.5 pg (28.0-33.3); Mean Corpuscular Volume 97.2 fL (83.0-100.0); Mean Platelet Volume 10.2 fL (9.4-12.4); Monocytes # 0.4 K/mcL (0.0-1.3); Monocytes % 8.9 %; Neutrophils # 2.8 K/mcL (1.6-8.9); Platelet Count 144 K/mcL (140-400); Red Blood Count 2.86 M/mcL (3.82-4.97); Red Cell Distribution Width 15.9 % (11.5-14.5); Segmented Neutrophils % 57.5 %; White Blood Count 4.9 K/mcL (4.3-11.1)
[2020-06-11 05:30] LABS: Immature Reticulocyte % 14.2 % (11.0-38.0); Retculocyte # 0.07 M/mcL (0.05-0.10); Reticulocyte % 2.7 % (1.6-2.8)
[2020-06-11 05:45] LABS: Albumin 3.4 g/dL (3.5-5.7); Albumin/Globulin Ratio 1.6 (1.1-2.2); Bilirubin,Direct 0.3 mg/dL (0.0-0.2); Bilirubin,Total 1.3 mg/dL (0.3-1.0); Calcium 9.5 mg/dL (8.6-10.3); Globulin 2.1 g/dL (2.4-3.5); Magnesium 1.6 mg/dL (1.6-2.6); Potassium 3.9 mEq/L (3.5-5.1); Total Protein 5.5 g/dL (6.4-8.9)
[2020-06-11 05:58] LABS: Thyroid Stimulating Hormone 0.234 mcIU/mL (0.340-5.600)
[2020-06-11 06:00] LABS: Triiodothyronine (T3) Free 2.29 pg/mL (2.50-3.90)
[2020-06-11] MEDS: Aspirin Enteric Coated 81 MG Tablet PO SCH (09:44)
[2020-06-11] MEDS: FLUoxetine 20 MG CAPSULE PO SCH (09:44)
[2020-06-11] MEDS: Spironolactone 25 MG TABLET PO SCH ×2 (09:44→09:49)
[2020-06-11] MEDS: Cholecalciferol (D-3) 1,000 UNIT (25MCG) TABLET PO SCH (09:44)
[2020-06-11] MEDS: Cyanocobalamin (B-12) 1,000 MCG TABLET PO SCH (09:44)
[2020-06-11] MEDS: levETIRAcetam 250 MG TABLET PO SCH ×2 (09:44→20:44)
[2020-06-11] MEDS: *HR* OxyCODONE/APAP 5/325 TABLET PO PRN ×2 (10:10→18:41)
[2020-06-11] MEDS: Furosemide 20 MG TABLET PO SCH (15:02)
[2020-06-11] MEDS: Acetaminophen 325 MG TABLET PO PRN (15:28)
[2020-06-11] MEDS: *HR* Rivaroxaban 15 MG TABLET PO SCH (16:48)
[2020-06-12] MEDS: *HR* OxyCODONE/APAP 5/325 TABLET PO PRN ×2 (04:12→16:51)
[2020-06-12 05:48] LABS: Basophils % 0.6 %; Eosinophils # 0.2 K/mcL (0.0-0.6); Eosinophils % 4.2 %; Hematocrit 30.7 % (35.3-44.9); Hemoglobin 9.8 g/dL (11.5-15.4); Lymphocytes # 1.8 K/mcL (0.6-4.6); Lymphocytes % 34.5 %; Mean Corpuscular HGB Conc 31.9 g/dL (31.6-35.5); Mean Corpuscular Hemoglobin 30.4 pg (28.0-33.3); Mean Corpuscular Volume 95.3 fL (83.0-100.0); Mean Platelet Volume 10.8 fL (9.4-12.4); Monocytes # 0.5 K/mcL (0.0-1.3); Monocytes % 9.4 %; Neutrophils # 2.7 K/mcL (1.6-8.9); Platelet Count 150 K/mcL (140-400); Red Blood Count 3.22 M/mcL (3.82-4.97); Red Cell Distribution Width 15.3 % (11.5-14.5); Segmented Neutrophils % 51.3 %; White Blood Count 5.3 K/mcL (4.3-11.1)
[2020-06-12 06:07] LABS: Calcium 9.7 mg/dL (8.6-10.3); Magnesium 1.7 mg/dL (1.6-2.6); Potassium 3.9 mEq/L (3.5-5.1)
[2020-06-12] MEDS: Cholecalciferol (D-3) 1,000 UNIT (25MCG) TABLET PO SCH (08:02)
[2020-06-12] MEDS: Metoprolol XL (24 HR) Succ 25 MG TAB.ER.24H PO SCH (08:02)
[2020-06-12] MEDS: Cyanocobalamin (B-12) 1,000 MCG TABLET PO SCH (08:02)
[2020-06-12] MEDS: Aspirin Enteric Coated 81 MG Tablet PO SCH (08:02)
[2020-06-12] MEDS: levETIRAcetam 250 MG TABLET PO SCH ×2 (08:02→20:41)
[2020-06-12] MEDS: FLUoxetine 20 MG CAPSULE PO SCH (08:04)
[2020-06-12] MEDS: Spironolactone 25 MG TABLET PO SCH (08:04)
[2020-06-12] MEDS: Acetaminophen 325 MG TABLET PO PRN (09:45)
[2020-06-12] MEDS: Furosemide 20 MG TABLET PO SCH (09:47)
[2020-06-12] MEDS: lisinopriL 5 MG TABLET PO SCH (14:52)
[2020-06-12] MEDS: *HR* Rivaroxaban 15 MG TABLET PO SCH (16:51)
[2020-06-13 01:41] LABS: Basophils % 0.7 %; Eosinophils # 0.2 K/mcL (0.0-0.6); Eosinophils % 3.7 %; Hematocrit 33.9 % (35.3-44.9); Hemoglobin 10.7 g/dL (11.5-15.4); Immature Granulocytes % 0.2 % (0-4); Lymphocytes % 36.2 %; Mean Corpuscular HGB Conc 31.6 g/dL (31.6-35.5); Mean Corpuscular Hemoglobin 30.3 pg (28.0-33.3); Mean Platelet Volume 10.4 fL (9.4-12.4); Monocytes # 0.5 K/mcL (0.0-1.3); Monocytes % 8.3 %; Neutrophils # 2.8 K/mcL (1.6-8.9); Platelet Count 166 K/mcL (140-400); Red Blood Count 3.53 M/mcL (3.82-4.97); Red Cell Distribution Width 15.2 % (11.5-14.5); Segmented Neutrophils % 50.9 %; White Blood Count 5.4 K/mcL (4.3-11.1)
[2020-06-13 02:09] LABS: Calcium 9.7 mg/dL (8.6-10.3); Magnesium 1.8 mg/dL (1.6-2.6); Potassium 3.9 mEq/L (3.5-5.1)
[2020-06-13] MEDS: levETIRAcetam 250 MG TABLET PO SCH ×2 (08:56→20:43)
[2020-06-13] MEDS: Metoprolol XL (24 HR) Succ 25 MG TAB.ER.24H PO SCH (08:57)
[2020-06-13] MEDS: Cholecalciferol (D-3) 1,000 UNIT (25MCG) TABLET PO SCH (08:57)
[2020-06-13] MEDS: FLUoxetine 20 MG CAPSULE PO SCH (08:57)
[2020-06-13] MEDS: Cyanocobalamin (B-12) 1,000 MCG TABLET PO SCH (09:00)
[2020-06-13] MEDS: Furosemide 20 MG TABLET PO SCH (09:01)
[2020-06-13] MEDS: Spironolactone 25 MG TABLET PO SCH (09:01)
[2020-06-13] MEDS: lisinopriL 5 MG TABLET PO SCH (09:02)
[2020-06-13] MEDS: *HR* Rivaroxaban 15 MG TABLET PO SCH (16:06)
[2020-06-13] MEDS: *HR* OxyCODONE/APAP 5/325 TABLET PO PRN (20:42)
[2020-06-14 02:44] LABS: Basophils % 0.7 %; Eosinophils # 0.3 K/mcL (0.0-0.6); Eosinophils % 4.4 %; Hematocrit 32.2 % (35.3-44.9); Hemoglobin 10.1 g/dL (11.5-15.4); Immature Granulocytes % 0.3 % (0-4); Lymphocytes # 2.2 K/mcL (0.6-4.6); Lymphocytes % 35.9 %; Mean Corpuscular HGB Conc 31.4 g/dL (31.6-35.5); Mean Corpuscular Hemoglobin 30.2 pg (28.0-33.3); Mean Corpuscular Volume 96.4 fL (83.0-100.0); Mean Platelet Volume 10.5 fL (9.4-12.4); Monocytes # 0.6 K/mcL (0.0-1.3); Monocytes % 10.4 %; Platelet Count 161 K/mcL (140-400); Red Blood Count 3.34 M/mcL (3.82-4.97); Red Cell Distribution Width 14.8 % (11.5-14.5); Segmented Neutrophils % 48.3 %; White Blood Count 6.2 K/mcL (4.3-11.1)
[2020-06-14 02:49] LABS: Calcium 9.5 mg/dL (8.6-10.3); Potassium 4.1 mEq/L (3.5-5.1)
[2020-06-14] MEDS: Furosemide 20 MG TABLET PO SCH (09:25)
[2020-06-14] MEDS: Metoprolol XL (24 HR) Succ 25 MG TAB.ER.24H PO SCH (09:25)
[2020-06-14] MEDS: Cyanocobalamin (B-12) 1,000 MCG TABLET PO SCH (09:25)
[2020-06-14] MEDS: Cholecalciferol (D-3) 1,000 UNIT (25MCG) TABLET PO SCH (09:25)
[2020-06-14] MEDS: *HR* OxyCODONE/APAP 5/325 TABLET PO PRN ×2 (09:27→19:52)
[2020-06-14] MEDS: lisinopriL 5 MG TABLET PO SCH (09:28)
[2020-06-14] MEDS: Spironolactone 25 MG TABLET PO SCH (09:28)
[2020-06-14] MEDS: FLUoxetine 20 MG CAPSULE PO SCH (09:28)
[2020-06-14] MEDS: levETIRAcetam 250 MG TABLET PO SCH ×2 (09:28→19:52)
[2020-06-14] MEDS: *HR* Rivaroxaban 15 MG TABLET PO SCH (16:48)
[2020-06-15 03:42] LABS: Basophils % 0.6 %; Eosinophils # 0.3 K/mcL (0.0-0.6); Eosinophils % 4.7 %; Hematocrit 31.6 % (35.3-44.9); Hemoglobin 9.9 g/dL (11.5-15.4); Immature Granulocytes % 0.2 % (0-4); Lymphocytes # 2.2 K/mcL (0.6-4.6); Mean Corpuscular HGB Conc 31.3 g/dL (31.6-35.5); Mean Corpuscular Hemoglobin 30.3 pg (28.0-33.3); Mean Corpuscular Volume 96.6 fL (83.0-100.0); Mean Platelet Volume 10.7 fL (9.4-12.4); Monocytes # 0.6 K/mcL (0.0-1.3); Monocytes % 9.7 %; Platelet Count 158 K/mcL (140-400); Red Blood Count 3.27 M/mcL (3.82-4.97); Red Cell Distribution Width 14.9 % (11.5-14.5); Segmented Neutrophils % 48.8 %; White Blood Count 6.2 K/mcL (4.3-11.1)
[2020-06-15 03:58] LABS: Calcium 9.5 mg/dL (8.6-10.3); Potassium 4.2 mEq/L (3.5-5.1)
[2020-06-15] MEDS: Cholecalciferol (D-3) 1,000 UNIT (25MCG) TABLET PO SCH (09:02)
[2020-06-15] MEDS: *HR* OxyCODONE/APAP 5/325 TABLET PO PRN (09:02)
[2020-06-15] MEDS: Furosemide 20 MG TABLET PO SCH (09:03)
[2020-06-15] MEDS: Metoprolol XL (24 HR) Succ 25 MG TAB.ER.24H PO SCH (09:03)
[2020-06-15] MEDS: lisinopriL 5 MG TABLET PO SCH (09:03)
[2020-06-15] MEDS: Cyanocobalamin (B-12) 1,000 MCG TABLET PO SCH (09:03)
[2020-06-15] MEDS: FLUoxetine 20 MG CAPSULE PO SCH (09:04)
[2020-06-15] MEDS: levETIRAcetam 250 MG TABLET PO SCH ×2 (09:04→20:38)
[2020-06-15] MEDS: Spironolactone 25 MG TABLET PO SCH (09:04)
[2020-06-15] MEDS: *HR* Rivaroxaban 15 MG TABLET PO SCH (16:39)
[2020-06-15] MEDS: Levalbuterol Neb 1.25 MG/3 ML IH PRN (22:37)
[2020-06-16 04:53] LABS: Basophils % 0.7 %; Eosinophils # 0.2 K/mcL (0.0-0.6); Eosinophils % 2.9 %; Hematocrit 32.7 % (35.3-44.9); Hemoglobin 10.5 g/dL (11.5-15.4); Immature Granulocytes % 0.3 % (0-4); Lymphocytes # 1.7 K/mcL (0.6-4.6); Lymphocytes % 28.6 %; Mean Corpuscular HGB Conc 32.1 g/dL (31.6-35.5); Mean Corpuscular Hemoglobin 31.1 pg (28.0-33.3); Mean Corpuscular Volume 96.7 fL (83.0-100.0); Mean Platelet Volume 10.5 fL (9.4-12.4); Monocytes # 0.6 K/mcL (0.0-1.3); Monocytes % 9.5 %; Neutrophils # 3.4 K/mcL (1.6-8.9); Platelet Count 162 K/mcL (140-400); Red Blood Count 3.38 M/mcL (3.82-4.97); Red Cell Distribution Width 14.7 % (11.5-14.5); White Blood Count 5.9 K/mcL (4.3-11.1)
[2020-06-16 05:15] LABS: Calcium 10.2 mg/dL (8.6-10.3); Magnesium 2.1 mg/dL (1.6-2.6); Phosphorous 4.6 mg/dL (2.7-4.5); Potassium 4.4 mEq/L (3.5-5.1)
[2020-06-16] MEDS: Acetaminophen 325 MG TABLET PO PRN (08:13)
[2020-06-16] MEDS: FLUoxetine 20 MG CAPSULE PO SCH (08:14)
[2020-06-16] MEDS: Spironolactone 25 MG TABLET PO SCH (08:14)
[2020-06-16] MEDS: Cyanocobalamin (B-12) 1,000 MCG TABLET PO SCH (08:14)
[2020-06-16] MEDS: Cholecalciferol (D-3) 1,000 UNIT (25MCG) TABLET PO SCH (08:14)
[2020-06-16] MEDS: levETIRAcetam 250 MG TABLET PO SCH ×2 (08:15→20:51)
[2020-06-16] MEDS: lisinopriL 5 MG TABLET PO SCH (08:15)
[2020-06-16] MEDS: Metoprolol XL (24 HR) Succ 25 MG TAB.ER.24H PO SCH (08:16)
[2020-06-16] MEDS: Furosemide 20 MG TABLET PO SCH (08:16)
[2020-06-16] MEDS: *HR* Rivaroxaban 15 MG TABLET PO SCH (17:03)
[2020-06-16] MEDS: *HR* OxyCODONE/APAP 5/325 TABLET PO PRN (17:03)
[2020-06-17] MEDS: Metoprolol XL (24 HR) Succ 25 MG TAB.ER.24H PO SCH (08:17)
[2020-06-17] MEDS: Cholecalciferol (D-3) 1,000 UNIT (25MCG) TABLET PO SCH (08:17)
[2020-06-17] MEDS: FLUoxetine 20 MG CAPSULE PO SCH (08:17)
[2020-06-17] MEDS: levETIRAcetam 250 MG TABLET PO SCH ×2 (08:17→18:11)
[2020-06-17] MEDS: Furosemide 20 MG TABLET PO SCH (08:18)
[2020-06-17] MEDS: Cyanocobalamin (B-12) 1,000 MCG TABLET PO SCH (08:18)
[2020-06-17] MEDS: lisinopriL 5 MG TABLET PO SCH (08:18)
[2020-06-17] MEDS: Spironolactone 25 MG TABLET PO SCH (08:18)
[2020-06-17] MEDS: *HR* Rivaroxaban 15 MG TABLET PO SCH (18:11)
[2020-06-18] MEDS: Acetaminophen 325 MG TABLET PO PRN (09:52)
[2020-06-18] MEDS: Metoprolol XL (24 HR) Succ 25 MG TAB.ER.24H PO SCH (09:52)
[2020-06-18] MEDS: FLUoxetine 20 MG CAPSULE PO SCH (09:52)
[2020-06-18] MEDS: levETIRAcetam 250 MG TABLET PO SCH (09:52)
[2020-06-18] MEDS: lisinopriL 5 MG TABLET PO SCH (09:52)
[2020-06-18] MEDS: Cyanocobalamin (B-12) 1,000 MCG TABLET PO SCH (09:52)
[2020-06-18] MEDS: Cholecalciferol (D-3) 1,000 UNIT (25MCG) TABLET PO SCH (09:52)
[2020-06-18] MEDS: Furosemide 20 MG TABLET PO SCH (09:52)
[2020-06-18] MEDS: Spironolactone 25 MG TABLET PO SCH (09:52)
[2020-06-18 10:52] VITALS: BP 103/69
== END 2020-06-18 13:17 | DRG 280 ==
LOC: EMEROOARM 15:46 → 2ANU 15:46 → SUATTDRO 21:10 → 2ANU 21:42 → 2NNU 06-10 04:43 → SUATTDRO 06-10 14:09 → 3BNU 06-12 15:34
PROVIDERS: ADMIT Internal Medicine; ATTEND Internal Medicine

== ENCOUNTER 2020-10-29 17:34 | Inpatient (IN) ==
[2020-10-29] MEDS ORDERED: Furosemide 40 MG/4 ML VIAL IVP ONE (18:26)
[2020-10-29 18:40] LABS: Basophils % 0.6 %; Eosinophils % 0.4 %; Hematocrit 27.6 % (35.3-44.9); Hemoglobin 8.6 g/dL (11.5-15.4); Immature Granulocytes % 0.3 % (0-4); Lymphocytes # 1.3 K/mcL (0.6-4.6); Lymphocytes % 18.2 %; Mean Corpuscular HGB Conc 31.2 g/dL (31.6-35.5); Mean Corpuscular Hemoglobin 28.6 pg (28.0-33.3); Mean Corpuscular Volume 91.7 fL (83.0-100.0); Monocytes # 0.6 K/mcL (0.0-1.3); Monocytes % 8.7 %; Platelet Count 174 K/mcL (140-400); Red Blood Count 3.01 M/mcL (3.82-4.97); Red Cell Distribution Width 16.2 % (11.5-14.5); Segmented Neutrophils % 71.8 %; White Blood Count 6.9 K/mcL (4.3-11.1)
[2020-10-29 19:01] LABS: Albumin 3.8 g/dL (3.5-5.7); Albumin/Globulin Ratio 1.4 (1.1-2.2); Bilirubin,Total 0.9 mg/dL (0.3-1.0); Calcium 9.9 mg/dL (8.6-10.3); Globulin 2.7 g/dL (2.4-3.5); Potassium 5.3 mEq/L (3.5-5.1); Total Protein 6.5 g/dL (6.4-8.9)
[2020-10-29 19:21] LABS: Troponin I 0.04 ng/mL (< 0.04)
[2020-10-29] MEDS ORDERED: Naloxone 0.4 MG/ML INJ IVP PRN (20:35)
[2020-10-29] MEDS: Acetaminophen 325 MG TABLET PO PRN (21:51)
[2020-10-29] MEDS: *HR* Rivaroxaban 15 MG TABLET PO SCH (21:51)
[2020-10-29] MEDS ORDERED: Albuterol 2.5 MG/3 ML NEBULIZER IH PRN (22:00)
[2020-10-30 07:02] LABS: Basophils % 0.4 %; Eosinophils # 0.1 K/mcL (0.0-0.6); Eosinophils % 2.8 %; Hematocrit 30.3 % (35.3-44.9); Hemoglobin 9.5 g/dL (11.5-15.4); Immature Granulocytes % 0.2 % (0-4); Lymphocytes # 1.2 K/mcL (0.6-4.6); Lymphocytes % 24.5 %; Mean Corpuscular HGB Conc 31.4 g/dL (31.6-35.5); Mean Corpuscular Hemoglobin 28.7 pg (28.0-33.3); Mean Corpuscular Volume 91.5 fL (83.0-100.0); Mean Platelet Volume 10.7 fL (9.4-12.4); Monocytes # 0.5 K/mcL (0.0-1.3); Monocytes % 10.1 %; Neutrophils # 3.2 K/mcL (1.6-8.9); Platelet Count 162 K/mcL (140-400); Red Blood Count 3.31 M/mcL (3.82-4.97); Red Cell Distribution Width 16.4 % (11.5-14.5); White Blood Count 5.1 K/mcL (4.3-11.1)
[2020-10-30] MEDS ORDERED: Furosemide 40 MG/4 ML VIAL IVP SCH (09:00)
[2020-10-30] MEDS ORDERED: lisinopriL 5 MG TABLET PO SCH (09:00)
[2020-10-30 09:09] LABS: Magnesium 1.9 mg/dL (1.6-2.6); Potassium 3.9 mEq/L (3.5-5.1); Thyroid Stimulating Hormone 0.014 mcIU/mL (0.340-5.600)
[2020-10-30] MEDS: Cyanocobalamin (B-12) 1,000 MCG TABLET PO SCH (09:14)
[2020-10-30] MEDS: Cholecalciferol (D-3) 1,000 UNIT (25MCG) TABLET PO SCH (09:14)
[2020-10-30] MEDS: levETIRAcetam 250 MG TABLET PO SCH ×2 (09:14→20:36)
[2020-10-30] MEDS: FLUoxetine 20 MG CAPSULE PO SCH (09:14)
[2020-10-30] MEDS: Metoprolol XL (24 HR) Succ 25 MG TAB.ER.24H PO SCH (11:55)
[2020-10-30] MEDS: *HR* Rivaroxaban 15 MG TABLET PO SCH (17:43)
[2020-10-30] MEDS: Acetaminophen 325 MG TABLET PO PRN (18:26)
[2020-10-31 03:23] LABS: Basophils % 0.4 %; Eosinophils # 0.2 K/mcL (0.0-0.6); Eosinophils % 2.8 %; Hematocrit 27.7 % (35.3-44.9); Hemoglobin 8.5 g/dL (11.5-15.4); Immature Granulocytes % 0.4 % (0-4); Lymphocytes # 1.4 K/mcL (0.6-4.6); Lymphocytes % 24.2 %; Mean Corpuscular HGB Conc 30.7 g/dL (31.6-35.5); Mean Corpuscular Hemoglobin 28.2 pg (28.0-33.3); Mean Platelet Volume 10.9 fL (9.4-12.4); Monocytes # 0.5 K/mcL (0.0-1.3); Monocytes % 8.3 %; Neutrophils # 3.6 K/mcL (1.6-8.9); Platelet Count 175 K/mcL (140-400); Red Blood Count 3.01 M/mcL (3.82-4.97); Red Cell Distribution Width 16.2 % (11.5-14.5); Segmented Neutrophils % 63.9 %; White Blood Count 5.7 K/mcL (4.3-11.1)
[2020-10-31 03:28] LABS: Calcium 9.2 mg/dL (8.6-10.3); Magnesium 1.6 mg/dL (1.6-2.6); Potassium 3.6 mEq/L (3.5-5.1)
[2020-10-31] MEDS ORDERED: 0.9 % Sodium Chloride 250 ML IVC ONE (03:29)
[2020-10-31] MEDS ORDERED: 0.9 % Sodium Chloride 250 ML ONE (03:31)
[2020-10-31] MEDS: FLUoxetine 20 MG CAPSULE PO SCH (08:44)
[2020-10-31] MEDS: Cholecalciferol (D-3) 1,000 UNIT (25MCG) TABLET PO SCH (08:44)
[2020-10-31] MEDS: Cyanocobalamin (B-12) 1,000 MCG TABLET PO SCH (08:45)
[2020-10-31] MEDS: levETIRAcetam 250 MG TABLET PO SCH ×2 (08:45→19:31)
[2020-10-31 14:11] LABS: Amorphous Sediment,Urine Few per hpf (None-Few); Bacteria,Urine Few per hpf (None-Few); Bilirubin,Urine Negative (Negative); Blood,Urine Small (Negative); Clarity,Urine Ex.Turbid (Clear); Color,Urine Yellow (Yellow); Glucose,Urine (UA) Normal (Normal); Ketones,Urine Negative (Negative); Leukocyte Esterase,Urine Large (Negative); Mucus,Urine Few per lpf (None-Few); Nitrite,Urine Negative (Negative); Protein,Urine 70 mg/dL (Neg-Trace); Specific Gravity,Urine 1.016 (1.010-1.025); Squamous Epithelial Cell,Urine Many per hpf (None-Few); Urobilinogen,Urine Normal (Normal); WBC,Urine TNTC per hpf (0-3)
[2020-10-31] MEDS: *HR* Rivaroxaban 15 MG TABLET PO SCH (16:17)
[2020-10-31] MEDS: Acetaminophen 325 MG TABLET PO PRN (19:31)
[2020-11-01 01:45] LABS: Basophils % 0.6 %; Eosinophils # 0.2 K/mcL (0.0-0.6); Eosinophils % 3.4 %; Hematocrit 26.6 % (35.3-44.9); Hemoglobin 8.3 g/dL (11.5-15.4); Immature Granulocytes % 0.2 % (0-4); Lymphocytes # 1.8 K/mcL (0.6-4.6); Lymphocytes % 32.8 %; Mean Corpuscular HGB Conc 31.2 g/dL (31.6-35.5); Mean Corpuscular Hemoglobin 27.9 pg (28.0-33.3); Mean Corpuscular Volume 89.3 fL (83.0-100.0); Mean Platelet Volume 10.5 fL (9.4-12.4); Monocytes # 0.6 K/mcL (0.0-1.3); Monocytes % 11.1 %; Neutrophils # 2.8 K/mcL (1.6-8.9); Platelet Count 153 K/mcL (140-400); Red Blood Count 2.98 M/mcL (3.82-4.97); Red Cell Distribution Width 16.3 % (11.5-14.5); Segmented Neutrophils % 51.9 %; White Blood Count 5.3 K/mcL (4.3-11.1)
[2020-11-01 02:04] LABS: Calcium 8.8 mg/dL (8.6-10.3); Potassium 3.5 mEq/L (3.5-5.1)
[2020-11-01 02:22] LABS: Triiodothyronine (T3) Free 2.67 pg/mL (2.50-3.90)
[2020-11-01] MEDS ORDERED: 0.9 % Sodium Chloride 500 ML IVC SCH (07:30)
[2020-11-01] MEDS: levETIRAcetam 250 MG TABLET PO SCH ×2 (08:01→19:44)
[2020-11-01] MEDS: Cholecalciferol (D-3) 1,000 UNIT (25MCG) TABLET PO SCH (08:02)
[2020-11-01] MEDS: FLUoxetine 20 MG CAPSULE PO SCH (08:02)
[2020-11-01] MEDS: Cyanocobalamin (B-12) 1,000 MCG TABLET PO SCH (08:02)
[2020-11-01 11:48] LABS: Uric Acid 11.2 mg/dL (2.3-7.6)
[2020-11-01 13:47] LABS: Creatinine,Urine 34 mg/dL; Microalbumin,Urine < 7 mg/L
[2020-11-01 13:48] LABS: Sodium, Urine 18.9 mEq/L
[2020-11-01] MEDS: *HR* Rivaroxaban 15 MG TABLET PO SCH (16:07)
[2020-11-02 06:59] LABS: Basophils % 0.6 %; Eosinophils # 0.2 K/mcL (0.0-0.6); Eosinophils % 3.2 %; Hematocrit 29.6 % (35.3-44.9); Hemoglobin 9.5 g/dL (11.5-15.4); Immature Granulocytes % 0.5 % (0-4); Lymphocytes # 1.7 K/mcL (0.6-4.6); Lymphocytes % 26.6 %; Mean Corpuscular HGB Conc 32.1 g/dL (31.6-35.5); Mean Corpuscular Hemoglobin 28.1 pg (28.0-33.3); Mean Corpuscular Volume 87.6 fL (83.0-100.0); Monocytes # 0.9 K/mcL (0.0-1.3); Monocytes % 14.8 %; Neutrophils # 3.4 K/mcL (1.6-8.9); Platelet Count 172 K/mcL (140-400); Red Blood Count 3.38 M/mcL (3.82-4.97); Red Cell Distribution Width 16.3 % (11.5-14.5); Segmented Neutrophils % 54.3 %; White Blood Count 6.3 K/mcL (4.3-11.1)
[2020-11-02 07:31] LABS: Calcium 9.3 mg/dL (8.6-10.3); Potassium 4.7 mEq/L (3.5-5.1)
[2020-11-02] MEDS: levETIRAcetam 250 MG TABLET PO SCH ×2 (08:47→19:54)
[2020-11-02] MEDS: FLUoxetine 20 MG CAPSULE PO SCH (08:47)
[2020-11-02] MEDS: Metoprolol XL (24 HR) Succ 25 MG TAB.ER.24H PO SCH (08:48)
[2020-11-02] MEDS: Cyanocobalamin (B-12) 1,000 MCG TABLET PO SCH (08:48)
[2020-11-02] MEDS: Cholecalciferol (D-3) 1,000 UNIT (25MCG) TABLET PO SCH (08:48)
[2020-11-02] MEDS ORDERED: Perflutren Lipid Microsphere 1.3 ML in 0.9 % Sodium Chloride 8.7 ML IVP PRN (11:59)
[2020-11-02] MEDS: *HR* Rivaroxaban 15 MG TABLET PO SCH (15:27)
[2020-11-02] MEDS: Acetaminophen 325 MG TABLET PO PRN ×2 (15:27→21:33)
[2020-11-03 06:50] LABS: Basophils % 0.6 %; Eosinophils # 0.2 K/mcL (0.0-0.6); Eosinophils % 4.5 %; Hematocrit 30.4 % (35.3-44.9); Hemoglobin 9.5 g/dL (11.5-15.4); Immature Granulocytes % 0.4 % (0-4); Lymphocytes # 1.3 K/mcL (0.6-4.6); Lymphocytes % 24.8 %; Mean Corpuscular HGB Conc 31.3 g/dL (31.6-35.5); Mean Corpuscular Hemoglobin 28.4 pg (28.0-33.3); Monocytes # 0.5 K/mcL (0.0-1.3); Monocytes % 10.2 %; Platelet Count 165 K/mcL (140-400); Red Blood Count 3.34 M/mcL (3.82-4.97); Red Cell Distribution Width 16.3 % (11.5-14.5); Segmented Neutrophils % 59.5 %; White Blood Count 5.1 K/mcL (4.3-11.1)
[2020-11-03 07:04] LABS: Calcium 9.9 mg/dL (8.6-10.3); Potassium 4.8 mEq/L (3.5-5.1)
[2020-11-03 07:06] LABS: % Iron Saturation 19 % (15-50); Iron 49 mcg/dL (50-170); Transferrin 180 mg/dL (203-362)
[2020-11-03 07:29] LABS: Folate 5.8 ng/mL (3.0-16.0)
[2020-11-03] MEDS: levETIRAcetam 250 MG TABLET PO SCH ×2 (08:09→20:29)
[2020-11-03] MEDS: Cyanocobalamin (B-12) 1,000 MCG TABLET PO SCH (08:09)
[2020-11-03] MEDS: Cholecalciferol (D-3) 1,000 UNIT (25MCG) TABLET PO SCH (08:09)
[2020-11-03] MEDS: FLUoxetine 20 MG CAPSULE PO SCH (08:09)
[2020-11-03] MEDS: Metoprolol XL (24 HR) Succ 25 MG TAB.ER.24H PO SCH (08:10)
[2020-11-03 13:08] LABS: Vitamin B12 > 1500 pg/mL (250-1100)
[2020-11-03] MEDS: *HR* Rivaroxaban 15 MG TABLET PO SCH (16:02)
[2020-11-04 06:39] LABS: Basophils # 0.1 K/mcL (0.0-0.2); Basophils % 0.7 %; Eosinophils # 0.4 K/mcL (0.0-0.6); Eosinophils % 4.4 %; Hematocrit 31.3 % (35.3-44.9); Immature Granulocytes % 0.7 % (0-4); Lymphocytes # 2.1 K/mcL (0.6-4.6); Lymphocytes % 25.1 %; Mean Corpuscular HGB Conc 31.9 g/dL (31.6-35.5); Mean Corpuscular Hemoglobin 28.2 pg (28.0-33.3); Mean Corpuscular Volume 88.2 fL (83.0-100.0); Mean Platelet Volume 11.2 fL (9.4-12.4); Monocytes # 1.1 K/mcL (0.0-1.3); Monocytes % 12.8 %; Platelet Count 155 K/mcL (140-400); Red Blood Count 3.55 M/mcL (3.82-4.97); Red Cell Distribution Width 16.4 % (11.5-14.5); Segmented Neutrophils % 56.3 %
[2020-11-04 06:41] LABS: Neutrophils # 4.7 K/mcL (1.6-8.9); White Blood Count 8.3 K/mcL (4.3-11.1)
[2020-11-04 07:03] LABS: Calcium 9.6 mg/dL (8.6-10.3); Phosphorous 3.1 mg/dL (2.7-4.5); Potassium 5.2 mEq/L (3.5-5.1)
[2020-11-04] MEDS: Furosemide 20 MG TABLET PO SCH (09:11)
[2020-11-04] MEDS: Metoprolol XL (24 HR) Succ 25 MG TAB.ER.24H PO SCH (09:11)
[2020-11-04] MEDS: FLUoxetine 20 MG CAPSULE PO SCH (09:12)
[2020-11-04] MEDS: Cholecalciferol (D-3) 1,000 UNIT (25MCG) TABLET PO SCH (09:12)
[2020-11-04] MEDS: Cyanocobalamin (B-12) 1,000 MCG TABLET PO SCH (09:12)
[2020-11-04] MEDS: levETIRAcetam 250 MG TABLET PO SCH ×2 (09:12→20:46)
[2020-11-04] MEDS ORDERED: *HR* Heparin 5,000 UNIT/ML VIAL IVP PRN ×4 (12:15→17:00)
[2020-11-04] MEDS ORDERED: *HR* Heparin 5,000 UNIT/ML VIAL IVP ONE (12:15)
[2020-11-04] MEDS ORDERED: Insulin Human Regular 10 UNIT in 0.9 % Sodium Chloride 10 ML IV ONE (13:07)
[2020-11-04] MEDS ORDERED: *HR* Dextrose 50 % in Water (Vial) 50 ML VIAL IVP ONE (13:08)
[2020-11-04 13:19] LABS: Hematocrit 32.8 % (35.3-44.9); Hemoglobin 9.8 g/dL (11.5-15.4); Mean Corpuscular HGB Conc 29.9 g/dL (31.6-35.5); Mean Corpuscular Hemoglobin 27.6 pg (28.0-33.3); Mean Corpuscular Volume 92.4 fL (83.0-100.0); Mean Platelet Volume 10.3 fL (9.4-12.4); Platelet Count 159 K/mcL (140-400); Red Blood Count 3.55 M/mcL (3.82-4.97); Red Cell Distribution Width 16.7 % (11.5-14.5)
[2020-11-04] MEDS ORDERED: Heparin 25,000UNIT/250ML 1/2NS 25,000 UNIT/250 ML IV.SOLN IVC SCH ×3 (13:30→17:00)
[2020-11-04 13:38] LABS: Heparin anti-factor XA UFH 0.51 IU/mL (0.30-0.70); INR 1.3; Prothrombin Time 15.3 Seconds (9.4-12.1)
[2020-11-04 15:00] LABS: Activated Partial Thrombo Time 32.9 Seconds (26.0-36.0)
[2020-11-05 06:42] LABS: Basophils % 0.8 %; Eosinophils # 0.3 K/mcL (0.0-0.6); Eosinophils % 5.7 %; Hemoglobin 8.7 g/dL (11.5-15.4); Immature Granulocytes % 0.2 % (0-4); Lymphocytes # 1.5 K/mcL (0.6-4.6); Lymphocytes % 28.3 %; Mean Corpuscular Hemoglobin 27.5 pg (28.0-33.3); Mean Corpuscular Volume 91.8 fL (83.0-100.0); Mean Platelet Volume 10.3 fL (9.4-12.4); Monocytes # 0.5 K/mcL (0.0-1.3); Monocytes % 10.1 %; Neutrophils # 2.9 K/mcL (1.6-8.9); Platelet Count 147 K/mcL (140-400); Red Blood Count 3.16 M/mcL (3.82-4.97); Red Cell Distribution Width 16.5 % (11.5-14.5); Segmented Neutrophils % 54.9 %; White Blood Count 5.3 K/mcL (4.3-11.1)
[2020-11-05 07:05] LABS: Calcium 9.1 mg/dL (8.6-10.3); Magnesium 1.7 mg/dL (1.6-2.6); Phosphorous 3.7 mg/dL (2.7-4.5); Potassium 3.8 mEq/L (3.5-5.1)
[2020-11-05] MEDS ORDERED: Metoprolol XL (24 HR) Succ 25 MG TAB.ER.24H PO SCH (09:00)
[2020-11-05] MEDS: Cholecalciferol (D-3) 1,000 UNIT (25MCG) TABLET PO SCH (09:05)
[2020-11-05] MEDS: Cyanocobalamin (B-12) 1,000 MCG TABLET PO SCH (09:05)
[2020-11-05] MEDS: Furosemide 20 MG TABLET PO SCH (09:05)
[2020-11-05] MEDS: levETIRAcetam 250 MG TABLET PO SCH (09:05)
[2020-11-05] MEDS: FLUoxetine 20 MG CAPSULE PO SCH (09:05)
[2020-11-05] MEDS: Acetaminophen 325 MG TABLET PO PRN (13:28)
[2020-11-05 15:10] VITALS: BP 112/67
[2020-11-05] MEDS ORDERED: *HR* Rivaroxaban 15 MG TABLET PO SCH (17:00)
[2020-11-05] MEDS ORDERED: Furosemide 20 MG TABLET PO SCH (17:00)
== END 2020-11-05 17:30 | disposition home or self-care (01) | DRG 280 ==
LOC: EMEROOARM 17:34 → 3BNU 17:34 → SUATTDRO 19:53 → 3BNU 20:37 → SUATTDRO 10-31 13:23
PROVIDERS: ADMIT Family Medicine; ATTEND Student in an Organized Health Care Education/Training Program